=== PATIENT | female | born 1990 | race Caucasian/White ===

== ENCOUNTER 2025-04-23 11:35 | Emergency (ER) | payer MEDICARE, MEDICAID, SELFPAY ==
--- OUTSIDE RECORDS SUMMARY | 2025-04-21 11:29 | XMS_ITS | Encounter Summary ---
Author Organization [facility] Address [address] [place] [address] Care Team Providers Care Voip Technician Name Role Phone Sid Jo MD Primary Care Provider [phone] Reason for Visit * Reason Comments Oral Swelling Encounter Details Date Type Department Care Team (Late st Contact Info) Description 04/21/2025 11:29 AM EDT - 04/21/2025 1:43 PM EDT Emergency [facility] Emergency [address] [place] [id number] Aphthous ulcer (Primary Dx) Discharge Disposition: Home or Self Care Social History Tobacco Use Types Packs/Day Years Used Date Smoking Tobacco: Never Smokeless Tobacco: Never Alcohol Use Standard Drinks/Week Comments No 0 (1 standard drink = 0.6 oz pur e alcohol) Housing Instability Answer Date Recorde d Are you worried that in the next 2 months you may not have stable housing? No 04/12/2025 Food Access & Nutrition Answer Date Rec orded Do you have access to a vari ety of food including fruits and vegetables? Yes 04/12/2025 Access to Healthcare Answer Date Record ed Within the last 3 months, ho w many times did you visit the emergency department for your medical care? 2 04/12/2025 Health Literacy Answer Date Recorded How often do you need to hav e someone help you when you read instructions, pamphlets, or other written material from your doctor or pharmacy? Never 04/12/2025 Caregiver: How often do you need to have someone help you when you read instructions, pamphlets, or other written material from your doctor or pharmacy? Not on file 04/12/2025 Financial Risk Answer Date Recorded How hard is it for you to pa y for the very basics like food, housing, medical care, and air conditioning / heating? Not very hard 04/12/2025 Transportation Answer Date Recorded Has the lack of transportati on kept you from meetings, work, or from getting things needed for daily living? No Has the lack of transportati on kept you from medical appointments or from getting medications? No 04/12/2025 Social Isolation Answer Date Recorded How often do you feel lonely or isolated from th ose around you? Never 04/12/2025 Food Risk Answer Date Recorded Within the past 12 months we worried whether our food would run out before we got money to buy more. Never true 04/12/2025 Within the past 12 months th e food we bought just didn't last and we didn't have money to get more. Never true 04/12/2025 Dependent Care Answer Date Recorded Do you need help finding or paying for care for your loved ones. For example, child care team lead or elderly care for an older adult? No 04/12/2025 Education Answer Date Recorded Do you think completing more education or training, like finishing a GED, going to college, or learning a trade, would be helpful for you? No 04/12/2025 Employment and Income Answer Date Recor ded During the last four weeks, have you been actively looking for work? No 04/12/2025 Living Situation Answer Date Recorded What is your living situation? 0 04/12/2025 Interpersonal Safety Answer Date Record ed Physical Abuse 04/07/2025 Verbal Abuse 04/07/2025 Comments Unknown Sex and Gender Information Value Date Recorded Sex Assigned at Female 04/10/2025 12:51 PM EDT Legal Sex Female 1:28 PM EST Gender Identity Not on file Sexual Orientation Not on file documented as of this encounter Last Filed Vital Signs Vital Sign Reading Time Taken Comments Blood Pressure 122/90 04/21/2025 11:48 AM EDT Pulse 93 04/21/2025 11:48 AM EDT Temperature 37.1 C (98.8 F) 04/21/2025 11:48 AM EDT Respiratory Rate 18 04/21/2025 11:48 AM EDT Oxygen Saturation 94% 04/21/2025 11:48 AM EDT Inhaled Oxygen Concentration - - Weight 60.8 kg (134 lb) 04/21/2025 11:48 AM EDT Height 142.2 cm (4' 8 ) 04/21/2025 11:48 AM EDT Body Mass Index 30.04 04/21/2025 11:48 AM EDT documented in this encounter Functional Status * Are you deaf or do you have serious difficulty hearing? Answer Date of Assessment Author No 10/15/2024 2:00 AM Betty Bautista RN * Are you blind or do you have serious difficulty seeing, even when wearing glasses? Answer Date of Assessment Author No 10/15/2024 2:00 AM Betty Bautista RN * Do you have serious difficulty walking or climbing stairs? Answer Date of Assessment Author No 10/15/2024 2:00 AM Betty Bautista RN * Do you have serious difficulty dressing or bathing? Answer Date of Assessment Author No 10/15/2024 2:00 AM Betty Bautista RN * Because of a physical, mental, or emotional condition, do you have serious difficulty doing errandsalone such as visiting the doctor? Answer Date of Assessment Author Yes 10/15/2024 2:00 AM Betty Bautista RN documented as of this encounter Mental Status * Because of a physical, mental, or emotional condition, do you have serious difficulty concentrating, remembering, or making decisions? (5 years old or older) Answer Entry Date Author Yes 10/15/2024 2:00 AM Betty Bautista RN documented in this encounter Discharge Instructions * Discharge Instructions* MIMI Santamaria - 04/21/2025 1:12 PM EDT The lower lip blister is a canker sore or aphthous ulcer caused by a virus. Use Tylenol 650 for pain 1 tab 2 or 3 times a day as needed. Give her popsicles to suck on his it will help with the swelling and the pain and hydrate her. Keep her hydrated with water. Continue all other outpatient meds asprescribed. I have given you a note to [facility]. Caretakers agreed with the diagnosis and treatment plan were discharged stable. * Attachments The following attachments cannot be sent through Care Everywhere. * Armando Seo (Vincentian) documented in this encounter Medications at Time of Discharge ascorbic acid (VITAMIN C) 500 mg chewable tablet Chew 2 tablets (1,000 mg total) 1 (one) time each day. 07/23/2022 atorvastatin (LIPITOR) 80 mg tablet Take 1 tablet (80 mg total) by mouth at bedtime. buffered aspirin (BUFFERIN) 325 mg tablet Take 1 tablet (325 mg total) by mouth 1 (one) time each day. cloBAZam (ONFI) 10 mg tablet TAKE 1 TABLET BY MOUTH AT BEDTIME 90 tablet 01/23/2025 clonazePAM (KlonoPIN) 0.5 mg tablet Take 1 tablet (0.5 mg total) by mouth 3 (three) times a day if needed for seizures. Max Daily Amount: 1.5 mg 20 each 04/11/2025 05/11/2025 diphenhydramine-a luminum-magnesium -simethicone-lido roland (MAGIC MOUTHWASH) [id number] mg/30 mL liquid suspension Use 10 mL in the mouth or throat 4 (four) times a day. 04/07/2025 famciclovir (FAMVIR) 500 mg tablet Take 1 tablet (500 mg total) by mouth 3 (three) times a day for 7 days. 21 each 04/21/2025 04/28/2025 ferrous sulfate 325 mg (65 mg iron) EC tablet Take 1 tablet (325 mg total) by mouth 3 (three) times a day with meals. Do not crush, chew, or split. hydrocortisone (CORTEF) 5 mg tablet Take 1 tablet (5 mg total) by mouth 1 (one) time each day. Take 2 tablets (10 mg) in the morning and 1 tablet (5 mg) in the evening lacosamide (VIMPAT) 50 mg tablet Take 1 tablet (50 mg total) by mouth 2 (two) times a day. Max Daily Amount: 100 mg 60 tablet 04/11/2025 05/11/2025 lamoTRIgine (LaMICtal) 100 mg tablet Take 1 tablet (100 mg total) by mouth 2 (two) times a day. 02/23/2023 lamoTRIgine (LaMICtal) 25 mg tablet Take 1 tablet (25 mg total) by mouth 2 (two) times a day. 02/23/2023 levETIRAcetam (KEPPRA) 750 mg tablet Take 1 tablet (750 mg total) by mouth 2 (two) times a day. 60 each 04/11/2025 05/11/2025 levothyroxine (SYNTHROID, LEVOTHROID) 50 mcg tabletIndications :Hypothyroidism, unspecified type Take 1 tab daily 6 days a week 234 tablet 3 06/30/2024 OXcarbazepine (TRILEPTAL) 150 mg tablet Take 1 tablet (150 mg total) by mouth 1 (one) time each day. 04/08/2025 04/08/2026 OXcarbazepine (TRILEPTAL) 300 mg tablet Take 1 tablet (300 mg total) by mouth at bedtime. 04/07/2025 04/07/2026 pantoprazole (PROTONIX) 40 mg EC tablet Take 1 tablet (40 mg total) by mouth 1 (one) time each day before breakfast. 180 tablet 1 04/17/2025 sodium chloride 1 gram tablet Take 1 tablet (1 g total) by mouth 2 (two) times a day. 10/29/2023 documented as of this encounter Ordered Prescriptions Prescription Sig Dispense Quantity Refills Last Filled Start Date End Date famciclovir (FAMVIR) 500 mg tablet Take 1 tablet (500 mg total) by mouth 3 (three) times a day for 7 days. 21 each 04/21/2025 04/28/2025 documented in this encounter Discharge Disposition Disposition Code Departure Means Destination Comment s Home or Self Care documented in this encounter Progress Notes * Arlen Madden RN - 04/21/2025 12:15 PM EDT Per pts mother she has been on Keppra since 04/04/25. Reports last night she started saying her teeth bothered her last night and this morning when they woke up they noticed that the pts lip was swollen and that the pt complains that it hurts. The pts parents think that it is related to the Keppra. * Arlen Madden RN - 04/21/2025 11:44 AM EDT Pts airway is patent, throat visualized and no edema or erythema noted. There is edema to the rightlower lip. Pts respirations are even and non-labored. Lungs clear to auscultation. No signs of respiratory distress, SpO2 94% on RA. Verbal redirections given to pt to not pick at lip. Pt given towelto use to keep hands occupied. Plan of care ongoing. * Arlen Madden RN - 04/21/2025 11:29 AM EDT Pt BIBA from home with c/o right lower lip swelling. Per EMS airway patent, lungs clear, no urticaria, no hives present. Per family they noticed the swelling this morning no time given. Pt has developmental delays. Pt continues to pick at lip. Pt is alert. * MIMI Santamaria - 04/21/2025 11:27 AM EDT HPI Chief Complaint Patient presents with Oral Swelling CC: Swollen lip blister. HPI: This is a developmentally delayed 34-year-old female [facility] in a penitentiary who developed swelling and a blistering on the inside right lower lip few days ago. Caretakers state there are no othercomplaints or injuries or concerns. Needs a note to get back in the penitentiary on Thursday. 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 DX:Congenital transverse deficiency of lower limb; COMMENT: , secondary to pathologic fractures, neurofibromatosis CVA (cerebral vascular accident) ([facility] V24, [facility] V28) 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, not elsewhere classified 06/19/2006 DX: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, not elsewhere classified; COMMENT: delayed puberty, followed by dr weinstein, on estrogen patch and provera cycling Depressive disorder, not elsewhere classified 06/19/2006 DX:Depressive disorder, not elsewhere classified; COMMENT: [facility], onProzac and Respirdal Esotropia, unspecified DX:Esotropia, unspecified GERD (gastroesophageal reflux disease) 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) Hearing loss Hyperlipidemia Hyponatremia Hypopituitarism ([facility] V24) Hypothyroid Influenza DX:Influenza; COMMENT: 06/01 admitted Legally blind Malignant neoplasm of brain, unspecified site 06/19/2006 DX:Malignant neoplasm of brain, unspecified site; COMMENT: followed by dr zamora and oncology Mild intellectual disabilities 05/04/2006 DX:Mild intellectual disabilities; COMMENT: see neuropsych eval 03/29 Neurofibromatosis, 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) 05/04/2006 DX:Neurofibromatosis, 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, current or active state 06/19/2006 DX:Other specified pervasive developmental disorders, current or active state Pneumonia, organism unspecified(486) DX:Pneumonia, organism unspecified(486); COMMENT: aspiration Unspecified epilepsy with intractable epilepsy 05/04/2006 DX:Unspecified epilepsy with intractable epilepsy; COMMENT: followed by dr malagon, currently on Depakote and Phenobarb vagal nerve stimulator placed 01/27, dr conti Unspecified hypothyroidism 06/19/2006 DX:Unspecified hypothyroidism; COMMENT: on synthroid Unspecified otitis media 1992x3, 1993x2, DX:Unspecified otitis media Wheezing , DX:Wheezing Past Surgical History: Procedure Laterality Date ESOPHAGOGASTRODUODENOSCOPY 05/21/2021 PROCEDURE: WA EGD TRANSORAL BIOPSY SINGLE/MULTIPLE; COMMENT: Grade C esophagitis and hiatal hernia.recommend taking omeprazole in am before breakfast and NO food or drink 2 hours before bed OTHER SURGICAL HISTORY 1994 PROCEDURE: HISTORICAL BELOW KNEE AMP; COMMENT: secondary to to pathological fracture OTHER SURGICAL HISTORY 2005 PROCEDURE: [place] INJECTION AA&/STRD VAGUS NERVE; COMMENT: vagus nerve stimulator, again in 2019 Family History Problem Relation Name Age of Onset Hypertension Mother osteoporosis Prostate cancer Father HTN Drug abuse Brother +heroin Heart attack Maternal Grandmother diabetes, COPD, HTN Other (Other: calciphylaxis ) Maternal Grandfather Heart attack Paternal Grandfather Breast cancer Neg Hx Colon cancer Neg Hx Ovarian cancer Neg Hx Uterine cancer Neg Hx Social History Tobacco Use Smoking status: Never Smokeless tobacco: Never Substance Use Topics Alcohol use: No Drug use: No Review of Systems Review of Systems Physical Exam : General appearance reveals a developmentally delayed 34-year-old female with a canker sore right lower inner lip. Head normocephalic atraumatic. Face: Normal no erythema cellulitis swelling or adenopathy. Oral exam: Lips and mouth essentially normal other than a 7.5 mm aphthous ulcer on the inner lower lip. There is some soft tissue swelling and tenderness. No tongue swelling or angioedema airway patent. EENT: Benign normal. Neck: Supple no adenopathy thyromegaly rigidity stridor or retractions. Heart: Regular. Lungs: Clear normal respiratory effort. Mental status unobtainable due to developmental delay. Skin: No pallor cyanosis icterus rashes or mottling. ED Triage Vitals [04/21/25 1148] Temp Heart Rate Resp BP 37.1 ??C (98.8 ??F) 93 18 (!) 122/90 SpO2 Temp Source Heart Rate Source Patient Position 94 % Axillary Monitor Sitting BP Location FiO2 (%) Left arm -- Physical Exam ED Course & MDM : Differential diagnoses Ludewig's angina strep infection impetigo cellulitis abscess herpes simplex 1 herpes simplex 2 canker sore or aphthous ulcer. Clinical Impressions as of 04/21/25 1315 Aphthous ulcer Medical Decision Making Procedures MIMI Santamaria 04/21/25 1448 MIMI Santamaria 04/21/25 1502 Cosigned by Manoj Gonzalez MD at 04/22/2025 5:59 AM EDT documented in this encounter Miscellaneous Notes * ED Bed Hold Note - Princess Leslie RN - 04/21/2025 11:29 AM EDT Bed: YW-20 Expected date: 04/21/25 Expected time: Means of arrival: Comments: YADY, 34 F, SWOLLEN MOUTH, STARTED LAST NIGHT, WORSENING, HX DEV DELAY documented in this encounter Plan of Treatment Upcoming Encounters Date Type Department Care Team (Late st Contact Info) Description 05/19/2025 9:00 AM EDT Office Visit Adult Medicine [facility] - [address] [phone] Sid Jo MD [address] [place] [address] 07/03/2025 9:00 AM EST Office Visit Endocrinology - [address] [phone] Pushpa Lebron MD [address] [place] [id number] documented as of this encounter Visit Diagnoses Diagnosis Aphthous ulcer- Primary Oral aphthae documented in this encounter Administered Medications Inactive Administered Medications - up to 3 most recent administrations Medication Order MAR Action Action Date Dose Rate Site acetaminophen (TYLENOL) tablet 650 mg 650 mg, oral, Once, On Thu04/21/25 at 1312, For 1 dose Given 04/21/2025 1:39 PM EDT 650 mg documented in this encounter Active and Recently Administered Medications Times are shown in EDT. Scheduled Medication Order 04/19/2025 04/20/2025 04/21/2025 acetaminophen (TYLENOL) tablet 650 mg (COMPLETED) 650 mg, oral, Once, On Thu04/21/25 at 1312, For 1 dose 1339 (Given - Provid er: Arlen Madden RN) documented in this encounter Orders Medications Ordered That Vitaly ht Not Have Been Administered Count Last Ordered Date First Ordered Date acetaminophen (TYLENOL) tablet 650 mg 1 documented in this encounter Care Teams Voip Technician Relationship Specialty Start Date End Date Sid Jo MD [address] [place] [address] PCP - General Internal Medicine 06/29/24 documented as of this encounter
--- NOTE | ~2025-04-23 | CT_ITS ---
CLINICAL HISTORY: AMS ? trauma CT head without contrast. COMPARISON: None provided. FINDINGS: Mucosal thickening present within the ethmoid sinuses. Mastoid air cells are clear. No calvarial fracture. Atherosclerotic intracranial vasculature. No mass or mass effect. No intracranial hemorrhage or abnormal extra-axial fluid collection. Bilateral basal ganglia mineralization. Chronic lacunar infarcts present within the basal ganglia bilaterally versus prominent perivascular spaces. Ventricles are proportion with the degree of [id number] global cerebral volume loss without evidence of hydrocephalus. Basilar cisterns are patent. Posterior fossa is unremarkable. IMPRESSION: 1. No acute intracranial findings. 2. Atherosclerotic intracranial vasculature, greater than expected for age. 3. Dmen-ki-ieognidq global cerebral volume loss, greater than expected for age. 4. Chronic bilateral basal ganglia infarcts with basal ganglia mineralization. This document has been electronically signed by: Deepak Dias MD on 04/23/2025 14:26:25
--- NOTE | ~2025-04-23 | XR_ITS ---
CLINICAL HISTORY: hip pain AP pelvis, Two views of the right hip. COMPARISON: None provided. FINDINGS: Pelvic ring appears intact. Visualized lower lumbar spine is unremarkable. Visualized portions of the contralateral left hip appear intact. right hip: Right Visualized portions of the proximal right femur appears intact. No trabecular disruption or cortical discontinuity. Femoral head is appropriately seated in the acetabulum. IMPRESSION: 1. No radiographic evidence of acute injury to the pelvis and right hip. This document has been electronically signed by: Deepak Dias MD on 04/23/2025 13:03:47
[2025-04-23 11:52] VITALS: BP 117/96; PULSE 92; RESP 16; TEMP 37.6; O2SAT 98; BMI 28.1
--- NOTE | 2025-04-23 11:53 | ED.AMS ---
HPI - Altered Mental Status General Chief Complaint: General Medical Stated Complaint: LETHARGIC WEAKNESS Time Seen by Provider: 04/23/25 11:45 Source: EMS Mode of arrival: EMS Limitations: other (Developmentally delayed) History of Present Illness ED Provider: HPI narrative: 34-year-old female with a history of developmental delay, kinsey hypopituitarism, renal stones and neurofibromatosis type 1, medically refractory seizures,, left BKA, I reviewed the patient's notes from neurology office Dr. David from [facility] on 04/20/2025, patient is currently on clonazepam, oxcarbazepine, and Depakote as seizure medications, patient also has VNS for refractory seizures implanted at [facility]. Related Data Home Medications ?Medication ?Instructions ?Recorded ?Confirmed amoxicillin 875 mg-potassium 1 tab PO BID 12/11/21 clavulanate 125 mg tablet ascorbic acid (vitamin C) 500 mg 500 mg PO DAILY 12/11/21 chewable tablet (Vitamin C) aspirin 325 mg tablet 325 mg PO DAILY 12/11/21 cholecalciferol (vitamin D3) 25 25 mcg PO DAILY 12/11/21 mcg (1,000 unit) tablet clobazam 10 mg tablet 10 mg PO BEDTIME 12/11/21 estradiol 14 mcg/24 hr weekly 1 patch topical QWEEK 12/11/21 transdermal patch (Menostar) ferrous sulfate 325 mg (65 mg 325 mg PO DAILY 12/11/21 iron) tablet (FeroSul) lamotrigine 100 mg tablet mg PO 12/11/21 lamotrigine 25 mg tablet,extended 0 mg PO BID PRN 12/11/21 release 24 hr levothyroxine 50 mcg tablet 50 mcg PO DAILY 12/11/21 omeprazole 40 mg capsule,delayed 40 mg PO DAILY 12/11/21 release oxcarbazepine 150 mg tablet 300 mg PO BID 12/11/21 progesterone micronized 100 mg 100 mg PO BEDTIME 12/11/21 capsule sodium chloride 1,000 mg soluble 2,000 mg PO DAILY 12/11/21 tablet Previous Rx's ?Medication ?Instructions ?Recorded clindamycin HCl 300 mg capsule 300 mg PO TID 7 days #21 caps 04/23/25 (Cleocin HCl) oxycodone 5 mg/5 mL oral solution 5 mg (5 mL) PO Q6H PRN pain 5 days 04/23/25 #100 mL Allergies Allergy/AdvReac Type Severity Reaction Status Date / Time No Known Allergies Allergy Unknown Verified 04/23/25 11:55 Review of Systems Review of Systems: Yes Unobtainable due to mental status [facility] Social History Social History Patient Tobacco Use Status: Never used Tobacco Advance Directives: Yes Advance Directives on File: Yes Advance Directives Date on File: 04/23/25 Do you have a plan to hurt others: No Plan Physical Exam ED Vital Signs: Vital Signs - 24 hr 04/23/25 11:52 Temperature 99.6 F Pulse Rate 92 Respiratory Rate 16 Blood Pressure 117/96 H Pulse Oximetry 98 Oxygen Delivery Method Room Air BMI result Body Mass Index 28.1 Const Other: See pictures for bruising Patient is tearful, does not make eye contact No wheezing no rales Dry lips, possibly lower lip blister dried Breath sounds equal bilaterally Abdominal exam without distention Pelvis is stable No bruising over her hips, no deformities, left BKA noted with clean stump Left upper extremity contracture noted Medications Administered Discontinued Medications Generic Name Dose Route Start Last Admin Trade Name Freq PRN Reason Stop Dose Admin Haloperidol Lactate 2.5 mg 04/23/25 11:54 04/23/25 12:13 Haloperidol Lactate 5 Mg/Ml Vial IVPUSH 04/23/25 11:55 2.5 mg ONCE ONE Administration Ketorolac Tromethamine 15 mg 04/23/25 13:08 04/23/25 13:56 Ketorolac Tromethamine 15 Mg/Ml Vial IVPUSH 04/23/25 13:09 15 mg ONCE ONE Administration Lidocaine HCl 15 ml 04/23/25 13:08 04/23/25 13:56 Lidocaine Hcl Viscous 2 % 15 Ml Solution PO 04/23/25 13:09 15 ml ONCE ONE Administration Medical Decision Making Medical Decision Making MDM Narrative: 12:07 of the time of my initial evaluation patient is family members and not at bedside I would like to speak to them regarding the bruising and with the concerns are, she had a visit to neurologist Dr. David 3 days ago, she has complex history of seizures, recent admission, transfer to [place] and then seeing her neurologist on outpatient basis, last seizure reportedly by EMS 2 days ago, the bruising may be due to seizures and falls etc. I would like to make sure there was no body Outside of parents caring for the patient, and will document my rapport with them. We will order intravenous Haldol for sedation for further imaging as I will not be able to obtain CT of the brain I would like to make sure she does not have traumatic brain injury and straight cath for UTI 1240: Family is at bedside, I reviewed patient's discharge instructions from [facility] on 04/21/2025, she was discharged on famciclovir for canker sore, she is not taking Depakote as I previously read a neurology note, she is on lacosamide, lamotrigine, and levetiracetam and oxcarbazepine, and I had a chance to speak with the family, her mom and that has been providing care for her many years, she has not from a jail she goes to daycare center there, she has had this discomfort or crying out since April 04, went to [facility] then transferred to [place], then returned to the [facility] for canker sore, in the meantime was also seen by her neurologist, bruising from seizure/transport, parents are involved and I do not have any suspicion as initially described, patient has been sleeping, but I have re-examined her now that she is more calm and here exam without any foreign bodies, there was no drainage from the eyes, or pharyngeal area examined there were no in her cuts or sores that may be bothering her An otherwise I did not note any other areas that maybe hurting her, I am also considering maybe patient has dental pain, we will consider if to be discharged on oral antibiotics and pain medications, however if patient is still continue the crying I am going to have to speak to case management/social work as well because in the current situation family would not be able to provide care for her but in between neurology evaluation, [facility], [facility] with Neurology evaluations, as I explained to parents I am not sure what more I can do outside of what I am already doing to determine the cause of her potential physical discomfort. 15:11 patient has been sleeping, mom is going to step out to eat, I will observe patient her workup thus far has been reassuring, and I spoke to mom I may discharge patient on oral antibiotics and oral pain meds for presumed dental infection, and return precautions. Differential Diagnosis Differential Diagnoses: The differential diagnosis associated with the presentation includes (Neglect or abuse by tissue technologist, status epilepticus, UTI, traumatic brain injury, dehydration,) Admission/Observation Consideration of admission/observation: Escalation of care including admission/observation considered 2022 Emergency Medicine Coding Guide from [employer] on 04/23/2025 All calculations should be rechecked by clinician prior to use RESULT SUMMARY: 5 Estimated Level of Service Problems: High (5) Risk: High (5) Data: Extensive (5) NARRATIVE MDM: This patient's problem complexity is High as patient: may have an acute or chronic illness/injury posing a threat to life or body function. This patient's risk is High due to: overall presentation requiring evaluation for a potentially High-risk process. This patient's data complexity is Extensive due to: -multiple tests ordered/reviewed -external notes reviewed -independent historian used to support history -independent interpretation of imaging or EKG INPUTS: Number and Complexity ?> 2 = 5: illness/injury w/life or body threat (b) Risk level ?> 4 = High Tests ordered ?> 3 = >= Tests results reviewed (excluding labs) ?> 2 = 2 Prior external notes reviewed ?> 2 = 2 Assessment requiring and independent historian ?> 1 = Yes Independent interpretation of tests ?> 1 = Yes Discussed management/test interpretation w/external professional ?> 0 = No Lab Data [facility] Lab Attestation statement: I reviewed the patient's lab results. 04/23/25 12:11 04/23/25 12:11 Labs: Lab Results 04/23/25 04/23/25 04/23/25 Range/Units 11:48 12:11 13:57 WBC 13.6 H (4.8-10.8) X10*3/uL RBC 4.74 (4.20-5.50) X10*6/uL Hgb 14.7 (12.0-16.0) g/dl Hct 42.8 (37.0-47.0) % MCV 90.3 (80.0-98.0) fL MCH 31.0 (27.0-33.0) pg MCHC 34.3 (31.0-35.0) g/dl RDW 13.5 (11.0-16.0) % Plt Count 349 (160-400) X10*3/uL MPV 9.5 (9.4-12.3) fL Immature Gran % (Auto) 0.6 H (0.0-0.4) % Neut % (Auto) 75.8 H (45-73) % Lymph % (Auto) 13.3 L (20-40) % [place] % (Auto) 5.2 (2-11) % Eos % (Auto) 4.4 H (0-4) % Baso % (Auto) 0.7 (0-2) % Lymph # (Auto) 1.8 (1.2-4.9) X10*3/uL [place]et # (Auto) 0.7 (0.1-1.2) X10*3/uL Eos # (Auto) 0.6 H (0.0-0.4) X10*3/uL Baso # (Auto) 0.1 (0.0-0.2) X10*3/uL Abs Immat Gran (auto) 0.08 H (0.00-0.03) X10*3/uL Absolute Neuts (auto) 10.3 H (2.0-8.3) x10*3/uL Absolute Nucleated RBC 0.000 (0.0-0.012) X10*3/uL Nucleated RBC % (auto) 0.0 (0.0-0.2) /100WBC Sodium 139 (135-145) mmol/L Potassium 3.3 (3.3-5.1) mmol/L Chloride 105 (96-108) mmol/L Carbon Dioxide 23 (22-29) mmol/L Anion Gap 14 (12-20) BUN 10 (9-16) mg/dL Creatinine 0.66 (0.5-1.4) mg/dL Estim Creat Clear Calc 87.0 Estimated GFR > 60 POC Glucose 99 (60-115) mg/dL Random Glucose 93 (60-115) mg/dL Calcium 9.3 (8.4-10.2) mg/dL Urine Color Dark Yellow Urine Appearance Clear Urine pH 6.0 (5.0-9.0) Ur Specific [place] >= 1.030 H (1.005-1.025) Urine Protein Trace (Neg-Trace) mg/dL Urine Glucose (UA) Negative (Negative) mg/dL Urine Ketones Trace (Negative) mg/dL Urine Blood Negative (Negative) Urine Nitrite Negative (Negative) Ur Leukocyte Esterase Trace H (Negative) Urine RBC 0-2 (0-2) /HPF Urine WBC 0-5 (0-5) /HPF Ur Squamous Epith Cells 0-2 (0-2) /HPF Urine Bacteria None Seen (None Seen) Hyaline Casts 0-2 (0-2) /LPF Valproic Acid < 12.5 L (50.0-100.0) mcg/mL Independent Interpretation I performed an independent interpretation of an: CT Scan (No acute bleeds, calcifications bilateral thalami) Radiology Impression Discussion of test interpretation with radiology: I have reviewed the radiologist's reading. (IMPRESSION: 1. No acute intracranial findings. 2. Atherosclerotic intracranial vasculature, greater than expected for age. 3. [id number] global cerebral volume loss, greater than expected for age. 4. 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 History obtained from or confirmed by: Parent and EMS External Record Review External record reviewed: Inpatient record and Outpatient record Prescription Management I considered prescription management with: Pain Medication and Antibiotic Chronic Conditions Patient?s care impacted by: Other (Bed-bound, development delay) Critical Care Time Critical Care Time Critical Care Time: Yes Total Critical Care Time: 35 Attestation: Time is exclusive of separately billable procedures. Time includes: direct patient care, patient reassessment, coordination of patient care, interpretation of data (laboratory data, pulse oximetry, arterial blood gases and chest xrays), review of patient's medical records, medical consultation and documentation of patient care. Procedures excluded from critical care time: central intravenous line placement and electrocardiography. Discharge Plan Discharge Clinical Impression: Acute alteration in mental status, Developmental delay with variable neurologic and brain abnormalities Additional Instructions: Repeat workup in the emergency department included x-ray of the pelvis and hip, cat scan of the brain, blood work, urinalysis, vital signs has been stable, has had no fevers, no elevated heart rate or blood pressure that can sometimes be seen in patients with pain, as discussed except for bruising that was concerning to me initially however we have discussed that this is not due to neglect, I did not find any other causes for patient to be in discomfort and I have closely examine her head-to-toe, dental infection is a possibility and we have had a discussion regarding treating it with antibiotics and some pain medications, give her 2.5 mL to 5 mL of oxycodone every 4-6 hours needed for pain, with antibiotics for the next 7 days, make sure she has a appointment with her dentist, and keep an eye on her symptoms As discussed she has a complex history of seizures and her neurologist is in [facility] and she has been admitted in [facility] you can always bring her back to the ER here for re-evaluation but due to her complex seizure history is a high chance she is going to be transferred as well to facility that has a neurologist available in ER Prescriptions: New clindamycin HCl [Cleocin HCl] 300 mg capsule 300 mg PO TID 7 Days Qty: 21 0RF oxycodone 5 mg/5 mL solution 5 mg PO Q6H PRN (Reason: pain) 5 Days Qty: 100 0RF Rx Instructions: Partial Fill upon patient request. No Action ferrous sulfate [FeroSul] 325 mg (65 mg iron) tablet 325 mg PO DAILY ascorbic acid (vitamin C) [Vitamin C] 500 mg tablet,chewable 500 mg PO DAILY amoxicillin-pot clavulanate 875-125 mg tablet 1 tab PO BID omeprazole 40 mg capsule,delayed release(DR/EC) 40 mg PO DAILY lamotrigine 100 mg tablet PO Menostar 14 mcg/24 hr patch weekly 1 patch topical QWEEK clobazam 10 mg tablet 10 mg PO BEDTIME cholecalciferol (vitamin D3) 25 mcg (1,000 unit) tablet 25 mcg PO DAILY oxcarbazepine 150 mg tablet 300 mg PO BID levothyroxine 50 mcg tablet 50 mcg PO DAILY lamotrigine 25 mg tablet extended release 24hr 0 mg PO BID PRN progesterone micronized 100 mg capsule 100 mg PO BEDTIME sodium chloride 1,000 mg tablet,soluble 2,000 mg PO DAILY aspirin 325 mg tablet 325 mg PO DAILY Print Language: Kiswahili
[2025-04-23 11:56] VITALS: BP 112/70; PULSE 108; O2SAT 95
[2025-04-23 12:02] LABS: Glucose, Whole Blood 99 mg/dL (60-115)
--- NOTE | 2025-04-23 12:15 | PC.NURSE ---
Pt comes from home for increased lethargy/AMS along with increased discomfort/crying- per family. Pt is non-verbal at baseline, hx of CVA with L sided deficits and seizure disorder- last seizure x2 days ago. Pt arrived to ED 3 intermittently tearful, frequently grabbing at R hip/R lower back while tearful- no bruising/deformities noted. Per ems/family- pt has been in and out of the hospital intermittently recently d/t these same symptoms. Pt alert, arousable to verbal stimuli, respirations even and unlabored, no increased wob/sob noted, maintaining O2 sat >92% on RA, normal sinus on monitor, HR 60s-70s, abdomen soft, nontender on palpation. Bruises of various healing stages on body- R upper bicep, L upper chest, R side of face/cheek. Photos taken and sent to . POC 99, rectal temp 99.6. Bladder scan showed 77mls- MD made aware. Order for straight cath- will recheck bladder scan at later time to obtain urine sample. 20g IV Right ac- pt given IVP haldol d/t discomfort. Family at bedside, call vargas within reach, all needs met at this time.
[2025-04-23 12:16] LABS: MANUAL DIFF FLAG NO
[2025-04-23 12:18] LABS: Hematocrit 42.8 % (37.0-47.0); Hemoglobin 14.7 g/dl (12.0-16.0); Imm Gran Abs Auto 0.08 X10*3/uL (0.00-0.03); Imm Gran Pct Auto 0.6 % (0.0-0.4); Lymphocytes Absolute Auto 1.8 X10*3/uL (1.2-4.9); Mean Corpuscular HGB Conc 34.3 g/dl (31.0-35.0); Mean Corpuscular Hemoglobin 31.0 pg (27.0-33.0); Mean Corpuscular Volume 90.3 fL (80.0-98.0); NRBC Abs Auto 0.000 X10*3/uL (0.0-0.012); NRBC Pct Auto 0.0 /100WBC (0.0-0.2); Platelet Count 349 X10*3/uL (160-400); Red Blood Count 4.74 X10*6/uL (4.20-5.50); White Blood Count 13.6 X10*3/uL (4.8-10.8)
[2025-04-23 12:32] LABS: Anion Gap 14 (12-20); Blood Urea Nitrogen 10 mg/dL (9-16); Calcium 9.3 mg/dL (8.4-10.2); Carbon Dioxide 23 mmol/L (22-29); Chloride 105 mmol/L (96-108); Creatinine Clr Calc Pharmacy 87.0; Estimated Glomerular Filt Rate > 60; Potassium 3.3 mmol/L (3.3-5.1); Sodium 139 mmol/L (135-145)
--- OUTSIDE RECORDS SUMMARY | 2025-04-23 12:47 | XMS_ITS | Clinical Summary ---
Author Organization [facility] [address] [place] [address] Address [address] [place], [place] Phone Care Team Providers Care Oracle Database Manager Name Role Phone iSd Jo MD Primary Care Provider [phone] Allergies Active Allergy Reactions Criticality Noted Date Comments Amoxicillin-Pot Clavulanate GI intolerance Low 05/06/2020 Carbamazepine Dermatitis,Rash 03/15/2006 Gabapentin Dermatitis,Rash 03/15/2006 Levetiracetam Swelling 04/21/2025 Per mother pts lip swollen from keppra Linezolid 02/23/2023 Sulfamethoxazole-Trime thoprim Seizures High 02/10/2025 Valproic Acid 06/23/2007 Hyponatremia and thrombocytopenia 10/28 Zonisamide Dermatitis,Rash 03/15/2006 Medications sodium chloride 1 gram tablet Take 1 tablet (1 g total) by mouth 2 (two) times a day. 10/29/19 24 Active lamoTRIgine (LaMICtal) 100 mg tablet Take 1 tablet (100 mg total) by mouth 2 (two) times a day. 02/24/20 23 Active lamoTRIgine (LaMICtal) 25 mg tablet Take 1 tablet (25 mg total) by mouth 2 (two) times a day. 02/24/20 23 Active ascorbic acid (VITAMIN C) 500 mg chewable tablet Chew 2 tablets (1,000 mg total) 1 (one) time each day. 07/23/20 22 Active levothyroxine (SYNTHROID, LEVOTHROID) 50 mcg tabletIndications: Hypothyroidism, unspecified type Take 1 tab daily 6 days a week 234 tablet 3 06/30/20 24 Active Additional Information Patient taking differently: 50 mcg oral Every morning before breakfast, THURSDAY-THURSDAY ONLY, SKIP THURSDAY, Reported on 04/17/2025 cloBAZam (ONFI) 10 mg tablet TAKE 1 TABLET BY MOUTH AT BEDTIME 90 tablet 01/24/20 25 Active Additional Information Patient taking differently: 10 mg oral Nightly, Reported on 04/17/2025 OXcarbazepine (TRILEPTAL) 150 mg tablet Take 1 tablet (150 mg total) by mouth 1 (one) time each day. 04/08/20 25 026 Active OXcarbazepine (TRILEPTAL) 300 mg tablet Take 1 tablet (300 mg total) by mouth at bedtime. 04/07/20 25 026 Active diphenhydramine-al bagnuz-iprndyjui-n imethicone-lidocai ne (MAGIC MOUTHWASH) [phone] mg/30 mL liquid suspension Use 10 mL in the mouth or throat 4 (four) times a day. 04/07/20 25 Active buffered aspirin (BUFFERIN) 325 mg tablet Take 1 tablet (325 mg total) by mouth 1 (one) time each day. Active ferrous sulfate 325 mg (65 mg iron) EC tablet Take 1 tablet (325 mg total) by mouth 3 (three) times a day with meals. Do not crush, chew, or split. Active atorvastatin (LIPITOR) 80 mg tablet Take 1 tablet (80 mg total) by mouth at bedtime. Active hydrocortisone (CORTEF) 5 mg tablet Take 1 tablet (5 mg total) by mouth 1 (one) time each day. Take 2 tablets (10 mg) in the morning and 1 tablet (5 mg) in the evening Active clonazePAM (KlonoPIN) 0.5 mg tablet Take 1 tablet (0.5 mg total) by mouth 3 (three) times a day if needed for seizures. Max Daily Amount: 1.5 mg 20 each 04/11/20 25 Active lacosamide (VIMPAT) 50 mg tablet Take 1 tablet (50 mg total) by mouth 2 (two) times a day. Max Daily Amount: 100 mg 60 tablet 04/11/20 Active Additional Information Patient not taking.Reported on 04/17/2025 levETIRAcetam (KEPPRA) 750 mg tablet Take 1 tablet (750 mg total) by mouth 2 (two) times a day. 60 each 04/11/20 25 Active pantoprazole (PROTONIX) 40 mg EC tablet Take 1 tablet (40 mg total) by mouth 1 (one) time each day before breakfast. 180 tablet 1 04/17/20 Active famciclovir (FAMVIR) 500 mg tablet Take 1 tablet (500 mg total) by mouth 3 (three) times a day for 7 days. 21 each 04/21/20 Active ferrous sulfate 325 mg (65 mg elemental iron) tablet Take 1 tablet (325 mg total) by mouth 1 (one) time each day. 08/31/19 Discontin ued(Stop Taking at Discharge ) aspirin 325 mg tablet Take 1 tablet (325 mg total) by mouth 1 (one) time each day. Discontin ued(Stop Taking at Discharge ) clonazePAM (KlonoPIN) 0.5 mg tablet Take 0.5 mg by mouth as needed. For seizures Discontin ued(Thera py completed ) clonazePAM (KlonoPIN) 0.5 mg disintegrating tablet Take 1 tablet (0.5 mg total) by mouth 3 (three) times a day if needed for seizures. Take 1 Tablet by mouth. Discontin ued(Stop Taking at Discharge ) ferrous sulfate 324 mg (65 mg elemental iron) EC tablet Take 325 mg by mouth. Discontin ued(Stop Taking at Discharge ) hydrocortisone (CORTEF) 5 mg tabletIndications: Hypopituitarism (CMS/HCC V24) Take 2 tabs in AM and 1 tab in PM 270 tablet 3 06/30/20 24 Discontin ued(Stop Taking at Discharge ) atorvastatin (LIPITOR) 80 mg tablet Take 1 tablet (80 mg total) by mouth at bedtime. at bedtime. 90 tablet 2 11/15/19 25 025 Discontin ued(Stop Taking at Discharge ) cholecalciferol (VITAMIN D-3) 25 mcg (1,000 unit) tablet TAKE 1 TABLET BY MOUTH EVERY DAY 90 tablet 1 01/24/20 25 025 Discontin ued(Stop Taking at Discharge ) cetirizine (ZyrTEC) 10 mg tablet TAKE 1 TABLET BY MOUTH DAILY NEEDED FOR ALLERGIES 90 tablet 1 01/24/20 25 025 Discontin ued(Stop Taking at Discharge ) pantoprazole (PROTONIX) 40 mg EC tablet TAKE 1 TABLET(40 MG) BY MOUTH 1 TIME EACH DAY BEFORE BREAKFAST 90 tablet 1 02/09/20 25 025 Discontin ued(Reord er) OXcarbazepine (TRILEPTAL) 150 mg tablet Take 1 tablet (150 mg total) by mouth 2 (two) times a day. 270 tablet 1 02/14/20 025 Discontin ued(Stop Taking at Discharge ) hydrocortisone (CORTEF) 10 mg tablet Take 1 tablet (10 mg total) by mouth 1 (one) time each day. Discontin ued(Stop Taking at Discharge ) OXcarbazepine (TRILEPTAL) 300 mg tablet Take 1 tablet (300 mg total) by mouth at bedtime. 025 Discontin ued(Stop Taking at Discharge ) hydrocortisone sod succ, PF, (SOLU-CORTEF) 100 mg/2 mL recon soln injection Infuse 1 mL (50 mg total) into a venous catheter every 6 (six) hours. 04/07/20 025 Discontin ued(Stop Taking at Discharge ) levETIRAcetam (KEPPRA) injection Infuse 2.5 mL (250 mg total) into a venous catheter 2 (two) times a day for 2 doses. 5 mL 04/07/20 25 025 Discontin ued(Stop Taking at Discharge ) LORazepam (ATIVAN) 2 mg/mL injection Infuse 1 mL (2 mg total) into a venous catheter every 4 (four) hours if needed for seizures. Max Daily Amount: 12 mg 04/07/20 25 025 Discontin ued(Stop Taking at Discharge ) nystatin (MYCOSTATIN) 100,000 unit/mL suspension Swish and swallow 5 mL (500,000 Units total) 4 (four) times a day for 8 doses. 04/07/20 25 025 Discontin ued(Stop Taking at Discharge ) lacosamide (VIMPAT) injection Infuse 5 mL (50 mg total) into a venous catheter every 12 (twelve) hours. Max Daily Amount: 100 mg 04/07/20 25 025 Discontin ued(Stop Taking at Discharge ) sodium chloride 0.9 % infusion Infuse 75 mL/hr into a venous catheter continuously. 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) 11/03/19 08 Overview (05/24/2024): Offered growth hormone 10/29 Hepatitis 03/23/2007 Overview (05/24/2024): mild, assoc's with transient elevation of ammonia, while on depakote, detected during hospitalization [address] cheung, possible liver bx 03/30 - mild changes, non-specific - monitor q 6 mos [address] enzymes [address] cheung IMPamella update Allergic rhinitis 06/19/2006 Overview (05/24/2024): +RAST dust mites 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): , secondary to pathologic fractures, neurofibromatosis Malignant neoplasm of brain ([facility] V24, [facility]/ C V28) 06/19/2006 Overview (05/24/2024): followed by dr zamora and oncology yearly PDD (pervasive developmental disorder) 6 Hypothyroidism 06/19/2006 Overview (05/24/2024): on synthroid Hypopituitarism ([facility] V24) 06/19/2006 Overview (05/24/2024): delayed puberty, followed by dr weinstein, on estrogen patch and provera cycling Consult [employer]- Dr Nieves 04/01, pelvic ultrasound and 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 She agreed. Intractable epilepsy (CMS/HCC V24, CMS/HCC V28) 05/04/2006 Overview (05/24/2024): Previously followed by dr malagon, at transfer to Dr Watts was on Dilantin and Phenobarb, care transferred to dr fareed watts 12/28 (Adult Nerurology at [facility]), switch to dr trevino 05/01, dr elizondo 09/02 previously on depakote, d/c'd during hospitalization 10/28 and switched to dilantin, d/c'd 03/31 due to lethargy and vomiting vagal nerve stimulator placed 01/27, dr conti Phenobarb tapered and Lamictal started 07/30 As of admission 02/28 : Depakote XR 1000 mg q AM, Trileptal 600 bid Admission 05/01 Clonazepam added 0.25 mg bid, d/c'd due to sedation IMO update IMO Update Fall 2015 Mild intellectual disability 05/04/2006 Overview (05/24/2024): see neuropsych eval 07/30 Neurofibromatosis ([facility] V24, [facility] V28) 06/2006 Encounters Date Type Department Care Team Description 04/21/2025 11:29 AM EDT - 04/21/2025 1:43 PM EDT Emergency [facility] Emergency [address] [place] [id number] Aphthous ulcer (Primary Dx) Discharge Disposition: Home or Self Care 04/20/2025 Telephone Adult Medicine [address] [phone] Selene Dorsey ND 04/17/2025 1:30 PM EDT Office Visit Adult Medicine [address] [phone] Sid Jo MD Recurrent seizures ([facility] V24, [facility] V28) (Primary Dx); Anemia, unspecified type; Gastroesophageal reflux disease, unspecified whether esophagitis present 04/11/2025 Telephone Adult Medicine [address] [phone] Selene Dorsey ND 04/07/2025 6:44 PM EDT - 04/11/2025 2:12 PM EDT Hospital Encounter [facility] [address] [place] [phone] Hemalatha Cardoso MD Hewan, MD Krishan Sanchez Gagandeep, MD Udit, Chitreaka, MD Seizure ([facility] V24, [facility] V28) (Primary Dx) Discharge Disposition: Home or Self Care 04/04/2025 9:58 AM EDT - 04/07/2025 5:46 PM EDT Hospital Encounter [facility] [address] [place] [phone] Wendie Cooper MD Bukalo, Nermina, MD Nasser, Nada S, MD Status epilepticus ([facility] V24, [facility] V28) (Primary Dx); Seizure secondary to subtherapeutic anticonvulsant medication (CMS/HCC V24, CMS/HCC V28); Hyponatremia; Recurrent seizures ([facility]/HCC V24, [facility] V28) Discharge Disposition: [facility] 02/10/2025 8:00 AM EDT Office Visit Gastroenterology - [place] [address] [facility] [address] [facility] [address] [place] [phone] Ileana Theodore NP Gastroesophageal reflux disease without esophagitis (Primary Dx); Elevated liver enzymes; Encounter for screening for other viral diseases; Other problems related to lifestyle 02/01/2025 3:30 PM EDT Ancillary Procedure [facility] [address] [place] [phone] Aortitis ([facility] V24); Other chest pain from Last 3 Months Immunizations Name Administration Dates Next Due COVID-19 (Pfizer/Comirnaty) 12yo and older 06/24/2024 DTP 01/27/1990,1988 DTaP (Infanrix) 6wks to less than 7yo 07/10/1993 [id number]-[id number]-[id number] (Pentacel) 2mo to less than 5yo 01/27/1990 Diptheria & Tetanus, 6wks to less than 7yo 09/25/1989,1988 H1N1 Inj Preservative Free 06/22/2009 Hepatitis B Pediatric (Enger ix B; Recombivax HB) to less than 20 yo 04/20/2001,01/12/2001,12/10/2000 Hib (HbOC) 01/27/1990 Influenza Quadravalent, MDCK , 0.5ml, preservative free (Flucelvax) 6mo and older 07/23/2023,06/24/2022,06/19/2021,07/05,06/10/2019 Influenza Quadravalent, MDCK , 0.5ml, with preservative (Flucelvax) 6mo and older 07/04/2018,05/18/2017 Influenza trivalent, 0.5mL ( Fluzone High-dose) 65yo and older 08/20/2018 Influenza trivalent, 0.5mL, preservative free (Fluarix; FluLaval; Fluzone) ages 6mo and older (Afluria) 3 years and older 06/18/2024 Influenza trivalent, with pr eservative (Fluzone; Afluria) 6mo and older 06/26/2016,05/23/2015,06/09/2014,05/30,07/30/2011,06/27/2010,06/21/2008 ,06/23/2007,07/21/2006,05/20/2005 MMR, measles mumps and rubel la Live (Priorix; M-M-R II) 12mo and older 06/19/1999,10/08/1989 Meningococcal MCV4P 06/19/2006 OPV 07/10/1993, 0,1988,09/19 [employer] SARS-CoV-2 COVID-19, mRNA, LNP-S, preservative free 08/22/2021,01/23/2021 Td Tetanus diptheria (Tdvax) 7yo and older 11/19/2017,12/10/2000 Tdap Tetanus diptheria acell ular pertussis (Boostrix; Adacel) 7yo and older 03/18/2011,06/23/2007 Varicella live (Varivax) 12m o and older 1989 Surgical History Surgery Date Site/Laterality Comments OTHER SURGICAL HISTORY 1994 PROCEDURE: HISTORICAL BELOW KNEE AMP; COMMENT: secondary to to pathological fracture OTHER SURGICAL HISTORY 2005 PROCEDURE: [place] INJECTION AA&/STRD VAGUS NERVE; COMMENT: vagus nerve stimulator, again in 2019 ESOPHAGOGASTRODUODENOSCOPY 05/21/2021 PROCEDURE: FL EGD TRANSORAL BIOPSY SINGLE/MULTIPLE; COMMENT: Grade C esophagitis and hiatal hernia. recommend taking omeprazole in am before breakfast and NO food or drink 2 hours before bed Medical History Medical History Date Comments Neurofibromatosis, 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) 05/04/2006 DX:Neurofibromatosis, 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) Mild intellectual disabilities 05/04/2006 D X:Mild intellectual disabilities; COMMENT: see neuropsych eval 03/29 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, not elsewhere classified 06/19/2006 DX:Delay in sexual developme nt and puberty, not elsewhere classified; COMMENT: delayed puberty, followed by dr weinstein, on estrogen patch and provera cycling Congenital transverse defici ency of lower limb 06/19/2006 DX:Congenital transverse deficiency of lower limb; COMMENT: , secondary to pathologic fractures, neurofibromatosis Malignant neoplasm of brain, unspecified site 06/19/2006 DX:Malignant neoplasm of bra in, unspecified site; COMMENT: followed by dr zamora and oncology Unspecified otitis media 1992x3, 1993x2, DX :Unspecified otitis media Wheezing , DX:Wheezing Depressive disorder, not elsewhere classified 06/19/2006 DX:Depressive disorder, not elsewhere classified; COMMENT: inpatient admission Julio Cesar 09/29, on Prozac and Respirdal Other specified pervasive developmental disorders, current or active state 06/19/2006 DX:Other specified pervasive developmental disorders, current or active state Esotropia, unspecified DX:Esotro keri, unspecified Allergic rhinitis, cause unspecified 06/19/2006 DX:Allergic rhinitis, cause unspecified; COMMENT: +RAST dust mites Unspecified hypothyroidism 06/19/2006 DX:Un specified hypothyroidism; COMMENT: on synthroid Adverse drug effect 10/28 DX:Adverse d rug effect; COMMENT: valproic acid - hyponatremia and thrombocytopenia, PICU stay Unspecified epilepsy with intractable epilepsy 05/04/2006 DX:Unspecified epilepsy with intractable epilepsy; COMMENT: followed by dr malagon, currently on Depakote and Phenobarb vagal nerve stimulator placed 01/27, dr conti Pneumonia, organism unspecified(486) DX:Pneumonia, organism unspecified(486); COMMENT: aspiration Influenza DX:Influenza; CO MMENT: 06/01 admitted Anemia DX:Anemia CVA (cerebral vascular accid ent) ([facility] V24, [facility] V28) Hypothyroid Hypopituitarism ([facility] V24) ACTH deficiency ([facility] V24) GERD (gastroesophageal reflu x disease) Hyperlipidemia Legally blind Hearing loss Growth hormone deficiency ([facility] V24) Hyponatremia Family History Medical History Relation Name Comments Drug abuse Brother 1 +heroin Prostate cancer Father HTN Other: calciphylaxis Maternal Grandfather Heart attack Maternal Grandmother diabete s, COPD, HTN Hypertension Mother osteoporosis Heart attack Paternal Grandfather Breast cancer Neg Hx Colon cancer Neg Hx Ovarian cancer Neg Hx Uterine cancer Neg Hx Relation Name Status Comments Brother 1 Alive Yves Stanislaw Brother 2 Alive Rosales Trujillod 01/16 Father Alive Kamari Stanislaw Maternal Grandfather Maternal Grandmother Alive Mother Alive Lynne Alegre 06/25 Paternal Grandfather Paternal Grandmother Social History Tobacco Use Types Packs/Day Years Used Date Smoking Tobacco: Never Smokeless Tobacco: Never Tobacco Cessation:Counseling Given: Not Answered Alcohol Use Standard Drinks/Week Comments No 0 [...] ed Within the last 3 months, ho cliff many times did you visit the emergency [...] for your loved ones. For example, child welfare specialist or elderly care for an older adult? [...] on file Sexual Orientation Not on file Obstetrics History Last Filed Vital Signs Vital Sign Reading [...] Mass Index 30.04 04/21/2025 11:48 AM EDT Plan of Treatment Upcoming Encounters Date Type Department Care Team (Late st Contact Info) Description 05/19/2025 9:00 AM EDT Office Visit Adult Medicine [address] [place] [phone] Sid Jo MD [address] [place], [place] 07/03/2025 9:00 AM EST Office Visit Endocrinology [address] [phone] Pushpa Lebron MD [address] [place] [phone] Health Maintenance Due Date Last Done Comments Pneumococcal Vaccine: Pediatrics (0 to 5 Years) and At-Risk Patients (6 to 49 Years) (1 of 2 - PCV) 2007 Cervical Cancer Screening: Pap Smear 2009 HIV Screening 08/02/2022 Medicare Annual Wellness Visit 08/02/2022 Depression Screening 08/24/2024 05/11/2024 COVID-19 Vaccine (5 - Pfizer risk 2023- season) 2024 06/24/2024, 08/22/2021, 01/23/2021, Additional history exists Influenza Vaccine (#1) 2025 , 07/23/2023, 06/24/2022, Additional history exists Social Influencers of Health Screening 04/12/2026 04/12/2025 DTaP,Tdap,and Td Vaccines (10 - Td or Tdap) 11/20/2027 11/19/2017, 03/18/2011, 06/23/2007, Additional history exists Cholesterol Screening (Lipid Panel) 05/12/2029 05/12/2024, 05/12/2024 Varicella Vaccines Aged Out 1989 No longer eligible based on patient's age to complete this topic HIB Vaccines Completed 01/27/1990, 01/27/1990 IPV Vaccines Completed 07/10/1993, 01/1990, 01/27/1990, Additional history exists MMR Vaccines Completed 06/19/1999, 10/08/1989 Hepatitis B Vaccines Completed 04/20/2001, 01/12/2001, 12/10/2000 Meningococcal ACWY Vaccine Completed 06/19/2006 Hepatitis C Screening Completed 02/27/2025 HPV Vaccines Aged Out No longer eligi ble based on patient's age to complete this topic Hepatitis A Vaccines Aged Out No long er eligible based on patient's age to complete this topic Meningococcal B Vaccine Aged Out No l onger eligible based on patient's age to complete this topic RSV Immunization Patients Under 20 months Aged Out No longer eligible based on patient's age to complete this topic Procedures Procedure Name Priority Date/Time Associated Diagnosis Comments COMPREHENSIVE METABOLIC PANEL Routine 04/11/2025 10:32 AM EDT MAGNESIUM Routine 04/11/2025 10:32 AM EDT POCT GLUCOSE BLOOD Routine 04/11/2025 8: 23 AM EDT CONTINUOUS EEG Routine 04/11/2025 7:05 AM EDT POCT GLUCOSE BLOOD Routine 04/11/2025 12 :06 AM EDT POCT GLUCOSE BLOOD Routine 04/10/2025 6: 50 PM EDT CONTINUOUS EEG Routine 04/10/2025 6:07 AM EDT POCT GLUCOSE BLOOD Routine 04/10/2025 12 :06 AM EDT CONTINUOUS EEG Routine 04/09/2025 10:29 AM EDT COMPREHENSIVE METABOLIC PANEL Routine 04/09/2025 10:05 AM EDT CONTINUOUS EEG Routine 04/09/2025 6:04 AM EDT POCT GLUCOSE BLOOD Routine 04/09/2025 12 :15 AM EDT POCT GLUCOSE BLOOD Routine 04/08/2025 11 :58 AM EDT THYROXINE FREE Add-On 04/08/2025 8:14 AM EDT COMPREHENSIVE METABOLIC PANEL Routine 04/08/2025 8:14 AM EDT CBC WITH AUTO DIFFERENTIAL Routine 04/08/2025 8:14 AM EDT MAGNESIUM Routine 04/08/2025 8:14 AM EDT THYROID STIMULATING HORMONE Routine 04/08/2025 8:14 AM EDT OXCARBAZEPINE LEVEL Timed 04/08/2025 8 :14 AM EDT LEVETIRACETAM LEVEL Timed 04/08/2025 8 :14 AM EDT CBC AND DIFFERENTIAL Routine 04/08/2025 8:14 AM EDT POCT GLUCOSE BLOOD Routine 04/08/2025 12 :18 AM EDT ECG ANNOTATED 04/08/2025 POCT GLUCOSE BLOOD Routine 04/07/2025 1: 59 PM EDT POCT GLUCOSE BLOOD Routine 04/07/2025 6: 00 AM EDT POCT GLUCOSE BLOOD Routine 04/07/2025 12 :02 AM EDT POCT GLUCOSE BLOOD Routine 04/06/2025 6: [address] HEAD WO CONTRAST STAT 04/06/2025 1 :19 PM EDT POCT GLUCOSE BLOOD Routine 04/06/2025 12 :58 PM EDT POCT GLUCOSE BLOOD Routine 04/06/2025 6: 34 AM EDT CBC WITH AUTO DIFFERENTIAL Routine 04/06/2025 5:25 AM EDT COMPREHENSIVE METABOLIC PANEL Routine 04/06/2025 5:25 AM EDT MAGNESIUM Routine 04/06/2025 5:25 AM EDT PHOSPHORUS Routine 04/06/2025 5:25 AM EDT CBC AND DIFFERENTIAL Routine 04/06/2025 5:25 AM EDT POCT GLUCOSE BLOOD Routine 04/06/2025 12 :11 AM EDT POCT GLUCOSE BLOOD Routine 04/05/2025 8: 12 PM EDT POCT GLUCOSE BLOOD Routine 04/05/2025 12 :[address] CHEST WO CONTRAST STAT 04/05/2025 9:41 AM EDT POCT GLUCOSE BLOOD Routine 04/05/2025 7: 58 AM EDT POCT GLUCOSE BLOOD Routine 04/05/2025 5: 47 AM EDT OSMOLALITY STAT Add-on 04/05/2025 5:20 AM EDT PHOSPHORUS Add-On 04/05/2025 5:20 AM EDT CREATINE KINASE Add-On 04/05/2025 5:20 AM EDT COMPLETE BLOOD COUNT Routine 04/05/2025 5:20 AM EDT BASIC METABOLIC PANEL Routine 04/05/2025 5:20 AM EDT POCT GLUCOSE BLOOD Routine 04/05/2025 2: 21 AM EDT POCT GLUCOSE BLOOD Routine 04/05/2025 12 :19 AM EDT OXCARBAZEPINE LEVEL Timed 04/04/2025 6 :44 PM EDT LACTATE, WITH REFLEX STAT 04/04/2025 6:44 PM EDT LAMOTRIGINE LEVEL Timed 04/04/2025 6:4 4 PM EDT [id number], RSV, FLU A AND B QUALITATIVE RT-PCR, INTERNAL LAB STAT 04/04/2025 1:28 PM EDT ECG 12-LEAD STAT 04/04/2025 11:02 AM EDT POCT GLUCOSE BLOOD Routine 04/04/2025 10 :48 AM EDT HCG, SERUM, QUALITATIVE STAT Add-on 04/04/20 25 10:40 AM EDT CARBAMAZEPINE LEVEL, TOTAL STAT Add-on 04/04/2025 10:40 AM EDT CBC WITH AUTO DIFFERENTIAL STAT 04/04/2025 10:40 AM EDT PROLACTIN STAT 04/04/2025 10:40 AM EDT MAGNESIUM STAT 04/04/2025 10:40 AM EDT BASIC METABOLIC PANEL STAT 04/04/2025 10:40 AM EDT CBC AND DIFFERENTIAL STAT 04/04/2025 10:40 AM EDT FL CRITICAL CARE 30-74 MINUTES Routine 04/04/2025 9:57 AM EDT HEPATIC FUNCTION PANEL Routine 8:54 AM EDT Transaminitis HEPATITIS A ANTIBODY TOTAL WITH REFLEX IGM Routine 02/27/2025 8:54 AM EDT Elevated liver enzymes [id number] Routine 02/27/2025 8 :54 AM EDT Elevated liver enzymes ANTIMITOCHONDRIAL ANTIBODY Routine 02/27/2025 8:54 AM EDT Elevated liver enzymes [id number] IFA WITH TITER AND PATTERN Routine 02/27/2025 8:54 AM EDT Elevated liver enzymes SMOOTH MUSCLE ANTIBODY IGG Routine 02/27/2025 8:54 AM EDT Elevated liver enzymes CERULOPLASMIN Routine 02/27/2025 8:54 AM EDT Elevated liver enzymes HEPATITIS B SCREENING PANEL Routine 02/27/2025 8:54 AM EDT Elevated liver enzymes Encounter for screening for other viral diseases Other problems related to lifestyle HEPATITIS C ANTIBODY Routine 02/27/2025 8:54 AM EDT Elevated liver enzymes TRANSTHORACIC ECHOCARDIOGRAM (TTE) COMPLETE Routine 02/01/2025 3:51 PM EDT Aortitis (CMS/HCC V24) Other chest pain LIPID PANEL Routine 05/12/2024 HM DEPRESSION SCREENING Routine 05/11/2024 from Last 3 Months or Most Recently Relevant to Health Maintenance Results * Magnesium (04/11/2025 10:32 AM EDT) Only the most recent of4 resultswithin the time period is included. Magnesium 2.0 1.7 - 2.8 mg/dL LAB CHEMISTRY METHOD 04/11/2025 11:[address] [facility] Blood Venous blood specimen / Unknown Venipuncture / Unknown 04/11/2025 10:32 AM EDT 04/11/2025 10:40 AM EDT us Reggie Nickerson MD LAB BLOOD ORDERABLES Final Re sult [facility] [address] [place] [address], [place] [phone] * (ABNORMAL) Comprehensive metabolic panel (04/11/2025 10:32 AM EDT) Only the most recent of4 resultswithin the time period is included. Sodium 132(L) 135 - 145 mmol/L LAB CHEMISTRY METHOD 04/11/2025 11:14 AM [facility] Potassium 3.6 3.5 - 5.1 mmol/L LAB CHEMISTRY METHOD 04/11/2025 11:[address] [facility] Chloride 98 98 - 107 mmol/L LAB [facility] CO2 23(L) 24 - 32 mmol/L LAB CHEMISTRY METHOD [facility]/11[facility]25 [facility] Anion Gap 11 5 - 14 LAB CHEMISTRY METHOD 04/11/2025 11:14 AM [facility] Glucose 96 70 - 199 mg/dL LAB CHEMISTRY METHOD 04/11/2025 11:14 AM [facility] BUN 12 7 - 17 mg/dL LAB CHEMISTRY METHOD 04/11/2025 11:14 AM [facility] Creatinine 0.50 0.50 - 1.00 mg/dL LAB CHEMISTRY METHOD 04/11/2025 11:14 AM [facility] eGFR 125 >=60 mL/min/1. 73m2 LAB CHEMISTRY METHOD 04/11/2025 11:[address] [facility] Comment:Calculation based on the Chronic Kidney Disease Epidemiology Collaboration (CKD-EPI) equation refit without adjustment for race. BUN/Creatinine Ratio 24.0(H) 12.0 - 20.0 LAB CHEMISTRY METHOD 04/11/2025 11:[address] [facility] Calcium 8.9 8.4 - 10.2 mg/dL LAB CHEMISTRY METHOD 04/11/2025 11:14 AM [facility] AST (SGOT) 12 5 - 40 unit/L LAB CHEMISTRY METHOD 04/11/2025 11:14 AM [facility] ALT (SGPT) 12 7 - 52 unit/L LAB CHEMISTRY METHOD 04/11/2025 11:[address] [facility] Alkaline Phosphatase 66 34 - 104 unit/L LAB CHEMISTRY METHOD 04/11/2025 11:[address] [facility] Total Protein 6.8 6.4 - 8.5 g/dL LAB CHEMISTRY METHOD 04/11/2025 11:[address] [facility] Albumin 3.7 3.5 - 5.0 g/dL LAB CHEMISTRY METHOD 04/11/2025 11:[address] [facility] Total Bilirubin 0.5 0.3 - 1.0 mg/dL LAB CHEMISTRY METHOD 04/11/2025 11:[address] [facility] Blood Venous blood specimen / Unknown Venipuncture / Unknown 04/11/2025 10:32 AM EDT 04/11/2025 10:40 AM EDT us Leatha Aviles MD LAB BLOOD ORDERABLES Final Result [facility] [address] [place] [address], [place] [phone] * POCT Glucose, blood (04/11/2025 8:23 AM EDT) Only the most recent of21 resultswithin the time period is included. [facility] Glucose POCT 85 70 - 199 mg/dL 04/11/2025 8:[address] [facility] Comment: Fasting Reference Range: 70-99 mg/dL Non-Fasting Reference Range: 70-199 mg/dL Blood Capillary blood specimen / Unknown 04/11/2025 8:23 AM EDT 04/11/2025 8:24 AM EDT us Reggie Nickerson MD LAB POINT OF CARE TE ST DOCKED DEVICE UNSOLICITED RESULTS Final Result [facility] [address] [place] [address], [place] [phone] * Continuous EEG (04/11/2025 7:05 AM EDT) Narrative [facility] - 04/11/2025 8:21 AM EDT Sterling Dozier MD 04/11/2025 11:07 AM Long-term Monitoring/ Continuous Video Electroencephalography (LTM) Report Study start date, time: ; 7 am Study end date, time: 04/11/2025; 7 am Total duration: 24 hours Clinical Information History: Antoni Manjarrez is a 34 y.o. 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 Sedation: Antiseizure medication: Medications: Current Facility-Administered Medications: aspirin EC tablet 325 mg, 325 mg, oral, Daily, Manda Pineda MD, 325 mg at 04/10/25 08 atorvastatin (LIPITOR) tablet 80 mg, 80 mg, oral, Nightly, Manda Pineda MD, 80 mg at 04/09/25 2142 cloBAZam (ONFI) tablet 10 mg, 10 mg, oral, Nightly, Manda Pineda MD, 10 mg at 04/09/25 214 clonazePAM (KlonoPIN) tablet 0.5 mg, 0.5 mg, oral, TID PRN, Otto Duffy MD amoqpffmqqpvvek-uqeabody-qbizdcvsq-simethicone-lidocaine (MAGIC MOUTHWASH) suspension, 10 mL, Mouth/Throat, 4x daily, Manda Pineda MD, 10 mL at 04/10/25 1704 [START ON 04/11/2025] hydrocortisone (CORTEF) tablet 10 mg, 10 mg, oral, q AM AND hydrocortisone (CORTEF) tablet 5 mg, 5 mg, oral, Nightly, Otto Duffy MD lacosamide (VIMPAT) injection 50 mg, 50 mg, intravenous, q12h, Otto Duffy MD, 50 mg at 04/10/25 08 lamoTRIgine (LaMICtal) tablet 125 mg, 125 mg, oral, BID, Otto Duffy MD, 125 mg at 04/10/25 08 levETIRAcetam (KEPPRA) injection 750 mg, 750 mg, intravenous, BID, Manda Pineda MD, 750 mg at 04/10/25 08 levothyroxine (SYNTHROID, LEVOTHROID) tablet 50 mcg, 50 mcg, oral, Once per day on Thursday, Manda Pineda MD, 50 mcg at 04/10/25 06 LORazepam (ATIVAN) injection 2 mg, 2 mg, intravenous, q4h PRN, Otto Duffy MD nystatin (MYCOSTATIN) 100,000 unit/mL suspension 500,000 Units, 500,000 Units, Swish & Swallow, 4x daily, Otto Duffy MD, 500,000 Units at 04/10/25 170 OXcarbazepine (TRILEPTAL) tablet 150 mg, 150 mg, oral, Daily, Manda Pineda MD, 150 mg at 04/10/25812 OXcarbazepine (TRILEPTAL) tablet 300 mg, 300 mg, oral, Nightly, Manda Pineda MD, 300 mg at 04/09/25 214 pantoprazole (PROTONIX) EC tablet 40 mg, 40 mg, oral, q AM AC, Otto Duffy MD, 40 mg at 04/10/25 170 [Held by provider] sodium chloride tablet 1 g, 1 g, oral, BID, Manda Pineda MD Recording Techniques Instrumentation: A digital EEG was performed using the standard international 10-20 electrode placement and single lead EKG electrode with a sampling rate of 200 samples per second/per channel, at impedance levels less than 10 K Ohms. Montages: Standard 10-20 system montages Type of Study: Long-term video EEG monitoring Conditions of Recording: Awake - drowsy - sleep Results Background Symmetry: Symmetric Predominant background frequency: Theta Superimposed background frequency: Delta, Alpha Voltage - left hemisphere: Normal (most activity 20+ V) Voltage - right hemisphere: Normal (most activity 20+ V) Variability: Yes Reactivity to stimulation: Yes Continuity: Continuous AP Gradient: Present Background details: The background consists of theta/alpha superimposed with delta, no epileptiform discharges or seizures noted. Rhythmic or Periodic Patterns Rhythmic or periodic patterns: Yes Rhythmic or Periodic Patterns Rhythmic or periodic patterns: Yes Pattern Description Pattern # 1 Main term 1: Generalized (G) Frontally predominant Main term 2: Rhythmic delta activity (RETURNER) + Sharp (S) Prevalence: Occasional (1-9%) Duration: Very brief (<10 seconds) Typical frequency (Hz): 1.5 to 2 Hz Classification of EEG findings: 1. Sharp waves. Left temporal - rare 2. Intermittent rhythmic slowing, delta, generalized plus sharp activity (GRDA +S) 3. Background slowing, generalized Impression This is an abnormal continuous video EEG: - Left temporal sharp waves suggestive of area of cortical irritability - Presence of diffuse delta slowing of the background and generalized rhythmic delta with sharp morphology (GRDA + S); these findings are both nonspecific indicators of diffuse neuronal dysfunction. - GRDA +S pose some risk for seizures. - No seizures were seen. Compared to yesterday's EEG: Intermittent burst of GRDA+S seen. No seizures Sterling Hurtado MD Epileptologist/ Staff Neurologist [facility] us Leatha Aviles MD NEUROLOGY ORDERABLES Final Result [facility] * Continuous EEG (04/10/2025 6:07 AM EDT) Narrative [facility] - 04/10/2025 11:20 AM EDT Sterling Dozier MD 04/10/2025 5:28 PM Long-term Monitoring/ Continuous Video Electroencephalography (LTM) Report Study start date, time: 04/09/2025; 7 am Study end date, time: 04/10/2025; 7 am Total duration: 24 hours Clinical Information History: Antoni Manjarrez is a 34 y.o. 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 Sedation: Antiseizure medication: Medications: Current Facility-Administered Medications: aspirin EC tablet 325 mg, 325 mg, oral, Daily, Manda Pineda MD, 325 mg at 04/10/25812 atorvastatin (LIPITOR) tablet 80 mg, 80 mg, oral, Nightly, Manda Pineda MD, 80 mg at 04/09/252141 cloBAZam (ONFI) tablet 10 mg, 10 mg, oral, Nightly, Manda Pineda MD, 10 mg at 04/09/252141 clonazePAM (KlonoPIN) tablet 0.5 mg, 0.5 mg, oral, TID PRN, Otto Duffy MD hrsnfhwepvharxd-hyjxkixo-zclaotvkh-simethicone-lidocaine (MAGIC MOUTHWASH) suspension, 10 mL, Mouth/Throat, 4x daily, Manda Pineda MD, 10 mL at 04/10/25 1704 [START ON 04/11/2025] hydrocortisone (CORTEF) tablet 10 mg, 10 mg, oral, q AM AND hydrocortisone (CORTEF) tablet 5 mg, 5 mg, oral, Nightly, Otto Duffy MD lacosamide (VIMPAT) injection 50 mg, 50 mg, intravenous, q12h, Otto Duffy MD, 50 mg at 04/10/25 0812 lamoTRIgine (LaMICtal) tablet 125 mg, 125 mg, oral, BID, Otto Duffy MD, 125 mg at 04/10/25 08 levETIRAcetam (KEPPRA) injection 750 mg, 750 mg, intravenous, BID, Manda Pineda MD, 750 mg at 04/10/25 08 levothyroxine (SYNTHROID, LEVOTHROID) tablet 50 mcg, 50 mcg, oral, Once per day on Thursday, Manda Pineda MD, 50 mcg at 04/10/25 0625 LORazepam (ATIVAN) injection 2 mg, 2 mg, intravenous, q4h PRN, Otto Duffy MD nystatin (MYCOSTATIN) 100,000 unit/mL suspension 500,000 Units, 500,000 Units, Swish & Swallow, 4x daily, Otto Duffy MD, 500,000 Units at 04/10/25 1704 OXcarbazepine (TRILEPTAL) tablet 150 mg, 150 mg, oral, Daily, Manda Pineda MD, 150 mg at 04/10/25 0813 OXcarbazepine (TRILEPTAL) tablet 300 mg, 300 mg, oral, Nightly, Manda Pineda MD, 300 mg at 04/09/25 2141 pantoprazole (PROTONIX) EC tablet 40 mg, 40 mg, oral, q AM AC, Otto Duffy MD, 40 mg at 04/10/25 1704 [Held by provider] sodium chloride tablet 1 g, 1 g, oral, BID, Manda Pineda MD Recording Techniques Instrumentation: A digital EEG was performed using the standard international 10-20 electrode placement and single lead EKG electrode with a sampling rate of 200 samples per second/per channel, at impedance levels less than 10 K Ohms. Montages: Standard 10-20 system montages Type of Study: Long-term video EEG monitoring Conditions of Recording: Awake - drowsy - sleep Results Background Symmetry: Symmetric Predominant background frequency: Theta Superimposed background frequency: Delta, Alpha Voltage - left hemisphere: Normal (most activity 20+ V) Voltage - right hemisphere: Normal (most activity 20+ V) Variability: Yes Reactivity to stimulation: Yes Continuity: Continuous AP Gradient: Present Background details: The background consists of theta/alpha superimposed with delta, no epileptiform discharges or seizures noted. Rhythmic or Periodic Patterns Rhythmic or periodic patterns: Yes Rhythmic or Periodic Patterns Rhythmic or periodic patterns: Yes Pattern Description Pattern # 1 Main term 1: Generalized (G) Frontally predominant Main term 2: Rhythmic delta activity (RETURNER) + Sharp (S) Prevalence: Occasional (1-9%) Duration: Very brief (<10 seconds) Typical frequency (Hz): 1.5 to 2 Hz Classification of EEG findings: 1. Sharp waves. Left temporal - rare 2. Intermittent rhythmic slowing, delta, generalized plus sharp activity (GRDA +S) 3. Background slowing, generalized Impression This is an abnormal continuous video EEG: - Left temporal sharp waves suggestive of area of cortical irritability - Presence of diffuse delta slowing of the background and generalized rhythmic delta with sharp morphology (GRDA + S); these findings are both nonspecific indicators of diffuse neuronal dysfunction. - GRDA +S pose some risk for seizures. - No seizures were seen. Compared to yesterday's EEG: Unchanged record. Left temporal sharp waves seen occasionally. EEG background indicative of moderate encephalopathy Sterling Hurtado MD Epileptologist/ Staff Neurologist [facility] us Leatha Aviles MD NEUROLOGY ORDERABLES Final Result [facility] * Continuous EEG (04/09/2025 10:29 AM EDT) Narrative [facility] - 04/09/2025 10:29 AM EDT Sterling Dozier MD 04/09/2025 10:40 AM Long-term Monitoring/ Continuous Video Electroencephalography (LTM) Report Study start date, time: 04/08/2025; 10:21 am Study end date, time: 04/09/2025; 7 am Total duration: 20 hours and 40 mins Clinical Information History: Antoni Manjarrez is a 34 y.o. 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 Sedation: Antiseizure medication: Medications: Current Facility-Administered Medications: aspirin EC tablet 325 mg, 325 mg, oral, Daily, Manda Pineda MD, 325 mg at 04/09/25 100 atorvastatin (LIPITOR) tablet 80 mg, 80 mg, oral, Nightly, Manda Pineda MD, 80 mg at 04/08/251943 cloBAZam (ONFI) tablet 10 mg, 10 mg, oral, Nightly, Manda Pineda MD, 10 mg at 04/08/251943 ehejujffaizcgot-cwndynmr-bqcxuusvs-simethicone-lidocaine (MAGIC MOUTHWASH) suspension, 10 mL, Mouth/Throat, 4x daily, Manda Pineda MD, 10 mL at 04/09/25 1004 hydrocortisone sod succinate injection 50 mg, 50 mg, intravenous, q6h, Manda Pineda MD, 50 mg at 04/09/25 1009 lamoTRIgine (LaMICtal) tablet 100 mg, 100 mg, oral, BID, Manda Pineda MD, 100 mg at 04/09/25 1003 lamoTRIgine (LaMICtal) tablet 25 mg, 25 mg, oral, BID, Manda Pineda MD, 25 mg at 04/09/25 1003 levETIRAcetam (KEPPRA) injection 750 mg, 750 mg, intravenous, BID, Manda Pineda MD, 750 mg at 04/09/25 0957 levothyroxine (SYNTHROID, LEVOTHROID) tablet 50 mcg, 50 mcg, oral, Once per day on Thursday, Manda Pineda MD, 50 mcg at 04/08/25 0631 LORazepam (ATIVAN) injection 2 mg, 2 mg, intravenous, q4h PRN, Manda Pineda MD nystatin (MYCOSTATIN) 100,000 unit/mL suspension 500,000 Units, 500,000 Units, Swish & Swallow, 4x daily, Manda Pineda MD, 500,000 Units at 04/09/25 100 OXcarbazepine (TRILEPTAL) tablet 150 mg, 150 mg, oral, Daily, Manda Pineda MD, 150 mg at 04/09/25 100 OXcarbazepine (TRILEPTAL) tablet 300 mg, 300 mg, oral, Nightly, Manda Pineda MD, 300 mg at 04/08/25 194 [Held by provider] sodium chloride tablet 1 g, 1 g, oral, BID, Manda Pineda MD Recording Techniques Instrumentation: A digital EEG was performed using the standard international 10-20 electrode placement and single lead EKG electrode with a sampling rate of 200 samples per second/per channel, at impedance levels less than 10 K Ohms. Montages: Standard 10-20 system montages Type of Study: Long-term video EEG monitoring Conditions of Recording: Awake - drowsy - sleep Results Background Symmetry: Symmetric Predominant background frequency: Theta Superimposed background frequency: Delta, Alpha Voltage - left hemisphere: Normal (most activity 20+ V) Voltage - right hemisphere: Normal (most activity 20+ V) Variability: Yes Reactivity to stimulation: Yes Continuity: Continuous AP Gradient: Present Background details: The background consists of theta/alpha superimposed with delta, no epileptiform discharges or seizures noted. Rhythmic or Periodic Patterns Rhythmic or periodic patterns: Yes Rhythmic or Periodic Patterns Rhythmic or periodic patterns: Yes Pattern Description Pattern # 1 Main term 1: Generalized (G) Frontally predominant Main term 2: Rhythmic delta activity (RETURNER) + Sharp (S) Prevalence: Occasional (1-9%) Duration: Very brief (<10 seconds) Typical frequency (Hz): 1.5 to 2 Hz Classification of EEG findings: 1. Sharp waves. Left temporal - rare 2. Intermittent rhythmic slowing, delta, generalized plus sharp activity (GRDA +S) 3. Background slowing, generalized Impression This is an abnormal continuous video EEG: - Left temporal sharp waves suggestive of area of cortical irritability - Presence of diffuse delta slowing of the background and generalized rhythmic delta with sharp morphology (GRDA + S); these findings are both nonspecific indicators of diffuse neuronal dysfunction. - GRDA +S pose some risk for seizures. - No seizures were seen. Sterling Hurtado MD Epileptologist/ Staff Neurologist [facility] us Leatha Aviles MD NEUROLOGY ORDERABLES Final Result [facility] * Continuous EEG (04/09/2025 6:04 AM EDT) Narrative [facility] - 04/08/2025 8:48 AM EDT Sterling Dozier MD 04/08/2025 8:48 AM Continuous Electroencephalography (EEG) Report Recording Information: Start Time: Apr 07, 2025 22:01 PM End Time: Apr 08, 2025 00:07 AM Duration: 02:06:39 (127 minutes) Recording Techniques Description of procedure: This is a Rapid EEG acquired with a digital [employer] EEG machine with 10 lead, 8 channel system positioned circumferentially, spaced according to the lateral chains of the 10-20 international system of EEG electrode placements. Vertex and paracentral recording electrodes are not included. The entire segments of the EEG were scanned by the attending physician. The [employer] System used the Clarity algorithm to analyze brain activity and detect seizures/status epilepticus to support reading of the EEG. Performed with [place], [employer] Status Epilepticus Monitor, [facility] ICD-10 PCS Code = [id number] Video recorded: No Clinical Information History: Antoni Manjarrez is a 34 y.o. 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 Pertinent Medications and Treatments Anti-seizure medications: Sedatives: Medications: Current Facility-Administered Medications: aspirin EC tablet 325 mg, 325 mg, oral, Daily, Manda Pineda MD, 325 mg at 04/08/25 0834 atorvastatin (LIPITOR) tablet 80 mg, 80 mg, oral, Nightly, Manda Pineda MD, 80 mg at 04/07/25 2133 cloBAZam (ONFI) tablet 10 mg, 10 mg, oral, Nightly, Manda Pineda MD, 10 mg at 04/07/25 2133 czabtrhxuytzcsu-jzwphzbm-ipfhshnie-simethicone-lidocaine (MAGIC MOUTHWASH) suspension, 10 mL, Mouth/Throat, 4x daily, Manda Pineda MD hydrocortisone sod succinate injection 50 mg, 50 mg, intravenous, q6h, Manda Pineda MD, 50 mg at 04/08/25 0830 lacosamide (VIMPAT) injection 50 mg, 50 mg, intravenous, q12h, Manda Pineda MD, 50 mg at 04/08/25 0826 lamoTRIgine (LaMICtal) tablet 100 mg, 100 mg, oral, BID, Manda Pineda MD, 100 mg at 04/08/25 0835 lamoTRIgine (LaMICtal) tablet 25 mg, 25 mg, oral, BID, Manda Pineda MD, 25 mg at 04/08/25 0835 levETIRAcetam (KEPPRA) injection 750 mg, 750 mg, intravenous, BID, Manda Pineda MD, 750 mg at 04/08/25 0828 levothyroxine (SYNTHROID, LEVOTHROID) tablet 50 mcg, 50 mcg, oral, Once per day on Thursday, Manda Pineda MD, 50 mcg at 04/08/25 0631 LORazepam (ATIVAN) injection 2 mg, 2 mg, intravenous, q4h PRN, Manda Pineda MD nystatin (MYCOSTATIN) 100,000 unit/mL suspension 500,000 Units, 500,000 Units, Swish & Swallow, 4x daily, Manda Pineda MD, 500,000 Units at 04/08/25 0835 OXcarbazepine (TRILEPTAL) tablet 150 mg, 150 mg, oral, Daily, Manda Pineda MD, 150 mg at 04/08/25 0836 OXcarbazepine (TRILEPTAL) tablet 300 mg, 300 mg, oral, Nightly, Manda Pineda MD sodium chloride 0.9 % infusion, 75 mL/hr, intravenous, Continuous, Manda Pineda MD, Last Rate: 75 mL/hr at 04/08/25 06, 75 mL/hr at 04/08/25630 [Held by provider] sodium chloride tablet 1 g, 1 g, oral, BID, Manda Pineda MD Findings Results Background Symmetry: Symmetric Predominant background frequency: Theta Superimposed background frequency: Delta, Alpha Voltage - left hemisphere: Normal (most activity 20+ V) Voltage - right hemisphere: Normal (most activity 20+ V) Variability: Yes Reactivity to stimulation: Yes Continuity: Continuous AP Gradient: Present Background details: The background consists of theta/alpha superimposed with delta, no epileptiform discharges or seizures noted. Rhythmic or Periodic Patterns Rhythmic or periodic patterns: Yes Rhythmic or Periodic Patterns Rhythmic or periodic patterns: Yes Pattern Description Pattern # 1 Main term 1: Generalized (G) Frontally predominant Main term 2: Rhythmic delta activity (RETURNER) + Sharp (S) Prevalence: Occasional (1-9%) Duration: Very brief (<10 seconds) Typical frequency (Hz): 1.5 to 2 Hz Classification of EEG findings: 1. Intermittent rhythmic slowing, delta, generalized plus sharp activity (GRDA +S) 2. Background slowing, generalized Impression This is an abnormal continuous EEG due to the presence of diffuse delta slowing of the background and generalized rhythmic delta with sharp morphology (GRDA + S); these findings are both nonspecific indicators of diffuse neuronal dysfunction. - GRDA +S pose some risk for seizures. No seizures were seen. Sterling Hurtado MD Epileptologist/ Staff Neurologist [facility] us Leatha Aviles MD NEUROLOGY ORDERABLES Final Result [facility] * (ABNORMAL) CBC auto differential (04/08/2025 8:14 AM EDT) Only the most recent of3 resultswithin the time period is included. WBC 8.3 4.0 - 10.5 K/mcL LAB HEMETOLOGY METHOD 04/08/2025 9:[address] [facility] RBC 4.79 4.20 - 5.40 M/mcL LAB HEMETOLOGY METHOD 04/08/2025 9:[address] [facility] Hemoglobin 14.5 12.5 - 16.0 g/dL LAB HEMETOLOGY METHOD 04/08/2025 9:[address] [facility] Hematocrit 43.9 37.0 - 47.0 % LAB HEMETOLOGY METHOD 04/08/2025 9:[address] [facility] MCV 91.7 78.0 - 100.0 FL LAB HEMETOLOGY METHOD 04/08/2025 9:[address] [facility] MCH 30.4 25.0 - 33.0 pcg LAB HEMETOLOGY METHOD 04/08/2025 9:[address] [facility] MCHC 33.1 32.0 - 36.0 g/dL LAB HEMETOLOGY METHOD 04/08/2025 9:[address] [facility] RDW 13.3 12.1 - 16.2 % LAB HEMETOLOGY METHOD 04/08/2025 9:[address] [facility] Platelets 265 150 - 450 K/mcL LAB HEMETOLOGY METHOD 04/08/2025 9:[address] [facility] MPV 8.5 7.4 - 11.4 FL LAB HEMETOLOGY METHOD 04/08/2025 9:[address] [facility] Neutrophils Relative 84.7(H) 44.0 - 74.0 % LAB HEMETOLOGY METHOD 04/08/2025 9:[address] [facility] Lymphocytes Relative 10.9(L) 20.0 - 48.0 % LAB HEMETOLOGY METHOD 04/08/2025 9:[address] [facility] Monocytes Relative 3.8 2.0 - 12.0 % LAB HEMETOLOGY METHOD 04/08/2025 9:[address] [facility] Eosinophils Relative 0.1 0.0 - 6.0 % LAB HEMETOLOGY METHOD 04/08/2025 9:[address] [facility] Basophils Relative 0.5 0.0 - 2.0 % LAB HEMETOLOGY METHOD 04/08/2025 9:[address] [facility] Neutrophils Absolute 7.00 1.80 - 7.80 K/mcL LAB HEMETOLOGY METHOD 04/08/2025 9:[address] [facility] Lymphocytes Absolute 0.90(L) 1.00 - 3.20 K/mcL LAB HEMETOLOGY METHOD 04/08/2025 9:[address] [facility] Monocytes Absolute 0.30 0.00 - 0.80 K/mcL LAB HEMETOLOGY METHOD 04/08/2025 9:[address] [facility] Eosinophils Absolute 0.00 0.00 - 0.50 K/mcL LAB HEMETOLOGY METHOD 04/08/2025 9:[address] [facility] Basophils Absolute 0.00 0.00 - 0.20 K/mcL LAB HEMETOLOGY METHOD 04/08/2025 9:[address] [facility] Blood Venous blood specimen / Unknown Venipuncture / Unknown 04/08/2025 8:14 AM EDT 04/08/2025 8:57 AM EDT Leatha Aviles MD LAB BLOOD ORDERABLES Final Result Performing Organization Address City/[facility]/ZIP Co de Phone Number [facility] [address] [place] [address], * (ABNORMAL) Oxcarbazepine level (04/08/2025 8:14 AM EDT) Only the most recent of2 resultswithin the time period is included. Oxcarbazepine 4.1(L) 10 - 35 ug/mL 04/12/2025 1:41 PM EDT [facility] Comment: If applicable, any drug confirmation testing reported here was developed and the performance characteristics determined by [facility]. This confirmation testing has not been cleared or approved by the FDA. The laboratory is regulated under CLIA as qualified to perform high-complexity testing. This test is used for patient testing purposes. It should not be regarded as investigational or for research. Test performed at [facility], [address] , [place] [address] Leisa Barragan MD, PhD - Set And Exhibit Designer Blood Venous blood specimen / Unknown Venipuncture / Unknown 04/08/2025 8:14 AM EDT 04/08/2025 8:57 AM EDT us Leatha Aviles MD LAB BLOOD ORDERABLES Final Result [facility] [address] [place] [address] * Levetiracetam level (04/08/2025 8:14 AM EDT) Levetiracetam 12.1 3.0 - 60.0 ug/mL 04/12/2025 6:16 AM EDT [facility] Comment: Steady state trough serum or plasma levels following doses of 1000 to 3000 mg/Day: 3 to 37 ug/mL. The same dosage regimen will typically result in peak levels of 10 to 60 ug/mL, at approximately 1.5 hours post dose. If applicable, any drug confirmation testing reported here was developed and the performance characteristics determined by [facility]. This confirmation testing has not been cleared or approved by the FDA. The laboratory is regulated under CLIA as qualified to perform high-complexity testing. This test is used for patient testing purposes. It should not be regarded as investigational or for research. Test performed at [facility], [address] , [place] [address] Leisa Barragan MD, PhD - Set And Exhibit Designer Blood Venous blood specimen / Unknown Venipuncture / Unknown 04/08/2025 8:14 AM EDT 04/08/2025 8:57 AM EDT Leatha Aviles MD LAB BLOOD ORDERABLES Final Result [facility] [address] [place] [address] * (ABNORMAL) Thyroid stimulating hormone (04/08/2025 8:14 AM EDT) [facility] TSH 0.25(L) 0.45 - 5.33 mcIU/mL LAB CHEMISTRY METHOD 04/08/2025 9:[address] [facility] Blood Venous blood specimen / Unknown Venipuncture / Unknown 04/08/2025 8:14 AM EDT 04/08/2025 8:57 AM EDT Leatha Aviles MD LAB BLOOD ORDERABLES Final Result [facility] [address] [place] [address], [place] [phone] * Thyroxine free (04/08/2025 8:14 AM EDT) Free T4 0.70 0.50 - 1.30 ng/dL LAB CHEMISTRY METHOD 04/10/2025 10:[address] [facility] Blood Venous blood specimen / Unknown Venipuncture / Unknown 04/08/2025 8:14 AM EDT 04/08/2025 8:57 AM EDT Reggie Nickerson MD LAB BLOOD ORDERABLES Final Re sult [facility] [address] [place] [address], [place] [phone] * ECG-Annotated (04/08/2025) us Provider Onbase ECG ORDERABLES Final Result * CT Head wo Contrast (04/06/2025 1:19 PM EDT) Anatomical Region Laterality Modality Head and Neck Computed Tomogra phy 04/06/2025 1:32 PM EDT Impressions 04/06/2025 1:35 PM EDT No evidence of acute intracranial process on noncontrast head CT. Similar atrophic changes as well as bilateral lacunar infarcts. No significant change from the prior study. -------- FINAL REPORT -------- Dictated By: Doni Boucher Dictated Date: 04/06/2025 13:32 ET Assigned Physician: Doni Boucher Reviewed and Electronically Signed By: Doni Boucher Signed Date: 04/06/2025 13:35 ET Workstation ID: [id number] Transcribed By: Self Edit Transcribed Date: 04/06/2025 13:32 ET Narrative 04/06/2025 1:35 PM EDT INDICATION: Headache, classic migraine; breakthrough seizure Technique: Axial images were obtained from the skull base to the vertex without contrast enhancement. Scanner: Daily AislepeBevBucks 64 slice VCT Dose reduction technique: ASIR (Adaptive statistical iterative reconstruction) Dose: total exam DLP 808 mGY per cm Comparison: Compared to multiple prior studies most recent from February 02, 2023. FINDINGS: Intracranial contents: No acute intracranial hemorrhage, midline shift or mass-effect. The ventricles, sulci, sylvian fissures and basilar cisterns are symmetric and mildly enlarged for the patient's age. No abnormal intra or extra- axial fluid collections. Bilateral cortical infarcts suspected within the periventricular white matter on the right side and basal ganglia on the left side. Bilateral basal ganglia calcifications. Bony structures/soft tissues: Within normal limits. Sinuses: Paranasal sinuses are clear. Mastoid air cells are well aerated. Procedure Note Doni Boucher MD - 04/06/2025 INDICATION: Headache, classic migraine; breakthrough seizure Technique: Axial images were obtained from the skull base to the vertexwithout contrast enhancement. Scanner: Daily Aislepe[employer]ucks 64 slice VCT Dose reduction technique: ASIR (Adaptive statistical iterativereconstruction) Dose: total exam DLP 808 mGY per cm Comparison: Compared to multiple prior studies most recent from January. FINDINGS: Intracranial contents: No acute intracranial hemorrhage, midline shift ormass- effect. The ventricles, sulci, sylvian fissures and basilar cisternsare symmetric and mildly enlarged for the patient's age. No abnormal intraor extra-axial fluid collections. Bilateral cortical infarcts suspectedwithin the periventricular white matter on the right side and basalganglia on the left side. Bilateral basal ganglia calcifications. Bony structures/soft tissues: Within normal limits. Sinuses: Paranasal sinuses are clear. Mastoid air cells are wellaerated. IMPRESSION: No evidence of acute intracranial process on noncontrast head CT. Similar atrophic changes as well as bilateral lacunar infarcts. No significant change from the prior study. -------- FINAL REPORT -------- Dictated By: Doni Boucher Dictated Date: 04/06/2025 13:32 ET Assigned Physician: Doni Boucher Reviewed and Electronically Signed By: Doni Boucher Signed Date: 04/06/2025 13:35 ET Workstation ID: [id number] Transcribed By: Self Edit Transcribed Date: 04/06/2025 13:32 ET us Carlie Morales MD IMG CT PROCEDURES Final Result * Phosphorus (04/06/2025 5:25 AM EDT) Only the most recent of2 resultswithin the time period is included. Phosphorus 3.3 2.5 - 4.5 mg/dL LAB CHEMISTRY METHOD 04/06/2025 7:16 AM EDT [facility] Blood Venous blood specimen / Unknown Venipuncture / Unknown 04/06/2025 5:25 AM EDT 04/06/2025 6:15 AM EDT us Carlie Morales MD LAB BLOOD ORDERABLES Final Resu lt [facility] [address] [place] [address], [place] [phone] * CT Chest wo Contrast (04/05/2025 9:41 AM EDT) Anatomical Region Laterality Modality Body Computed Tomogra phy 04/05/2025 9:45 AM EDT Impressions 04/05/2025 9:50 AM EDT Impression: 1. Very limited, low lung volume exam with significant respiratory motion artifact. 2. No large airspace consolidations are seen. 3. Mild left lower lobe bandlike opacity, possibly a small infiltrate or atelectasis. 4. No developing thoracic lymphadenopathy. 5. [place] ([id number]) -------- FINAL REPORT -------- Dictated By: Ludy Duran Dictated Date: 04/05/2025 09:45 ET Assigned Physician: Ludy Durna Reviewed and Electronically Signed By: Ludy Duran Signed Date: 04/05/2025 09:50 ET Workstation ID: [id number] Transcribed By: Self Edit Transcribed Date: 04/05/2025 09:45 ET Narrative 04/05/2025 9:50 AM EDT History: Recurrent aspiration pneumonia. Comparison: 10/15/24 Technique: Helical volumetric imaging of the thorax was performed without IV contrast. DLP: 436.56 mGy/cm SourceNinjaer Iterative reconstruction technique Findings: Evaluation of the lungs is somewhat limited due to severe respiratory motion artifact. The lung volumes are low, with hypoventilatory changes seen bilaterally. The trachea and central bronchial tree remain patent. There is mild bandlike parenchymal opacity at the base of the left lower lobe which could represent a small infiltrate versus atelectasis. There are geographic areas of differential lung attenuation bilaterally suggesting air trapping. No pleural or pericardial effusions are seen. The heart remains normal in size. No developing thoracic lymphadenopathy is seen. Electronic device with lead identified in the left lower neck, possibly vagus nerve stimulator. A small portion of the upper abdomen included on the lowest images through the thorax is remarkable for a small hiatal hernia. Chronic mild thoracic vertebral compression fractures are without significant change. Procedure Note Ludy Duran MD - 04/05/2025 History: Recurrent aspiration pneumonia. Comparison: 10/15/24 Technique: Helical volumetric imaging of the thorax was performed withoutIV contrast. DLP: 436.56 mGy/cm SourceNinjaer Iterative reconstruction technique Findings: Evaluation of the lungs is somewhat limited due to severe respiratorymotion artifact. The lung volumes are low, with hypoventilatory changesseen bilaterally. The trachea and central bronchial tree remain patent. There is mildbandlike parenchymal opacity at the base of the left lower lobe whichcould represent a small infiltrate versus atelectasis. There aregeographic areas of differential lung attenuation bilaterally suggestingair trapping. No pleural or pericardial effusions are seen. The heart remains normal in size. No developing thoracic lymphadenopathyis seen. Electronic device with lead identified in the left lower neck, possiblyvagus nerve stimulator. A small portion of the upper abdomen included on the lowest images throughthe thorax is remarkable for a small hiatal hernia. Chronic mild thoracicvertebral compression fractures are without significant change. IMPRESSION: Impression: 1. Very limited, low lung volume exam with significant respiratory motionartifact. 2. No large airspace consolidations are seen. 3. Mild left lower lobe bandlike opacity, possibly a small infiltrate oratelectasis. 4. No developing thoracic lymphadenopathy. 5. Small hiatal hernia. [facility] ([id number]) -------- FINAL REPORT -------- Dictated By: Ludy Duran Dictated Date: 04/05/2025 09:45 ET Assigned Physician: Ludy Duran Reviewed and Electronically Signed By: Ludy Duran Signed Date: 04/05/2025 09:50 ET Workstation ID: [id number] Transcribed By: Self Edit Transcribed Date: 04/05/2025 09:45 ET Diana LE IMG CT PROCEDURES Final Result * Complete blood count (04/05/2025 5:20 AM EDT) [facility] WBC 10.6 4.8 - 10.8 K/mcL LAB HEMETOLOGY METHOD 04/05/2025 6:31 AM EDT [facility] RBC 4.70 3.80 - 4.80 M/mcL LAB HEMETOLOGY METHOD 04/05/2025 6:31 AM [facility] Hemoglobin 14.4 11.5 - 16.0 g/dL LAB HEMETOLOGY METHOD 04/05/2025 6:31 AM [facility] Hematocrit 43.0 35.0 - 47.0 % LAB HEMETOLOGY METHOD 04/05/2025 6:31 AM [facility] MCV 90.9 79.0 - 98.0 FL LAB HEMETOLOGY METHOD 04/05/2025 6:31 AM [facility] MCH 30.4 27.0 - 32.0 pcg LAB HEMETOLOGY METHOD 04/05/2025 6:31 AM [facility] MCHC 33.5 32.0 - 37.0 g/dL LAB HEMETOLOGY METHOD 04/05/2025 6:31 AM [facility] RDW 12.4 11.0 - 15.0 % LAB HEMETOLOGY METHOD 04/05/2025 6:31 AM [facility] Platelets 295 130 - 400 K/mcL LAB HEMETOLOGY METHOD 04/05/2025 6:31 AM [facility] MPV 10.5 7.0 - 11.0 FL LAB HEMETOLOGY METHOD 04/05/2025 6:31 AM EDT [facility] NRBC 0.0 <1.0 % LAB HEMETOLOGY METHOD 04/05/2025 6:31 AM EDT [facility] NRBC Absolute 0.00 <0.10 K/mcL LAB HEMETOLOGY METHOD 04/05/2025 6:31 AM EDT [facility] Blood Venous blood specimen / Unknown Venipuncture / Unknown 04/05/2025 5:20 AM EDT 04/05/2025 6:12 AM EDT Yue Zavala MD LAB BLOOD ORDERABLES Final Res ult Performing Organization Address [facility]/ZIP Co de Phone Number [facility] [address] [place] [address], [place] [phone] * (ABNORMAL) Osmolality (04/05/2025 5:20 AM EDT) Osmolality Bertin 274(L) 280 - 300 mOsm/kg LAB CHEMISTRY METHOD 04/05/2025 10:14 AM EDT [facility] Blood Venous blood specimen / Unknown Venipuncture / Unknown 04/05/2025 5:20 AM EDT 04/05/2025 6:12 AM EDT Carlie Morales MD LAB BLOOD ORDERABLES Final Resu lt [facility] [address] [place] [address], [place] [phone] * Creatine kinase (04/05/2025 5:20 AM EDT) Total CK 61 22 - 269 unit/L LAB CHEMISTRY METHOD 04/05/2025 9:42 AM EDT [facility] Blood Venous blood specimen / Unknown Venipuncture / Unknown 04/05/2025 5:20 AM EDT 04/05/2025 6:12 AM EDT us Carlie Morales MD LAB BLOOD ORDERABLES Final Resu lt [facility] [address] [place] [address], [place] [phone] * (ABNORMAL) Basic metabolic panel (04/05/2025 5:20 AM EDT) Only the most recent of2 resultswithin the time period is included. Sodium 131(L) 133 - 145 mmol/L LAB CHEMISTRY METHOD 04/05/2025 7:33 AM [facility] Potassium 3.9 3.5 - 5.5 mmol/L LAB CHEMISTRY METHOD 04/05/2025 7:33 AM [facility] Chloride 98 96 - 110 mmol/L LAB CHEMISTRY METHOD 04/05/2025 7:33 AM [facility] CO2 24 21 - 32 mmol/L LAB CHEMISTRY METHOD 04/05/2025 7:33 AM [facility] Anion Gap 9 3 - 11 LAB CHEMISTRY METHOD 04/05/2025 7:33 AM [facility] Glucose 118(H) 70 - 100 mg/dL LAB CHEMISTRY METHOD 04/05/2025 7:33 AM [facility] BUN 4(L) 5 - 25 mg/dL LAB CHEMISTRY METHOD 04/05/2025 7:33 AM [facility] Creatinine 0.49(L) 0.50 - 1.10 mg/dL LAB CHEMISTRY METHOD 04/05/2025 7:33 AM [facility] eGFR 125 >=60 mL/min/1. 73m2 LAB CHEMISTRY METHOD 04/05/2025 7:33 AM [facility] Comment:Calculation based on the Chronic Kidney Disease Epidemiology Collaboration (CKD-EPI) equation refit without adjustment for race. BUN/Creatinine Ratio 8.2 LAB CHEMISTRY METHOD 04/05/2025 7:33 AM EDT [facility] Calcium 9.0 8.5 - 10.5 mg/dL LAB CHEMISTRY METHOD 04/05/2025 7:33 AM EDT [facility] Blood Venous blood specimen / Unknown Venipuncture / Unknown 04/05/2025 5:20 AM EDT 04/05/2025 6:12 AM EDT Yue Zavala MD LAB BLOOD ORDERABLES Final Res ult Performing Organization Address [facility]/ZIP Co de Phone Number [facility] [address] [place] [address], [place] [phone] * Lactate, with Reflex (04/04/2025 6:44 PM EDT) LACTIC ACID 1.7 0.4 - 2.0 mmol/L LAB CHEMISTRY METHOD 04/04/2025 7:26 PM EDT [facility] Blood Venous blood specimen / Unknown Venipuncture / Unknown 04/04/2025 6:44 PM EDT 04/04/2025 6:50 PM EDT Wendie Cooper MD LAB BLOOD ORDERABLES Final Resul t Performing Organization Address [facility]/ZIP Co de Phone Number [facility] [address] [place] [address], [place] [phone] * Lamotrigine level (04/04/2025 6:44 PM EDT) Lamotrigine (Lamictal) Level 5.9 2.0 - 15.0 ug/mL 04/07/2025 12:28 PM EDT [facility] Comment: Lamotrigine toxic level: >20 ug/mL The reference range is not well established. It may be as wide as 1 - 20 ug/mL. If applicable, any drug confirmation testing reported here was developed and the performance characteristics determined by [facility]. This confirmation testing has not been cleared or approved by the FDA. The laboratory is regulated under CLIA as qualified to perform high-complexity testing. This test is used for patient testing purposes. It should not be regarded as investigational or for research. Test performed at [facility], [address] , [place] [address] Leisa Barragan MD, PhD - Set And Exhibit Designer Blood Venous blood specimen / Unknown Venipuncture / Unknown 04/04/2025 6:44 PM EDT 04/04/2025 6:49 PM EDT us Wendie Cooper MD LAB BLOOD ORDERABLES Final Resul t [facility] [address] [place] [address] * [id number], RSV, Influenza A and B qualitative RT-PCR (04/04/2025 1:28 PM EDT) Influenza A PCR Not Detected Not Detected LAB MICROBIOLOGY METHOD 04/04/2025 2:51 PM EDT [facility] Influenza B PCR Not Detected Not Detected LAB MICROBIOLOGY METHOD 04/04/2025 2:51 PM EDT [facility] RSV PCR Not Detected Not Detected LAB MICROBIOLOGY METHOD 04/04/2025 2:51 PM EDT [facility] SARS COV-2 Not Detected Not Detected LAB MICROBIOLOGY METHOD 04/04/2025 2:51 PM EDT [facility] Swab Both anterior nares / Unknown Non-blood Collection / Unknown 04/04/2025 1:28 PM EDT 04/04/2025 2:08 PM EDT Narrative [facility] - 04/04/2025 2:51 PM EDT Disclaimer: Testing was performed using the [employer] GeneXpert Xpress SARS-CoV-2 _Flu_RSV PLUS PCR assay. The manner in which this information is used to guide patient care is the responsibility of the healthcare provider. Results should be correlated with the clinical history, epidemiological data, and other data available to the clinician evaluating the patient. Negative results do not preclude infection. This test has been authorized by the FDA under an Emergency Use Authorization (EUA). This test is only authorized for the duration of time the declaration that circumstances exist justifying the authorization of the emergency use of in vitro diagnostic tests for detection of SARS-CoV-2 virus and/or diagnosis of COVID-19 infection under section 564 (b) (1) of the Act, 21 U.S.C 360bbb-3 (b) (1), unless the authorization is terminated or revoked sooner. Reference Range: Not Detected Fact sheet for Healthcare providers can be found at https://www.fda.gov/media/369210/download. Fact sheet for Healthcare patients can be found at https://www.fda.gov/media/706565/download. Wendie Cooper MD LAB MICROBIOLOGY - GENERAL ORDER UTE Final Result Performing Organization Address City/[facility] Co de Phone Number [facility]) [facility] [address] [place] [address], * ECG 12 lead (04/04/2025 11:02 AM EDT) [facility] Signature Ventricular Rate ECG 93 BPM GEMUSE Atrial Rate 93 BPM GEMUSE P-R Interval 160 ms GEMUSE QRS Duration 76 ms GEMUSE Q-T Interval 350 ms GEMUSE QTc 435 ms GEMUSE P Wave Vega 30 degrees GEMUSE R Vega 56 degrees GEMUSE T Vega -7 degrees GEMUSE ECG Interpretation Normal sinus rhythm T wave abnormality, consider inferior ischemia T wave abnormality, consider anterior ischemia When compared with ECG of 14-OCT-2024 17:27, No significant change was found Confirmed by KIANNA MELENDREZ ([id number]) on 04/04/2025 11:47:21 PM GEMUSE 04/04/2025 11:0 2 AM EDT 04/04/2025 11:47 PM EDT us Wendie Cooper MD ECG ORDERABLES Final Result Performing Organization Address City/[facility] de Phone Number GEMUSE * Prolactin (04/04/2025 10:40 AM EDT) Prolactin 5.30 See Comment ng/mL LAB CHEMISTRY METHOD 04/04/2025 11:30 AM EDT [facility] Comment: Prolactin Reference Ranges (ng/mL) Non 2.2 - 30.3 8.1 - 347.6 Postmenopausal 0.7 - 31.5 Blood Venous blood specimen / Unknown Venipuncture / Unknown 04/04/2025 10:40 AM EDT 04/04/2025 10:52 AM EDT us Wendie Cooper MD LAB BLOOD ORDERABLES Final Resul t Performing Organization Address [facility] de Phone Number [facility] [address] [place] [address], [place] [phone] * hCG, serum, qualitative (04/04/2025 10:40 AM EDT) Pathologist [facility] hCG Qual Negative Negative 04/04/2025 8:36 PM EDT [facility] Blood Venous blood specimen / Unknown Venipuncture / Unknown 04/04/2025 10:40 AM EDT 04/04/2025 10:52 AM EDT us Wendie Cooper MD LAB BLOOD ORDERABLES Final Resul t Performing Organization Address [facility] de Phone Number [facility] [address] [place] [address], [place] [phone] * (ABNORMAL) Carbamazepine level, total (Tegretol) (04/04/2025 10:40 AM EDT) Pathologist [facility] Carbamazepine Level <0.5(L) 8.0 - 12.0 mcg/mL LAB CHEMISTRY METHOD 04/04/2025 2:09 PM EDT [facility] Blood Venous blood specimen / Unknown Venipuncture / Unknown 04/04/2025 10:40 AM EDT 04/04/2025 10:52 AM EDT us Wendie Cooper MD LAB BLOOD ORDERABLES Final Resul t [facility] [address] [place] [address], * [place] CRITICAL CARE 30-74 MINUTES (04/04/2025 9:57 AM EDT) Wendie Young MD - 04/04/2025 9:57 AM EDT Wendie Cooper MD 04/04/2025 10:42 PM Critical Care Performed by: Wendie Cooper MD Authorized by: Wendie Cooper MD Critical care provider statement: Critical care time (minutes): 45 Total face to face critical care time (minutes): 20 Critical care time was exclusive of: Separately billable procedures and treating other patients Critical care was necessary to treat or prevent imminent or life-threatening deterioration of the following conditions: MANAGER FORMS failure or compromise Critical care was time spent personally by me on the following activities: Development of treatment plan with patient or surrogate, discussions with consultants, evaluation of patient's response to treatment, examination of patient, interpretation of cardiac output measurements, obtaining history from patient or surrogate, ordering and performing treatments and interventions, ordering and review of laboratory studies, pulse oximetry, re-evaluation of patient's condition and review of old charts Face to face critical care was time spent personally by me on the following activities: Development of treatment plan with patient or surrogate, evaluation of patient's response to treatment, examination of patient, interpretation of cardiac output measurements, obtaining history from patient or surrogate, ordering and performing treatments and interventions, pulse oximetry and re-evaluation of patient's condition I assumed direction of critical care for this patient from another provider in my specialty: no Care discussed with: admitting provider Comments: Neurolog us Wendie Cooper MD IN CLINIC/BEDSIDE ORDERABLES Fin al Result * Hepatitis C antibody (02/27/2025 8:54 AM EDT) Hepatitis C Antibody Negative Negative LAB CHEMISTRY METHOD 02/27/2025 1:23 PM EDT [facility] Blood Venous blood specimen / Unknown Venipuncture / Unknown 02/27/2025 8:54 AM EDT 02/27/2025 8:54 AM EDT Ileana Theodore CLINICAL TRIALS ASSISTANT LAB BLOOD ORDERABLES Final Resu lt Performing Organization Address [facility]/ZIP Co de Phone Number [facility] [address] [place] [address], * Hepatitis A antibody total with reflex IgM (02/27/2025 8:54 AM EDT) Hep A Total Ab Negative Negative LAB CHEMISTRY METHOD 02/27/2025 1:23 PM EDT [facility] Blood Venous blood specimen / Unknown Venipuncture / Unknown 02/27/2025 8:54 AM EDT 02/27/2025 8:54 AM EDT Narrative [facility] - 02/27/2025 1:23 PM EDT Over the counter supplements containing high doses of biotin may interfere with this assay. If interference is suspected, patients shoud be retested after refraining from biotin supplements for 72 hours. us Ileana Theodore NP LAB BLOOD ORDERABLES Final Resu lt Performing Organization Address [facility]/ZIP Co de Phone Number [facility] [address] [place] [address], * (ABNORMAL) Hepatitis B screening panel (02/27/2025 8:54 AM EDT) Hepatitis B Surface Ag Negative Negative LAB CHEMISTRY METHOD 02/27/2025 1:24 PM EDT [facility] Hep B Core Total Ab Negative Negative LAB CHEMISTRY METHOD 02/27/2025 1:24 PM EDT [facility] Hepatitis B Surface Ab Positive(A) Negative LAB CHEMISTRY METHOD 02/27/2025 1:24 PM EDT [facility] Blood Venous blood specimen / Unknown Venipuncture / Unknown 02/27/2025 8:54 AM EDT 02/27/2025 8:54 AM EDT us Ileana Theodore CLINICAL TRIALS ASSISTANT LAB BLOOD ORDERABLES Final Resu lt Performing Organization Address [facility] Co de Phone Number [facility] [address] [place] [address], [place] [phone] * (ABNORMAL) JEREMY IFA with titer and pattern (02/27/2025 8:54 AM EDT) JEREMY Positive( A) Negative 02/28/2025 11:02 AM EDT [facility] JEREMY Pattern Homogeneo us(A) (none) 02/28/2025 11:02 AM EDT [facility] Comment:May be Associated wi th SLE and drug-induced SLE. Titer 1:320(A) <1:160 02/28/2025 11:02 AM EDT [facility] Comment: Approximately 3% of healthy persons have JEREMY titer of 1:320 or higher Further testing for other autoantibodies should be prompted by specific clinical findings/impressions. Blood Venous blood specimen / Unknown Venipuncture / Unknown 02/27/2025 8:54 AM EDT 02/27/2025 8:54 AM EDT us Ileana Krausugua CLINICAL TRIALS ASSISTANT LAB BLOOD ORDERABLES Final Resu lt Performing Organization Address [facility]/ZIP Co de Phone Number [facility] [address] [place] [address], [place] [phone] * (ABNORMAL) Smooth muscle antibody IgG (02/27/2025 8:54 AM EDT) Smooth Muscle (F-Actin) IgG Ab 29(H) <20 UNITS 03/01/2025 11:57 AM EDT [facility] Comment: Interpretation: Weak Positive Test performed at [facility], [address], [place] [address] Leisa Barragan MD, PhD - Set And Exhibit Designer Blood Venous blood specimen / Unknown Venipuncture / Unknown 02/27/2025 8:54 AM EDT 02/27/2025 8:54 AM EDT Ileana Theodore CLINICAL TRIALS ASSISTANT LAB BLOOD ORDERABLES Final Resu lt [facility] [address] [place] [address] * (ABNORMAL) Smkun-[id number]-oyliinnafbj (02/27/2025 8:54 AM EDT) A-1 Antitrypsin 209(H) 90 - 200 mg/dL LAB CHEMISTRY METHOD 02/27/2025 2:28 PM EDT [facility]) [facility] Blood Venous blood specimen / Unknown Venipuncture / Unknown 02/27/2025 8:54 AM EDT 02/27/2025 8:54 AM EDT Ileana Theodore NP LAB BLOOD ORDERABLES Final Resu lt Performing Organization Address [facility]/ZIP Co de Phone Number [facility] [address] [place] [address], [place] [phone] * Ceruloplasmin (02/27/2025 8:54 AM EDT) Ceruloplasmin 30 20 - 60 mg/dL 03/01/2025 5:39 AM EDT [facility] Comment: Test performed at [facility], [address], [place] [address] Leisa Barragan MD, PhD - Set And Exhibit Designer Blood Venous blood specimen / Unknown Venipuncture / Unknown 02/27/2025 8:54 AM EDT 02/27/2025 8:54 AM EDT us Ileana Theodore CLINICAL TRIALS ASSISTANT LAB BLOOD ORDERABLES Final Resu lt [facility] [address] [place] [address] * Antimitochondrial antibody (02/27/2025 8:54 AM EDT) Pathologist [facility] Mitochondrial Antibody Quantitative 13.8 <=20.0 units LAB CHEMISTRY METHOD 03/01/2025 11:28 AM EDT [facility] Mitochondrial Antibody Qualitative Negative Negative LAB CHEMISTRY METHOD 03/01/2025 11:28 AM EDT [facility] Blood Venous blood specimen / Unknown Venipuncture / Unknown 02/27/2025 8:54 AM EDT 02/27/2025 8:54 AM EDT Ileana Theodore CLINICAL TRIALS ASSISTANT LAB BLOOD ORDERABLES Final Resu lt Performing Organization Address [facility]/ZIP Co de Phone Number [facility] [address] [place] [address], * Hepatic function panel (02/27/2025 8:54 AM EDT) [facility] Total Protein 7.1 6.0 - 8.0 g/dL LAB CHEMISTRY METHOD 02/27/2025 2:40 PM EDT [facility] Albumin 3.4 3.2 - 5.0 g/dL LAB CHEMISTRY METHOD 02/27/2025 2:40 PM EDT [facility] Total Bilirubin 0.5 0.0 - 1.4 mg/dL LAB CHEMISTRY METHOD 02/27/2025 2:40 PM EDT [facility] Bilirubin, Direct 0.2 0.0 - 0.3 mg/dL LAB CHEMISTRY METHOD 02/27/2025 2:40 PM EDT [facility] Bilirubin, Indirect 0.3 0.0 - 1.1 mg/dL LAB CHEMISTRY METHOD 02/27/2025 2:40 PM EDT [facility] ALT (SGPT) 30 10 - 60 unit/L LAB CHEMISTRY METHOD 02/27/2025 2:40 PM EDT [facility] AST (SGOT) 23 10 - 42 unit/L LAB CHEMISTRY METHOD 02/27/2025 2:40 PM EDT [facility] Alkaline Phosphatase 94 42 - 121 unit/L LAB CHEMISTRY METHOD 02/27/2025 2:40 PM EDT [facility] Blood Venous blood specimen / Unknown Venipuncture / Unknown 02/27/2025 8:54 AM EDT 02/27/2025 8:54 AM EDT us Ileana Theodore CLINICAL TRIALS ASSISTANT LAB BLOOD ORDERABLES Final Resu lt [facility] [address] [place] [address], [place] [phone] * (ABNORMAL) TRANSTHORACIC ECHOCARDIOGRAM (TTE) COMPLETE (02/01/2025 3:51 PM EDT) Left Atrium Minor Vega 3.7 cm CV PACS Left Atrium Major Vega 4.4 cm CV PACS LA Area Sys (A2C) 8 cm2 CV PACS LA Area Sys (A4C) 14 cm2 CV PACS LA Volume (BP) 25 mL CV PACS RA Area 10.2 cm2 CV PACS RA 2D Volume 20 mL CV PACS Aortic Sinus Valsalva 2.6 cm CV PACS Ascending Aorta 2.9 cm CV PACS IVSD 0.7 0.6 - 0.9 cm CV PACS LVIDD 3.1(A) 3.8 - 5.2 cm CV PACS LVIDS 2.0(A) 2.2 - 3.5 cm CV PACS LVOT Diameter 1.7 cm CV PACS LVOT Mean Anthony 0.7 m/s CV PACS LVOT Mean Grad 3 mmHg CV PACS LVOT Peak VTI 20.8 cm CV PACS LVOT Peak Anthony 1.1 m/s CV PACS LVOT Peak Gradient 5 mmHg CV PACS LVPWD 0.7 0.6 - 0.9 cm CV PACS MV E' Tissue Velocity Lateral 11 cm/s CV PACS MV E' Tissue Velocity Septal 7 cm/s CV PACS LVOT Area 2.3 cm2 CV PACS LVOT Stroke Volume 47 mL CV PACS MV Deceleration Galax 4.2 m/s2 CV PACS E Wave Deceleration Time 169 119 - 242 ms CV PACS MV PHT 50 ms CV PACS MV Peak A Anthony 0.48 m/s CV PACS MV Peak E Anthony 0.70 m/s CV PACS MV Area PHT 4.4 cm2 CV PACS PV Acceleration Time 90 ms CV PACS RV Diastolic Basal Dimension 2.8 2.5 - 4.1 cm CV PACS TAPSE 20 mm CV PACS E/E' Ratio Septal 10 CV PACS E/E' Ratio Averaged 8 CV PACS Relative Wall Thickness ratio 0.45 CV PACS FS 35 % CV PACS LV Mass 2D 52 g CV PACS LVOT flow 159 mL/s CV PACS E/A Ratio 1.5 CV PACS E/E' Ratio Lateral 6 CV PACS BSA 1.55 m2 CV PACS LA Volume Index (BP) 17 mL/m2 CV PACS LVIDD Index 2.07 cm/m2 CV PACS LVIDS Index 1.33 cm/m2 CV PACS LV Mass Index 2D 34(A) 44 - 88 g/m2 CV PACS LVOT Stroke Index 31 mL/m2 CV PACS RA 2D Volume Index 13(A) 15 - 27 mL/m2 CV PACS Ascending Aorta Index 1.93 cm/m2 CV PACS Anatomical Region Laterality Modality Ultrasound Narrative 02/02/2025 8:22 AM EDT Left ventricle cavity is small. Left ventricular systolic function is in the normal range with an ejection fraction of 55-60%. No regional LV wall motion abnormalities noted. Left ventricle wall thickness is normal. Right ventricle cavity is normal. Right ventricular systolic function is normal. No significant valvular abnormalities Left Ventricle Left ventricle cavity is small. Wall thickness is normal. Systolic function is normal with an ejection fraction of 55-60%. There are no regional LV wall motion abnormalities. There is no diastolic dysfunction. Right Ventricle Right ventricle cavity appears normal. Systolic function is normal. Normal TAPSE (> 17 mm). Left Atrium Left atrium cavity size is normal. Right Atrium Right atrium cavity is normal. IVC/SVC Inferior vena cava was not well visualized. Mitral Valve Mitral valve structure is normal. There is no significant mitral valve regurgitation. There is no significant stenosis noted. Tricuspid Valve Tricuspid valve structure is normal. There is no significant regurgitation. There is no significant tricuspid valve stenosis. Aortic Valve The aortic valve is trileaflet. The leaflets are not thickened and exhibit normal excursion. There is no regurgitation or stenosis. Pulmonic Valve The pulmonic valve was not well visualized. No significant pulmonic valve regurgitation. No significant pulmonary valve stenosis noted. Ascending Aorta The aorta appears normal in size. Study Details Overall the study quality was adequate. Haleigh LE CV ECHO PROCEDURES Final Resu lt * Lipid panel (05/12/2024) LDL/HDL Ratio 2 0 - 4 Triglycerides 72 0 - 150 mg/dL Cholesterol 125 0 - 200 mg/dL HDL 64 >=40 mg/dL LDL Cholesterol 47 0 - 100 mg/dL Blood Venous blood specimen / Unknown Result [facility] Historical Provider LAB BLOOD ORDERABLES Nadeen l Result * Depression Screening (05/11/2024) Pathologist [facility] Depression Screening abstracted Result [facility] Historical Provider HEALTH MAINTENANCE Final Result from Last 3 Months or Most Recently Relevant to Health Maintenance Insurance [place]ICARE [place]ICAID [place] Advance Directives Documents on File Type Date Recorded Patient Vessel Scrapper Expl anation Advance Directives and Living Will 04/12/2025 1:20 PM Power of Winery Worker 04/12/2025 1:20 PM Advance Directives and Living Will 04/10/2025 9:35 AM PROXY Power of Winery Worker 04/05/2025 10:49 AM Dura ble Power of Winery Worker Power of Winery Worker 04/05/2025 10:47 AM Dura ble Power of [place] Health Care Decision (hx) 09/22/2019 ADVANCE DIRECTIVE Health Care Decision (hx) 09/22/2019 ADVANCE DIRECTIVE Health Care Decision (hx) 09/22/2019 ADVANCE DIRECTIVE Health Care Decision (hx) 09/22/2019 ADVANCE DIRECTIVE Health Care Decision (hx) 09/22/2019 ADVANCE DIRECTIVE Health Care Decision (hx) 09/22/2019 ADVANCE DIRECTIVE Health Care Decision (hx) 09/22/2019 ADVANCE DIRECTIVE Health Care Decision (hx) 09/22/2019 ADVANCE DIRECTIVE Health Care Decision (hx) 09/22/2019 ADVANCE DIRECTIVE Health Care Decision (hx) 09/22/2019 ADVANCE DIRECTIVE Health Care Decision (hx) 09/22/2019 ADVANCE DIRECTIVE Health Care Decision (hx) 09/22/2019 ADVANCE DIRECTIVE Health Care Decision (hx) 09/22/2019 ADVANCE DIRECTIVE Health Care Decision (hx) 09/22/2019 ADVANCE DIRECTIVE Health Care Decision (hx) 09/22/2019 ADVANCE DIRECTIVE Health Care Decision (hx) 09/22/2019 ADVANCE DIRECTIVE Health Care Decision (hx) 09/22/2019 ADVANCE DIRECTIVE Health Care Decision (hx) 09/22/2019 ADVANCE DIRECTIVE Health Care Decision (hx) 09/22/2019 Codey Benites ADVANCE DIRECTIVE * Full Code - Default (Latest Code Status on File) Date Activated Date Inactivated Comments 04/07/2025 7:21 PM 04/11/2025 5:00 PM This is orde r is used when code status has not been discussed with the patient, or code status is otherwise unknown/unconfirmed To update the patient's code status, place a code status order. Do not modify or discontinue any currently active code status orders. * Full Code - Default Date Activated Date Inactivated Comments 04/04/2025 4:07 PM 04/07/2025 6:45 PM This is orde r is used when code status has not been discussed with the patient, or code status is otherwise unknown/unconfirmed To update the patient's code status, place a code status order. Do not modify or discontinue any currently active code status orders. * Full Code - Default Date Activated Date Inactivated Comments 10/15/2024 8:46 AM 10/16/2024 12:51 PM This is ord er is used when code status has not been discussed with the patient, or code status is otherwise unknown/unconfirmed To update the patient's code status, place a code status order. Do not modify or discontinue any currently active code status orders. Healthcare Agents on File Name Relationship Healthcare Agent [facility] Communication Codey Lynne [facility] Health Care Agent Stanislaw Benites [facility] Health Care Agent Care Teams Oracle Database Manager Relationship Specialty Start Date End Date Sid Jo MD [address] [place] [phone] PCP - General Internal Medicine 06/29/24
--- OUTSIDE RECORDS SUMMARY | 2025-04-23 12:47 | XMS_ITS | Encounter Summary ---
Author Organization [facility] Address [address] [place] [address] Care Team Providers Care Sea Kayaking Guide Name Role Phone Sid Jo MD Primary Care Provider [phone] Reason for Visit * Reason Onset Date Comments Medication Problem 04/20/2025 Encounter Details Date Type Department Care Team (Late st Contact Info) Description 04/20/2025 Telephone Adult Medicine [address] [phone] Selene Dorsey MA Social History Tobacco Use Types Packs/Day Years [...] care for your loved ones. For example, childrens club attendant or elderly care for an older adult? [...] on file documented as of this encounter Functional Status * Are you deaf or do you have serious difficulty hearing? Answer Date of Assessment Author No 10/15/2024 2:00 AM Betty Bautista, CARTER * Are you blind or do you [...] Betty Bautista RN documented in this encounter Progress Notes * Susan Smith MA - 04/21/2025 11:21 AM EDT Message left on voice mail. * Selene Dorsey MA - 04/20/2025 12:54 PM EDT Medication Problem: What is the name of the medication patient is having a problem with?: Pantroparazole What is the problem?: Missing HOW MANY TIMES A DAY TO TAKE IT Who is calling about the problem? : Other: Name of caller: KEIRY Relationship to patient: MOM Is this a NEW medication?: yes How long has the patient been taking this medication? ON GOING Who prescribed this medication for the patient? PCP Who is patients PCP?: Sid Jo MD Payor: MEDICARE / Plan: MEDICARE PART A & B / Product Type: Medicare / documented in this encounter Plan of Treatment Upcoming Encounters Date Type Department Care Team (Late st Contact Info) Description 05/19/2025 9:00 AM EDT Office Visit Adult Medicine [place] - [address] [phone] Sid Jo MD [address] [place] [address] 07/03/2025 9:00 AM EST Office Visit Endocrinology - [address] [phone] Pushpa Lebron MD [address] [place] [address] documented as of this encounter Visit Diagnoses Not on filedocumented in this encounter Care Teams Sea Kayaking Guide Relationship Specialty Start Date End Date Sid Jo MD [address] [place] [address] PCP - General Internal Medicine 06/29/24 documented as of this encounter
--- OUTSIDE RECORDS SUMMARY | 2025-04-23 12:47 | XMS_ITS | Clinical Summary ---
Author Organization [facility] Address [address] [facility] [address] [place] [address] Phone Care Team Providers Care In Tube Conversion Technician Name Role Phone Sid Jo MD Primary Care Provider [phone] Allergies Active Allergy Reactions Criticality Noted Date Comments Carbamazepine Other (see comments) 10/01/2021 Gabapentin Other (see comments) 10/01/2021 Zonisamide Other (see comments) 10/01/2021 Medications sodium chloride 1 g tablet Comments: Filled Date: Mar 10 2020 4:44PM Patient Notes: TAKE 1 TABLET BY MOUTH THREE TIMES DAILY Duration: 30 03/10/2020 Active OXcarbazepine (TRILEPTAL) 150 MG tablet Take 2 tablets by mouth in the morning and 2 tablets in the evening. Active omeprazole (PriLOSEC) [address] capsule Take 1 capsule by mouth 1 (one) time each day Active levothyroxine (SYNTHROID, LEVOTHROID) 50 MCG tablet Take 1 tablet by mouth 0.05mg Active lamoTRIgine ER 25 MG tablet sustained-releas e 24 hour Take 4 tablets by mouth 2 (two) times a day Active lamoTRIgine (LaMICtal) 100 MG dispersible tablet Take 1 tablet by mouth in the morning and 1 tablet in the evening. Active cloBAZam (ONFI) 10 MG tablet Take 0.5 tablets by mouth at bed time Active cholecalciferol (VITAMIN D-3) 25 MCG (1000 UT) capsule Take 1 capsule by mouth 1 (one) time each day Active atorvastatin (LIPITOR) 80 MG tablet Take 1 tablet by mouth 1 (one) time each day Active aspirin (ST LENNY) 81 MG EC tablet Take 1 tablet by mouth 1 (one) time each day Active hydrocortisone (CORTEF) 5 MG tablet Take 5 mg by mouth in the morning and 5 mg in the evening. 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 Immunizations Immunization Administration Dates Next Due Influenza Split High Dose Preservative Free IM 1 10/21/2017 Tdap 03/18/2011 Family History Medical History Relation Comments Cancer Father neurofibromatosi s Hypertension Father Hypertension Mother Hypertension Sibling brother Relation Status Comments Father Alive Mother Alive Sibling Social History Tobacco Use Types Packs/Day Years Used Date Smoking Tobacco: Never Alcohol Use Standard Drinks/Week Comments No 0 (1 standard drink = 0.6 oz pur e alcohol) Comments Unknown Sex and Gender Information Value Date Recorded Sex Assigned at Not on file Legal Sex Female 4:48 PM EST Gender Identity Not on file Sexual Orientation Not on file Last Filed Vital Signs Vital Sign Reading Time Taken Comments Blood Pressure 118/62 10/01/2021 1:00 PM EST Pulse 88 10/01/2021 1:00 PM EST Temperature - - Respiratory Rate - - Oxygen Saturation 97% 10/01/2021 1:00 PM EST Inhaled Oxygen Concentration - - Weight 58.1 kg (128 lb) 10/01/2021 1:00 PM EST Height 142.2 cm (4' 8 ) 10/28/2019 12:00 PM EST Body Mass Index 28.7 10/28/2019 12:00 PM EST Plan of Treatment Health Maintenance Due Date Last Done Comments Pneumococcal Vaccine: Peds ( 0 to 5 Years) and At-Risk Patients (6 to 49 Years) (1 of 2 - PCV) 2007 Influenza Vaccine (#1) 2025 , 07/05/2020, 06/10/2019, Additional history exists Hepatitis B Vaccine Completed 04/20/2001, 01/12/2001, 12/10/2000 Insurance Medicare Medicaid [place] Care Teams In Tube Conversion Technician Relationship Specialty Start Date End Date Sid Jo MD PCP - General 09/03/20
--- OUTSIDE RECORDS SUMMARY | 2025-04-23 12:47 | XMS_ITS ---
Author Organization [facility] [address] [place] [address] Address [address] [place], [place] Phone Care Team Providers Care Dynamic Etching Processor Name Role Phone Sid Jo MD Primary Care Provider Transitional Care Management Status:Ongoing (Active) Start date:04/11/2025 Enrollment date:04/11/2025 Enrollment reason:Identified using hospital discharge data Overview Lynen Alegre is POA Case Team Name Relationship Phone Ani Mcclain LPN Care Manager(Responsible Staff) Continued Care and Services Coordination
--- OUTSIDE RECORDS SUMMARY | 2025-04-23 12:47 | XMS_ITS ---
Author Organization [address] Address [address] [place] [address] Phone Care Team Providers Care Wool Handler Name Role Phone Sid Jo MD Primary Care Provider Active Problems Problem Noted Date Diagnosed Date Seizure ([facility] V24, [facility] V28) 04/07/2025 Recurrent seizures ([facility] V24, [facility] V28) Esophagitis 10/16/2024 Multifocal pneumonia 10/15/2024 Anemia 05/24/2024 Late effect of cerebrovascular accident (CVA) 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 Overview (05/24/2024): Offered growth hormone 10/29 Hepatitis 03/23/2007 Overview (05/24/2024): mild, assoc's with transient elevation of ammonia, while on depakote, detected during hospitalization [address] cheung, possible liver bx 03/30 - mild changes, non-specific - monitor q 6 mos [address] enzymes [address] cheung Pamella update Allergic rhinitis 06/19/2006 Overview (05/24/2024): +RAST dust mites 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): , secondary to pathologic fractures, neurofibromatosis Malignant neoplasm of brain ([facility] V24, [facility]/ C V28) 06/19/2006 Overview (05/24/2024): followed by dr zamora and oncology yearly PDD (pervasive developmental disorder) 6 Hypothyroidism 06/19/2006 Overview (05/24/2024): on synthroid 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 She agreed. Intractable epilepsy ([facility] V24, [facility] V28) 05/04/2006 Overview (05/24/2024): Previously followed by dr malagon, at transfer to Dr Watts was on Dilantin and Phenobarb, care transferred to dr fareed watts 12/28 (Adult Nerurology at [facility]), switch to dr trevino 05/01, dr elizondo [...] Overview (05/24/2024): see neuropsych eval 07/30 Neurofibromatosis (CMS/HCC V24, CMS/HCC V28) 06/2006 Current Oncology Plans No current plan information found. Past Plans No past plan information found. Radiation Treatments * No radiation treatments are documented for this patient in Epic. Treatments may have been administered in another system. Lifetime Dose Tracking * Chemical Lifetime Dose Automatic Entry Manual Entr y CTDIvol 9.15 mGy 9.15 mGy 0 mGy
[2025-04-23] MEDS: Lidocaine HCl Viscous 2 % 15 ML SOLUTION PO (13:56)
[2025-04-23 14:06] LABS: Appearance Urine Clear; Glucose Urine UA Negative (Negative); PH 6.0 (5.0-9.0); Specific Gravity - Urine >= 1.030 (1.005-1.025); UMIC TRIGGER UACC YES
[2025-04-23 15:55] VITALS: BP 117/79; PULSE 84; RESP 21; O2SAT 95
[2025-04-23 16:14] VITALS: BP 104/74; PULSE 81; RESP 18; TEMP 36.3; O2SAT 96
--- NOTE | 2025-04-23 16:17 | MHC.EDTECH ---
patient changed and repositioned
[2025-04-23 20:17] VITALS: BP 132/95; PULSE 94; RESP 16; TEMP 36.7; O2SAT 93
[2025-04-23 20:30] VITALS: BP 132/95; PULSE 94; RESP 16; TEMP 36.7; O2SAT 93
== END 2025-04-23 20:31 | disposition home or self-care (01) ==
PROVIDERS: Emergency Provider Emergency Medicine; PCP Internal Medicine
DX: R41.82 Altered mental status, unspecified (principal); R62.59 Other lack of expected normal physiological development in childhood; R53.83 Other fatigue; G40.802 Other epilepsy, not intractable, without status epilepticus; Z79.899 Other long term (current) drug therapy; S40.021A Contusion of right upper arm, initial encounter; S10.93XA Contusion of unspecified part of neck, initial encounter; X58.XXXA Exposure to other specified factors, initial encounter; Y93.9 Activity, unspecified; Y92.89 Other specified places as the place of occurrence of the external cause; Y99.8 Other external cause status; Z89.9 Acquired absence of limb, unspecified; Z87.19 Personal history of other diseases of the digestive system
CPT/HCPCS: 36415; 70450; 73502; 80048; 80164; 81001; 82947; 85025; 96361; 96374; 96375; 99285; J1630; J1885

== ENCOUNTER → 2025-04-23 11:54 | Outpatient (BNV) | payer MEDICARE, MEDICAID, SELFPAY | PROVIDERS: Emergency Provider Emergency Medicine; PCP Internal Medicine; Visit Provider Radiology Diagnostic Radiology | DX: I63.89 Other cerebral infarction (principal); M25.551 Pain in right hip | CPT/HCPCS: 70450; 73502 ==

== ENCOUNTER 2025-06-14 17:26 | Emergency (ER) | payer MEDICARE, MEDICAID, SELFPAY ==
[2025-06-14 17:44] VITALS: BP 106/65; PULSE 106; RESP 20; TEMP 36.8; O2SAT 95; BMI 28.0
--- NOTE | 2025-06-14 17:44 | ED.GENADULT ---
HPI - General Adult General Chief complaint: General Medical Stated complaint: vomiting/sore throat/not eating Time Seen by Provider: 06/14/25 21:00 History of Present Illness ED Provider: malcolm HPI narrative: 34 F hx CVA, NF, Sz d/o with multiple seizures weekly including 1 prior to arrival today. Main reason for visit was 1 episode of vomiting last evening and decreased p.o. intake today. Mother reports that the patient is complaining of some sore throat. No subsequent vomiting today patient has not felt warm and has not complained of abdominal pain. No diarrhea. She has moved her bowels and urinating normally today. Mother Related Data Home Medications ?Medication ?Instructions ?Recorded ?Confirmed amoxicillin 875 mg-potassium 1 tab PO BID 12/11/21 clavulanate 125 mg tablet ascorbic acid (vitamin C) 500 mg 500 mg PO DAILY 12/11/21 chewable tablet (Vitamin C) aspirin 325 mg tablet 325 mg PO DAILY 12/11/21 cholecalciferol (vitamin D3) 25 25 mcg PO DAILY 12/11/21 mcg (1,000 unit) tablet clobazam 10 mg tablet 10 mg PO BEDTIME 12/11/21 estradiol 14 mcg/24 hr weekly 1 patch topical QWEEK 12/11/21 transdermal patch (Menostar) ferrous sulfate 325 mg (65 mg 325 mg PO DAILY 12/11/21 iron) tablet (FeroSul) lamotrigine 100 mg tablet mg PO 12/11/21 lamotrigine 25 mg tablet,extended 0 mg PO BID PRN 12/11/21 release 24 hr levothyroxine 50 mcg tablet 50 mcg PO DAILY 12/11/21 omeprazole 40 mg capsule,delayed 40 mg PO DAILY 12/11/21 release oxcarbazepine 150 mg tablet 300 mg PO BID 12/11/21 progesterone micronized 100 mg 100 mg PO BEDTIME 12/11/21 capsule sodium chloride 1,000 mg soluble 2,000 mg PO DAILY 12/11/21 tablet Previous Rx's ?Medication ?Instructions ?Recorded clindamycin HCl 300 mg capsule 300 mg PO TID 7 days #21 caps 04/23/25 (Cleocin HCl) oxycodone 5 mg/5 mL oral solution 5 mg (5 mL) PO Q8H PRN pain #100 mL 04/23/25 ondansetron 4 mg disintegrating 4 mg PO Q8H PRN nausea and 10/22/25 tablet vomiting #7 tabs Allergies Allergy/AdvReac Type Severity Reaction Status Date / Time carbamazepine (From Tegretol) Allergy Unknown Verified 06/14/25 17:47 zonisamide (From Zonegran) Allergy Unknown Verified 06/14/25 17:48 [facility] Social History Social History Patient Tobacco Use Status: Never used Tobacco Advance Directives: Yes Advance Directives on File: Yes Advance Directives Date on File: 04/23/25 Patient : No Physical Exam ED Exam Exam: EXAM: Gen: Alert, awake, well appearing, well hydrated. Head: Atraumatic Eyes: Anicteric, Normal conjunctiva. ENT: Moist mucosa, no pallor. ?Slightly dry cracked lips. Good view with tongue depressor of the posterior oropharynx with no exudates, swelling. Midline uvula no soft palate protuberance or suggestion of STAFF COMMAND AND CONTROL OFFICER. Neck is supple no stridor or abnormal phonation Neck: Supple. Skin: ?No observable rash or bruising on exposed or examined skin Respiratory: Breathing comfortably, No distress.Clear to auscultation bilaterally, symmetric chest expansion, No wheeze, rales, ronchi. Cardiovascular: Regular rate and rhythm. No murmurs or rub. Well perfused periphery, warm extremities. No edema. ? Abdominal: No focal tenderness. Soft, no objective distension. No palpable masses or obvious organomegaly. ?No guarding, no rebound tenderness or other peritoneal findings. : No flank tenderness. Neuro: Alert. Gross movement of all extremities intact. ? Psych: Calm. Cooperative. MSK: No grossly visible deformity. Vital signs: See flowsheet Vital Signs: Vital Signs - 24 hr 06/14/25 17:44 06/14/25 22:00 06/14/25 22:25 Temperature 98.3 F 98.0 F 98.0 F Pulse Rate 106 H 91 91 Respiratory Rate 20 20 20 Blood Pressure 106/65 112/81 112/81 Pulse Oximetry 95 100 100 Oxygen Delivery Method Room Air Room Air Room Air BMI result Body Mass Index 28.0 Course Course Course Narrative: This is a Rapid Medical Examination (RME) performed by Joselito De La Paz PA-C in triage. Full HPI, ROS, assessment and treatment plan per primary provider in the Main ED. Hx: 34 yo F here w/ sore throat and vomiting since last night. Plan: labs, viral/strep swabs Medications Administered Discontinued Medications Generic Name Dose Route Start Last Admin Trade Name Paulo PRN Reason Stop Dose Admin Ibuprofen 400 mg 06/14/25 21:37 06/14/25 22:10 Ibuprofen Oral Susp 100 Mg/5 Ml Oral.Susp PO 06/14/25 21:38 Not Given ONCE ONE Ondansetron HCl 4 mg 06/14/25 21:37 06/14/25 22:08 Ondansetron Odt 4 Mg Tab.Rapdis TRANSLINGU 06/14/25 21:38 4 mg ONCE ONE Administration Medical Decision Making Medical Decision Making MDM Narrative: Medical Decision Making: [age] female with complicated medical history. Mainly presented for an episode of vomiting decreased p.o. intake today. She complained of sore throat. Viral testing and strep is negative. Throat not suggestive of acute bacterial infection. She may have acute viral syndrome, viral process viral pharyngitis or gastroenteritis. Maybe food-borne illness. Abdomen is soft nontender she looks euvolemic. She tolerated at least 1 L of water in the ED. Initially slightly tachycardic afebrile labs reassuring. Discharge with Z p.o. Zofran as needed Preliminary Favored Differential Diagnosis: URI, pharyngitis, strep throat, gastroenteritis, food-borne illness, dehydration, electrolyte derangement among additional considered etiologies Testing Interpreted Independently: ?See below for details Radiology or Lab testing Results Reviewed: ?See below for details Consults: ?See below for details Independent Historians/External Chart Reviews: ?See below for details Social Determinants of Health Impacting MDM/Planning: ?See below for details Lab Data 06/14/25 17:58 06/14/25 17:58 Labs: Lab Results 06/14/25 Range/Units 17:58 WBC 6.9 (4.8-10.8) X10*3/uL RBC 4.79 (4.20-5.50) X10*6/uL Hgb 14.5 (12.0-16.0) g/dl Hct 43.9 (37.0-47.0) % MCV 91.6 (80.0-98.0) fL MCH 30.3 (27.0-33.0) pg MCHC 33.0 (31.0-35.0) g/dl RDW 13.4 (11.0-16.0) % Plt Count 272 (160-400) X10*3/uL MPV 10.5 (9.4-12.3) fL Immature Gran % (Auto) 0.4 (0.0-0.4) % Neut % (Auto) 64.0 (45-73) % Lymph % (Auto) 22.8 (20-40) % [place] % (Auto) 8.6 (2-11) % Eos % (Auto) 3.6 (0-4) % Baso % (Auto) 0.6 (0-2) % Lymph # (Auto) 1.6 (1.2-4.9) X10*3/uL [place] # (Auto) 0.6 (0.1-1.2) X10*3/uL Eos # (Auto) 0.3 (0.0-0.4) X10*3/uL Baso # (Auto) 0.0 (0.0-0.2) X10*3/uL Abs Immat Gran (auto) 0.03 (0.00-0.03) X10*3/uL Absolute Neuts (auto) 4.4 (2.0-8.3) x10*3/uL Absolute Nucleated RBC 0.000 (0.0-0.012) X10*3/uL Nucleated RBC % (auto) 0.0 (0.0-0.2) /100WBC Sodium 140 (135-145) mmol/L Potassium 3.8 (3.3-5.1) mmol/L Chloride 108 (96-108) mmol/L Carbon Dioxide 21 L (22-29) mmol/L Anion Gap 15 (12-20) BUN 7 L (9-16) mg/dL Creatinine 0.53 (0.5-1.4) mg/dL Estim Creat Clear Calc 102.9 Estimated GFR > 60 Random Glucose 91 (60-115) mg/dL Calcium 9.0 (8.4-10.2) mg/dL Magnesium 1.8 (1.6-2.6) mg/dL Total Bilirubin 0.8 (0.0-1.0) mg/dL AST 61 H (5-31) U/L ALT 49 H (0-31) U/L Alkaline Phosphatase 70 (39-117) U/L Total Protein 7.0 (6.5-8.0) g/dL Albumin 3.9 (3.5-5.0) g/dL COVID-19 (FEDE) Negative (Negative) COVID-19 Clin Com See Note Influenza Type A (CECIL) Negative (Negative) Influenza Type B (CECIL) Negative (Negative) Influenza A & B Note See Note S. pyogenes GrpA CECIL Negative (Negative) Discharge Plan Discharge Clinical Impression: Dehydration Patient Disposition: Home, Self-Care Instructions: Abdominal Pain (ED) Additional Instructions: DISCHARGE DIAGNOSES: Vomiting, 1 episode and sore throat HISTORY OF PRESENTATION: ?Vomiting and sore throat EMERGENCY DEPARTMENT COURSE,TESTS, TREATMENTS: While in the ED today a your child had reassuring blood work vital signs. There was no suggestion of acute bacterial or serious intra-abdominal infection. She tolerated water. We did give the patient Zofran and ibuprofen. DISCHARGE MEDICATIONS: ?[We have made no changes to your regular medication regimen] a few tablets of as needed oral dissolving Zofran a nausea medicine can be given 30 minutes prior to trial of solid foods FOLLOW-UP: ?Call your primary or general physician soon as possible to discuss your symptoms, your ED visit and to discuss follow up plans Call the PCP tomorrow morning to discuss the symptoms INSTRUCTIONS ?& RETURN PRECAUTIONS: If any symptoms change first call your primary physician, if it is after-hours your primary doctors office should have a provider front office java developer you can speak with. If the symptoms are severe or very concerning to you then call 911 or return to the ED. Return if she has intractable vomiting or unable to eat or drink beyond 24 hours. Donavan Watson MD Emergency Physician [facility] Prescriptions: New ondansetron 4 mg tablet,disintegrating 4 mg PO Q8H PRN (Reason: nausea and vomiting) Qty: 7 0RF No Action clindamycin HCl [Cleocin HCl] 300 mg capsule 300 mg PO TID 7 Days Qty: 21 0RF oxycodone 5 mg/5 mL solution 5 mg PO Q8H PRN (Reason: pain) Qty: 100 0RF Rx Instructions: Partial Fill upon patient request. ferrous sulfate [FeroSul] 325 mg (65 mg iron) tablet 325 mg PO DAILY ascorbic acid (vitamin C) [Vitamin C] 500 mg tablet,chewable 500 mg PO DAILY amoxicillin-pot clavulanate 875-125 mg tablet 1 tab PO BID omeprazole 40 mg capsule,delayed release(DR/EC) 40 mg PO DAILY lamotrigine 100 mg tablet PO Menostar 14 mcg/24 hr patch weekly 1 patch topical QWEEK clobazam 10 mg tablet 10 mg PO BEDTIME cholecalciferol (vitamin D3) 25 mcg (1,000 unit) tablet 25 mcg PO DAILY oxcarbazepine 150 mg tablet 300 mg PO BID levothyroxine 50 mcg tablet 50 mcg PO DAILY lamotrigine 25 mg tablet extended release 24hr 0 mg PO BID PRN progesterone micronized 100 mg capsule 100 mg PO BEDTIME sodium chloride 1,000 mg tablet,soluble 2,000 mg PO DAILY aspirin 325 mg tablet 325 mg PO DAILY Stand Alone Forms: Work/School Release Interventions: ED Discharge Assessment Last Done: 06/14/25 22:25 Discharge Date/Time: 06/14/25 22:26 Print Language: Chinese
[2025-06-14 18:06] LABS: MANUAL DIFF FLAG NO
[2025-06-14 18:25] LABS: COVID-19 Test Negative (Negative); IDNOW Serial# 08D9AD1C; IDNOW Serial# 6674DD1D; Influenza B2 Negative (Negative)
[2025-06-14 18:28] LABS: IDNOW Serial# 55D5AD1C; Strep A Nucleic Acid Negative (Negative)
[2025-06-14 18:36] LABS: Alanine Aminotransferase 49 U/L (0-31); Albumin Level 3.9 g/dL (3.5-5.0); Alkaline Phosphatase 70 U/L (39-117); Anion Gap 15 (12-20); Aspartate Amino Transferase 61 U/L (5-31); Blood Urea Nitrogen 7 mg/dL (9-16); Calcium 9.0 mg/dL (8.4-10.2); Carbon Dioxide 21 mmol/L (22-29); Chloride 108 mmol/L (96-108); Creatinine Clr Calc Pharmacy 102.9; Estimated Glomerular Filt Rate > 60; Magnesium 1.8 mg/dL (1.6-2.6); Potassium 3.8 mmol/L (3.3-5.1); Sodium 140 mmol/L (135-145); Total Protein 7.0 g/dL (6.5-8.0)
[2025-06-14 18:40] LABS: Hematocrit 43.9 % (37.0-47.0); Hemoglobin 14.5 g/dl (12.0-16.0); Imm Gran Abs Auto 0.03 X10*3/uL (0.00-0.03); Imm Gran Pct Auto 0.4 % (0.0-0.4); Lymphocytes Absolute Auto 1.6 X10*3/uL (1.2-4.9); Mean Corpuscular HGB Conc 33.0 g/dl (31.0-35.0); Mean Corpuscular Hemoglobin 30.3 pg (27.0-33.0); Mean Corpuscular Volume 91.6 fL (80.0-98.0); NRBC Abs Auto 0.000 X10*3/uL (0.0-0.012); NRBC Pct Auto 0.0 /100WBC (0.0-0.2); Platelet Count 272 X10*3/uL (160-400); Red Blood Count 4.79 X10*6/uL (4.20-5.50); White Blood Count 6.9 X10*3/uL (4.8-10.8)
[2025-06-14 22:00] VITALS: BP 112/81; PULSE 91; RESP 20; TEMP 36.7; O2SAT 100
--- NOTE | 2025-06-14 22:20 | PC.NURSE ---
PT denied any pain at this time, ibuprofen withheld and tolerated zofran well.
[2025-06-14 22:25] VITALS: BP 112/81; PULSE 91; RESP 20; TEMP 36.7; O2SAT 100
--- OUTSIDE RECORDS SUMMARY | 2025-06-14 22:46 | XMS_ITS | Encounter Summary ---
Author Organization [facility] Address [address] [place] [address] Care Team Providers Care Fire Engine Operator Name Role Phone Sid Jo MD Primary Care Provider [phone] Reason for Visit * Reason Onset Date Comments Forms/questionnaires 06/12/2025 Encounter Details Date Type Department Care Team (Late st Contact Info) Description 06/12/2025 Telephone Adult Medicine [address] [phone] Sid Jo MD [address] [place] [address] Social History Tobacco Use Types Packs/Day Years [...] Record ed Within the last 3 months, garrett coronado many times did you visit the emergency [...] care for your loved ones. For example, teacher early childhood development or elderly care for an older adult? [...] Date Recorded What is your living situation? Unrecognized valu e 04/12/2025 Interpersonal Safety Answer Date Record ed Physical Abuse Unrecognized value 04/07/2025 Verbal Abuse Unrecognized value 04/07/2025 Comments Unknown Sex and Gender Information [...] documented in this encounter Progress Notes * Norah Dickinson - 06/12/2025 11:29 AM EDT Patient mother called wanting to know when was the last time or if her daughter ever had gotten a pneumonia vaccines. documented in this encounter Plan of Treatment Upcoming Encounters Date Type Department Care Team (Late st Contact Info) Description 07/06/2025 8:20 AM EST Office Visit [address] [phone] Andres Pisano MD [address] [place] [address] 12/07/2025 8:30 AM EDT Office Visit Adult Medicine [address] [phone] Sid Jo MD [address] [place] [address] documented as of this encounter Visit Diagnoses Not on filedocumented in this encounter Care Teams Fire Engine Operator Relationship Specialty Start Date End Date Sid Jo MD [address] [place] [address] PCP - General Internal Medicine 06/29/24 documented as of this encounter
--- OUTSIDE RECORDS SUMMARY | 2025-06-14 22:46 | XMS_ITS | Encounter Summary ---
Author Organization [facility] Address [address] [place] [address] Care Team Providers Care Header Boss Name Role Phone Sid Jo MD Primary Care Provider [phone] Encounter Details Date Type Department Care Team (Late st Contact Info) Description 06/12/2025 Telephone Adult Medicine [facility] [address] [place] [address] Sid Jo MD [address] [place], [place] Social History Tobacco Use Types Packs/Day [...] for your loved ones. For example, child psychiatrist or elderly care for an older adult? [...] of Assessment Author Yes 10/15/2024 2:00 AM Ailyn Bautista RN documented as of this encounter Mental Status * Because of a physical, mental, or emotional condition, do you have serious difficulty concentrating, remembering, or making decisions? (5 years old or older) Answer Entry Date Author Yes 10/15/2024 2:00 AM Betty Bautista RN documented in this encounter Plan of Treatment Upcoming Encounters Date Type Department Care Team (Late st Contact Info) Description 07/06/2025 8:20 AM EST Office Visit [address] [phone] Andres Pisano MD [address] [place] [address] 12/07/2025 8:30 AM EDT Office Visit Adult Medicine [address] [phone] Sid Jo MD [address] [place] [address] documented as of this encounter Visit Diagnoses Not on filedocumented in this encounter Care Teams Header Boss Relationship Specialty Start Date End Date Sid Jo MD [address] [place] [phone] PCP - General Internal Medicine 06/29/24 documented as of this encounter
--- OUTSIDE RECORDS SUMMARY | 2025-06-14 22:46 | XMS_ITS | Encounter Summary ---
Author Organization [facility] Address [address] [place] [address] Care Team Providers Care Fire Alarm Technician Name Role Phone Sid Jo MD Primary Care Provider [phone] Reason for Visit * Reason Onset Date Comments Vomiting 06/14/2025 Postcoital Mucus Check 06/14/2025 Encounter Details Date Type Department Care Team (Late st Contact Info) Description 06/14/2025 Nurse Triage Adult Medicine [address] [phone] Sid Jo MD [address] [place] [address] Social History Tobacco Use Types Packs/Day Years [...] care for your loved ones. For example, summer child caregiver or elderly care for an older adult? [...] documented in this encounter Progress Notes * Tonya Vazquez RN - 06/14/2025 4:59 PM EDT He was advised to take her to the ER for further evaluation and treatment. He is in agreement with this plan and states she will go to [facility] ER. Reason for Disposition [1] Drinking very little AND [2] dehydration suspected (e.g., no urine > 12 hours, very dry mouth, very lightheaded) Answer Assessment - Initial Assessment Questions 1. VOMITING SEVERITY: How many times have you vomited in the past 24 hours? 4 times 2. ONSET: When did the vomiting begin? Last night at 8:30 pm 3. FLUIDS: What fluids or food have you vomited up today? Have you been able to keep any fluids down? No 4. ABDOMEN PAIN: Are your having any abdomen pain? If Yes : How bad is it and what does it feel like? (e.g., crampy, dull, intermittent, constant) No 5. DIARRHEA: Is there any diarrhea? If Yes, ask: How many times today? No 6. CONTACTS: Is there anyone else in the family with the same symptoms? No 7. CAUSE: What do you think is causing your vomiting? Unknown 8. HYDRATION STATUS: Any signs of dehydration? (e.g., dry mouth [not only dry lips], too weak to stand) When did you last urinate? Yes 9. OTHER SYMPTOMS: Do you have any other symptoms? (e.g., fever, headache, vertigo, vomiting blood or coffee grounds, recent head injury) No 10. : Is there any chance you are ? When was your last menstrual period? No. She does not get a period. Protocols used: [id number] * Norah Alok - 06/14/2025 4:52 PM EDT Patient call requires triage: Symptoms patient is presenting: throwing up mucus, sore throat, not eating, sleeping a lot. How long has patient had these symptoms?: 06/13/25 For ALL patients calling to schedule any appointment (routine, sick visit, follow up, consult, etc.) in the outpatient setting please ask the following questions: Do you have fever of higher than 101, sore throat with difficulty swallowing or severe shortness ofbreath? no If YES to any of these above symptoms, send a message to triage and do not book. Red dot. If no, an audio or video visit should be booked. Have you had close contact with someone with Coronavirus in the last 14 days? no Have you traveled abroad? no Have you traveled recently to another state outside of [place], [place], [place], [place], [place], [place], [place]? no o If yes, did you quarantine for 14 days or have a negative covid test? no If yes to any of the above, patient is not to be scheduled in office until after 14 day quarantine or negative covid test. If pain or injury related was it due to an accident at work or from a motor vehicle accident? If yes, date of accident/Injury: No If yes, gather 3rd republican insurance information [employer] Party Information: not applicable PCP: Sid Jo MD Payor: MEDICARE / Plan: MEDICARE PART A & B / Product Type: Medicare / documented in this encounter Plan of Treatment Upcoming Encounters Date Type Department Care Team (Late st Contact Info) Description 07/06/2025 8:20 AM EST Office Visit [address] [phone] Andres Pisano MD [address] [place] [address] 12/07/2025 8:30 AM EDT Office Visit Adult Medicine [address] [phone] Sid Jo MD [address] [place] [address] documented as of this encounter Visit Diagnoses Not on filedocumented in this encounter Care Teams Fire Alarm Technician Relationship Specialty Start Date End Date Sid Jo MD [address] [place] [address] PCP - General Internal Medicine 06/29/24 documented as of this encounter
--- OUTSIDE RECORDS SUMMARY | 2025-06-14 22:46 | XMS_ITS | Encounter Summary ---
Author Organization [facility] Address [address] [place] [address] Care Team Providers Care Equine Vet Name Role Phone Sid Jo MD Primary Care Provider [phone] Encounter Details Date Type Department Care Team (Late st Contact Info) Description 05/22/2025 Results Follow-Up Adult Medicine [address] [phone] Sid Jo MD [address] [place] [address] Social History Tobacco Use Types Packs/Day Years [...] care for your loved ones. For example, childcare director or elderly care for an older adult? [...] of Assessment Author No 10/15/2024 2:00 AM Betyt Bautista RN * Do you have serious [...] Description 07/06/2025 8:20 AM EST Office Visit Endocrinology [address] [phone] Andres Pisano MD [address] [place] [address] 12/07/2025 8:30 AM EDT Office Visit Adult Medicine [address] [phone] Sid Jo MD [address] [place] [address] documented as of this encounter Visit Diagnoses Not on filedocumented in this encounter Care Teams Equine Vet Relationship Specialty Start Date End Date Sid Jo MD [address] [place] [address] [place] [address] PCP - General Internal Medicine 06/29/24 documented as of this encounter
--- OUTSIDE RECORDS SUMMARY | 2025-06-14 22:46 | XMS_ITS | Encounter Summary ---
Author Organization [facility] Address [address] [place] [address] Care Team Providers Care Customer Engineer Name Role Phone Sid Jo MD Primary Care Provider [phone] Reason for Visit * Reason Onset Date Comments Immunizations 06/05/2025 Encounter Details Date Type Department Care Team (Late st Contact Info) Description 06/05/2025 Telephone Adult Medicine [address] [phone] Sid Jo MD [address] [place] [address] Social History Tobacco Use Types Packs/Day Years [...] your loved ones. For example, child care attendant school or elderly care for an older adult? [...] documented in this encounter Progress Notes * Jaclyn Pretty - 06/05/2025 4:36 PM EDT Patient's mother is calling and needs to know if and when the patient had a pneumonia shot. She wanted to have the patient get one at [facility]. Please review and call mom. documented in this encounter Plan of Treatment Upcoming Encounters Date Type Department Care Team (Late st Contact Info) Description 07/06/2025 8:20 AM EST Office Visit Endocrinology [address] [phone] Andres Pisano MD [address] [place] [address] 12/07/2025 8:30 AM EDT Office Visit Adult Medicine [address], [place] [phone] Sid Jo MD [address] [place], [place] documented as of this encounter Visit Diagnoses Not on filedocumented in this encounter Care Teams Customer Engineer Relationship Specialty Start Date End Date Sid Jo MD [address] [place] [address] PCP - General Internal Medicine 06/29/24 documented as of this encounter
--- OUTSIDE RECORDS SUMMARY | 2025-06-14 22:47 | XMS_ITS | Clinical Summary ---
Author Organization [facility] [address] [place] [address] [place] [address] Phone Care Team Providers Care Skein Straightener Name Role Phone Sid Jo MD Primary Care Provider Allergies Active Allergy Reactions Criticality Noted Date [...] by mouth 2 (two) times a day. 4 Active lamoTRIgine (LaMICtal) 100 mg tablet Take 1 tablet (100 mg total) by mouth 2 (two) times a day. 3 Active lamoTRIgine (LaMICtal) 25 mg tablet Take 1 tablet (25 mg total) by mouth 2 (two) times a day. 3 Active ascorbic acid (VITAMIN C) 500 mg chewable tablet Chew 2 tablets (1,000 mg total) 1 (one) time each day. 2 Active levothyroxine (SYNTHROID, LEVOTHROID) 50 mcg tabletIndicatio ns:Hypothyroidi sm, unspecified type Take 1 tab daily 6 days a week 234 tablet 3 4 Active Additional Information Patient taking differently: 50 mcg oral Every morning before breakfast, THURSDAY-THURSDAY ONLY, SKIP THURSDAY, Reported on 04/17/2025 cloBAZam (ONFI) 10 mg tablet TAKE 1 TABLET BY MOUTH AT BEDTIME 90 tablet 5 Active Additional Information Patient taking differently: 10 mg oral Nightly, Reported on 05/19/2025 OXcarbazepine (TRILEPTAL) 150 mg tablet Take 1 tablet (150 mg total) by mouth 1 (one) time each day. 5 026 Active OXcarbazepine (TRILEPTAL) 300 mg tablet Take 1 tablet (300 mg total) by mouth at bedtime. 5 026 Active diphenhydramine -aluminum-magne sium-simethicon e-lidocaine (MAGIC MOUTHWASH) [id number] 00 mg/30 mL liquid suspension Use 10 mL in the mouth or throat 4 (four) times a day. 5 Active Additional Information Patient not taking.Reported on 05/19/2025 buffered aspirin (BUFFERIN) 325 mg tablet Take 1 tablet (325 mg total) by mouth 1 (one) time each day. Active atorvastatin (LIPITOR) 80 mg tablet Take [...] Max Daily Amount: 1.5 mg 20 each 5 Active lacosamide (VIMPAT) 50 mg tablet Take 1 tablet (50 mg total) by mouth 2 (two) times a day. Max Daily Amount: 100 mg 60 tablet 5 Active Additional Information Patient not taking.Reported on 04/17/2025 levETIRAcetam (KEPPRA) 750 mg tablet Take 1 tablet (750 mg total) by mouth 2 (two) times a day. 60 each 5 Active pantoprazole (PROTONIX) 40 mg EC tablet Take 1 tablet (40 mg total) by mouth 2 (two) times a day. 180 tablet 1 5 Active ferrous sulfate 325 mg (65 mg iron) EC tablet Take 1 tablet (325 mg total) by mouth 1 (one) time each day with breakfast. Do not crush, chew, or split. 90 tablet 1 5 Active ferrous sulfate 325 mg (65 mg iron) EC tablet Take 1 tablet (325 mg total) by mouth 3 (three) times a day with meals. Do not crush, chew, or split. 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) 11/03/19 Overview (05/24/2024): Offered growth hormone 10/29 Hepatitis 03/23/2007 Overview (05/24/2024): mild, assoc's with transient elevation of ammonia, while on depakote, detected during hospitalization [address] cheung, possible liver bx 03/30 - mild changes, non-specific - monitor q 6 mos [address] enzymes [address] cheung IMO update Allergic rhinitis 06/19/2006 Overview (05/24/2024): +RAST dust mites 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): , secondary to pathologic fractures, neurofibromatosis Malignant neoplasm of brain ([facility] V24, [facility] V28) 06/19/2006 Overview (05/24/2024): followed by dr zamora and oncology yearly PDD (pervasive developmental disorder) 6 Hypothyroidism 06/19/2006 Overview (05/24/2024): on synthroid Hypopituitarism ([facility] V24) 06/19/2006 Overview (05/24/2024): delayed puberty, followed by dr weinstein, on estrogen patch and provera cycling Consult MANAGER PLAY- Dr Nieves 04/01, pelvic ultrasound and 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 She agreed. Intractable epilepsy (CMS/HCC V24, [facility] V28) 05/04/2006 Overview (05/24/2024): Previously followed by dr malagon, at transfer to Dr Watts was on Dilantin and Phenobarb, care transferred to dr fareed watts 12/28 (Adult Nerurology at [facility]), switch to dr trevino 05/01, dr [...] 07/30 Neurofibromatosis (CMS/HCC V24, CMS/HCC V28) 06/2006 Encounters Date Type Department Care Team Description 06/14/2025 Nurse Triage Adult Medicine [address] [phone] Sid Jo MD 06/12/2025 Telephone Adult Medicine [address] [phone] Sid Jo MD 06/12/2025 Telephone Adult Medicine [address] [phone] Sid Jo MD 06/05/2025 Telephone Adult Medicine [address] [phone] Sid Jo MD 05/25/2025 Telephone Adult Medicine [address] [phone] Sid Jo MD 05/22/2025 Results Follow-Up Adult Medicine [address] [phone] Sid Jo MD 05/19/2025 9:50 AM EDT - 05/19/2025 11:59 PM EDT Hospital Encounter [address] [phone] Rib pain on right side Discharge Disposition: Home or Self Care 05/19/2025 9:00 AM EDT Office Visit Adult [address] [phone] Sid Jo MD Routine physical examination (Primary Dx); High cholesterol; Hyponatremia; Hypothyroidism, unspecified type; Need for prophylactic vaccination and inoculation against influenza; Rib pain on right side; Late effect of cerebrovascular accident (CVA); Intractable epilepsy without status epilepticus, unspecified epilepsy type (CMS/HCC V24, CMS/HCC V28); Mild intellectual disability; Recurrent seizures (CMS/HCC V24, CMS/HCC V28) 04/28/2025 Telephone Adult Medicine [address] [phone] Sid Jo MD 04/21/2025 11:29 AM EDT - 04/21/2025 1:43 PM EDT Emergency [facility] [address] [place] [address] Aphthous ulcer (Primary Dx) Discharge Disposition: Home or Self Care 04/20/2025 Telephone Adult [address] [phone] Selene Dorsey MA 04/17/2025 1:30 PM EDT Office Visit Adult [address] [phone] Sid Jo MD Recurrent seizures (CMS/HCC V24, CMS/HCC V28) (Primary Dx); Anemia, unspecified type; Gastroesophageal reflux disease, unspecified whether esophagitis present 04/11/2025 Telephone Adult Medicine [address] [phone] Selene Dorsey MA 04/07/2025 6:44 PM EDT - 04/11/2025 2:12 PM EDT Hospital Encounter [facility] [address] [place] [address] Hemalatha Cardoso MD Hewan, MD Krishan Sanchez Gagandeep, MD Udit, Chitreaka, MD Seizure ([facility] V24, [facility] V28) (Primary Dx) Discharge Disposition: Home or Self Care 04/04/2025 9:58 AM EDT - 04/07/2025 5:46 PM EDT Hospital Encounter [facility] [address] [place] [phone] Wendie Cooper MD Bukalo, Nermina, MD Nasser, Nada S, MD Status epilepticus ([facility] V24, [facility] V28) (Primary Dx); Seizure secondary to subtherapeutic anticonvulsant medication ([facility] V24, [facility] V28); Hyponatremia; Recurrent seizures ([facility] V24, [facility] V28) Discharge Disposition: Short Term Hospital from Last 3 Months Immunizations Immunization Administration Dates Next Due COVID-19 (Pfizer/Comirnaty) 12yo and older 06/24/2024 DTP 01/27/1990,1988 DTaP (Infanrix) 6wks to less than 7yo 07/10/1993 [id number] (Pentacel) 2mo to less than 5yo 01/27/1990 [...] 3 years and older 06/18/2024 Influenza trivalent, MDCK, 0 .5mL, preservative free (Flucelvax) 6mo and older 05/19/2025 Influenza trivalent, with pr eservative (Fluzone; Afluria) 6mo and older 06/26/2016,05/23/2015,06/09/2014,05/30,07/30/2011,06/27/2010,06/21/2008 ,06/23/2007,07/21/2006,05/20/2005 MMR, measles mumps and rubel la Live (Priorix; M-M-R II) 12mo and older 06/19/1999,10/08/1989 Meningococcal MCV4P 06/19/2006 OPV 07/10/1993, 0,1988,09/19 [employer] SARS-CoV-2 COVID-19, mRNA, LNP-S, preservative free 08/22/2021,01/23/2021 Td Tetanus diptheria (Tdvax) 7yo and older 11/19/2017,12/10/2000 Tdap Tetanus diptheria acell ular pertussis (Boostrix; Adacel) 7yo and older 03/18/2011,06/23/2007 Varicella live (Varivax) 12m o and older 1989 Surgical History Surgery Date Site/Laterality Comments OTHER SURGICAL HISTORY 1994 PROCEDURE: HISTORICAL BELOW KNEE AMP; COMMENT: secondary to to pathological fracture OTHER SURGICAL HISTORY 2005 PROCEDURE: OR INJECTION AA&/STRD VAGUS NERVE; COMMENT: vagus nerve stimulator, again in 2019 ESOPHAGOGASTRODUODENOSCOPY 05/21/2021 PROCEDURE: OR EGD TRANSORAL BIOPSY SINGLE/MULTIPLE; COMMENT: Grade C [...] disorder, not elsewhere classified; COMMENT[facility] and Respirdal Other specified [...] Anemia DX:Anemia CVA (cerebral vascular accid ent) ([facility] V24, [facility] V28) Hypothyroid Hypopituitarism ([facility] V24) ACTH deficiency ([facility] V24) GERD (gastroesophageal reflu x disease) Hyperlipidemia Legally blind Hearing loss Growth hormone deficiency ([facility] V24) Hyponatremia Family History Medical History Relation Name Comments Drug abuse Brother 1 +heroin Prostate cancer Father HTN Other: calciphylaxis Maternal Grandfather Heart attack Maternal Grandmother diabete s, COPD, HTN Hypertension Mother osteoporosis Heart attack Paternal Grandfather Breast cancer Neg Hx Colon cancer Neg Hx Ovarian cancer Neg Hx Uterine cancer Neg Hx Relation Name Status Comments Brother 1 Alive Yves Manjarrez Brother 2 Alive Rosales Alegre 01/16 Father Alive Kamari Manjarrez Maternal Grandfather Maternal Grandmother Alive Mother Alive [...] your loved ones. For example, child care provider or elderly care for an older adult? [...] Sign Reading Time Taken Comments Blood Pressure 98/62 05/19/2025 8:48 AM EDT Pulse 76 05/19/2025 8:48 AM EDT Temperature 36.5 C (97.7 F) 05/19/2025 8:48 AM EDT Respiratory Rate 16 05/19/2025 8:48 AM EDT Oxygen Saturation 96% 05/19/2025 8:48 AM EDT Inhaled Oxygen Concentration - - Weight 58.2 kg (128 lb 4.8 oz) 05/19/2025 8:48 A M EDT Height 142.2 cm (4' 8 ) 05/19/2025 8:48 AM EDT Body Mass Index 28.76 05/19/2025 8:48 AM EDT Plan of Treatment Upcoming Encounters Date Type Department Care Team (Late st Contact Info) Description 07/06/2025 8:20 AM EST Office Visit Endocrinology - [address] [phone] Andres Pisano MD [address] [place] [address] [place] 12/07/2025 8:30 AM EDT Office Visit Adult Medicine [facility] [address] [place] [address] Sid Jo MD [address] [place] [phone] Health Maintenance Due Date Last Done Comments Pneumococcal Vaccine: Pediatrics (0 to 5 Years) and At-Risk Patients (6 to 49 Years) (1 of 2 - PCV) 2007 Cervical Cancer Screening: Pap Smear 2009 HPV Vaccines (1 - Risk 3-dose SCDM series) 2015 HIV Screening 08/02/2022 Medicare Annual Wellness Visit 08/02/2022 Depression Screening 08/24/2024 05/11/2024 COVID-19 Vaccine (5 - Pfizer risk season) 2025 06/24/2024, 08/22/2021, 01/23/2021, Additional history exists Social Influencers of Health Screening 04/12/2026 04/12/2025 DTaP,Tdap,and Td Vaccines (10 - Td or Tdap) 11/20/2027 11/19/2017, 03/18/2011, 06/23/2007, Additional history exists Cholesterol Screening (Lipid Panel) 05/19/2030 05/19/2025, 05/12/2024, 05/12/2024 RSV Immunization Adult Patients (1 - 1-dose 75+ series) 2063 Varicella Vaccines Aged Out 1989 No longer eligible based on patient's age to complete this topic HIB Vaccines Completed 01/27/1990, 01/27/1990 IPV Vaccines Completed 07/10/1993, 01/1990, 01/27/1990, Additional history exists MMR Vaccines Completed 06/19/1999, 10/08/1989 Hepatitis B Vaccines Completed 04/20/2001, 01/12/2001, 12/10/2000 Meningococcal ACWY Vaccine Completed 06/19/2006 Hepatitis C Screening Completed 02/27/2025 Influenza Vaccine Completed 05/19/2025, , 07/23/2023, Additional history exists Hepatitis A Vaccines Aged Out No long er eligible based on patient's age to complete this topic Meningococcal B Vaccine Aged Out No l onger eligible based on patient's age to complete this topic RSV Immunization Patients Under 20 months Aged Out No longer eligible based on patient's age to complete this topic Procedures Procedure Name Priority Date/Time Associated Diagnosis Comments XR RIBS W CHEST 3+ VIEWS RIGHT Routine 05/19/2025 10:00 AM EDT Rib pain on right side BASIC METABOLIC PANEL Routine 05/19/2025 9:45 AM EDT Hyponatremia LIPID PANEL WITH REFLEX TO DIRECT LDL Routine 05/19/2025 9:45 AM EDT High cholesterol THYROID STIMULATING HORMONE WITH REFLEX TO FREE T4 AND FREE T3 Routine 05/19/2025 9:45 AM EDT Hypothyroidism, unspecified type COMPREHENSIVE METABOLIC PANEL Routine 04/11/2025 10:32 AM [...] LEVEL Timed 04/04/2025 6:4 4 PM EDT [id number], RSV, FLU A AND B QUALITATIVE RT-PCR, INTERNAL LAB STAT 04/04/2025 1:28 PM EDT ECG 12-LEAD STAT 04/04/2025 11:02 AM EDT POCT GLUCOSE BLOOD Routine 04/04/2025 10 :48 AM EDT HCG, SERUM, QUALITATIVE STAT Add-on 04/04/2025 10:40 AM EDT CARBAMAZEPINE LEVEL, TOTAL STAT Add-on 04/04/2025 10:40 AM EDT CBC WITH AUTO DIFFERENTIAL STAT 04/04/2025 10:40 AM EDT PROLACTIN STAT 04/04/2025 10:40 AM EDT MAGNESIUM STAT 04/04/2025 10:40 AM EDT BASIC METABOLIC PANEL STAT 04/04/2025 10:40 AM EDT CBC AND DIFFERENTIAL STAT 04/04/2025 10:40 AM EDT OR CRITICAL CARE 30-74 MINUTES Routine 04/04/2025 9:57 AM EDT HEPATITIS C ANTIBODY Routine 02/27/2025 8:54 AM EDT Elevated liver enzymes HM DEPRESSION SCREENING Routine 05/11/2024 from Last 3 Months or Most Recently Relevant to Health Maintenance Results * XR Ribs w Chest 3+ Views Right (05/19/2025 10:00 AM EDT) Anatomical Region Laterality Modality Body Right Radiographic Roselyn ging 05/19/2025 12:4 4 PM EDT Impressions 05/19/2025 12:47 PM EDT No acute intrathoracic process. No displaced rib fractures. -------- FINAL REPORT -------- Dictated By: Dhaval Fish Dictated Date: 05/19/2025 12:44 ET Assigned Physician: Dhaval Fish Reviewed and Electronically Signed By: Dhaval Fish Signed Date: 05/19/2025 12:47 ET Workstation ID: [id number] Transcribed By: Self Edit Transcribed Date: 05/19/2025 12:44 ET Narrative 05/19/2025 12:47 PM EDT EXAMINATION: XR RIBS W CHEST 3+ VIEWS RIGHT 05/19/2025 9:50 AM Patient : 1990 CLINICAL DATA/INDICATIONS: right sided rib pain COMPARISON: None FINDINGS: 3 views of the chest and ribs demonstrate a normal cardiomediastinal silhouette. The lungs are clear. The osseous structures are intact. No displaced rib fractures. Procedure Note Dhaval Fish MD - 05/19/2025 EXAMINATION: XR RIBS W CHEST 3+ VIEWS RIGHT 05/19/2025 9:50 AM Patient :1990 CLINICAL DATA/INDICATIONS: right sided rib pain COMPARISON: None FINDINGS: 3 views of the chest and ribs demonstrate a normal cardiomediastinalsilhouette. The lungs are clear. The osseous structures are intact. Nodisplaced rib fractures. IMPRESSION: No acute intrathoracic process. No displaced rib fractures. -------- FINAL REPORT -------- Dictated By: Dhaval Fish Dictated Date: 05/19/2025 12:44 ET Assigned Physician: Dhaval Fish Reviewed and Electronically Signed By: Dhaval Fish Signed Date: 05/19/2025 12:47 ET Workstation ID: [id number] Transcribed By: Self Edit Transcribed Date: 05/19/2025 12:44 ET us Sid Jo MD IMG XR PROCEDURES Final Result * Thyroid stimulating hormone with reflex to free t4 and free t3 (05/19/2025 9:45 AM EDT) Pathologist [facility] TSH 1.01 0.40 - 4.00 mcIU/mL LAB CHEMISTRY METHOD 05/19/2025 5:17 PM EDT [facility] Blood Venous blood specimen / Unknown Venipuncture / Unknown 05/19/2025 9:45 AM EDT 05/19/2025 9:45 AM EDT us Sid Jo MD LAB BLOOD ORDERABLES Final Resu lt [facility] [address] [place] [address], [place] [phone] * Lipid panel with reflex to direct LDL (05/19/2025 9:45 AM EDT) Cholesterol 119 0 - 200 mg/dL LAB CHEMISTRY METHOD 05/19/2025 5:02 PM EDT [facility] Triglycerides 64 0 - 150 mg/dL LAB CHEMISTRY METHOD 05/19/2025 5:02 PM EDT [facility] HDL 63 >=40 mg/dL LAB CHEMISTRY METHOD 05/19/2025 5:02 PM EDT [facility] LDL Calculated 43 0 - 100 mg/dL LAB CHEMISTRY METHOD 05/19/2025 5:02 PM EDT [facility] Comment:Estimated LDL Calcul ated using equation: Total cholesterol - HDL cholesterol - (Triglycerides/5) VLDL Cholesterol Jose G 12.8 mg/dL LAB CHEMISTRY METHOD 05/19/2025 5:02 PM [facility] Non HDL Chol. (LDL+VLDL) 56 <145 mg/dL LAB CHEMISTRY METHOD 05/19/2025 5:02 PM EDT [facility] Chol/HDL Ratio 1.9 0.0 - 4.4 LAB CHEMISTRY METHOD 05/19/2025 5:02 PM EDT [facility] Blood Venous blood specimen / Unknown Venipuncture / Unknown 05/19/2025 9:45 AM EDT 05/19/2025 9:45 AM EDT us Sid Jo MD LAB BLOOD ORDERABLES Final Resu lt [facility] [address] [place] [address], * Basic metabolic panel (05/19/2025 9:45 AM EDT) Only the most recent of3 resultswithin the time period is included. Sodium 135 133 - 145 mmol/L LAB CHEMISTRY METHOD 05/19/2025 4:58 PM [facility] Potassium 3.5 3.5 - 5.5 mmol/L LAB CHEMISTRY METHOD 05/19/2025 4:58 PM [facility] Chloride 101 96 - 110 mmol/L LAB CHEMISTRY METHOD 05/19/2025 4:58 PM [facility] CO2 28 21 - 32 mmol/L LAB CHEMISTRY METHOD 05/19/2025 4:58 PM [facility] Anion Gap 6 3 - 11 LAB CHEMISTRY METHOD 05/19/2025 4:58 PM [facility] Glucose 88 70 - 100 mg/dL LAB CHEMISTRY METHOD 05/19/2025 4:58 PM [facility] BUN 6 5 - 25 mg/dL LAB CHEMISTRY METHOD 05/19/2025 4:58 PM EDT [facility] Creatinine 0.67 0.50 - 1.10 mg/dL LAB CHEMISTRY METHOD 05/19/2025 4:58 PM EDT [facility] eGFR 116 >=60 mL/min/1. 73m2 LAB CHEMISTRY METHOD 05/19/2025 4:58 PM EDT [facility] Comment:Calculation based on the Chronic Kidney Disease Epidemiology Collaboration (CKD-EPI) equation refit without adjustment for race. BUN/Creatinine Ratio 9.0 LAB CHEMISTRY METHOD 05/19/2025 4:58 PM EDT [facility] Calcium 9.1 8.5 - 10.5 mg/dL LAB CHEMISTRY METHOD 05/19/2025 4:58 PM EDT [facility] Blood Venous blood specimen / Unknown Venipuncture / Unknown 05/19/2025 9:45 AM EDT 05/19/2025 9:45 AM EDT us Sid Jo MD LAB BLOOD ORDERABLES Final Resu lt [facility] [address] [place] [address], [place] [phone] * Magnesium (04/11/2025 10:32 AM EDT) Only the most recent of4 resultswithin the time period is included. Magnesium 2.0 1.7 - 2.8 mg/dL LAB CHEMISTRY METHOD 04/11/2025 11:14 AM EDT [facility] Blood Venous blood specimen / Unknown Venipuncture / Unknown 04/11/2025 10:32 AM EDT 04/11/2025 10:40 AM EDT us Reggie Nickerson MD LAB BLOOD ORDERABLES Final Re sult [facility] [address] [place] [address], [place] [phone] * (ABNORMAL) Comprehensive metabolic panel (04/11/2025 10:32 AM EDT) Only the most recent of4 resultswithin the time period is included. Sodium 132(L) 135 - 145 mmol/L LAB CHEMISTRY METHOD 04/11/2025 11:14 AM EDT [facility] Potassium 3.6 3.5 - 5.1 mmol/L LAB CHEMISTRY METHOD 04/11/2025 11:14 AM EDT [facility] Chloride 98 98 - 107 mmol/L LAB CHEMISTRY METHOD 04/11/2025 11:14 AM EDT [facility] CO2 23(L) 24 - 32 mmol/L LAB CHEMISTRY METHOD 04/11/2025 11:14 AM EDT [facility] Anion Gap 11 5 - 14 LAB CHEMISTRY METHOD 04/11/2025 11:14 AM EDT [facility] Glucose 96 70 - 199 mg/dL LAB CHEMISTRY METHOD 04/11/2025 11:14 AM EDT [facility] BUN 12 7 - 17 mg/dL LAB CHEMISTRY METHOD 04/11/2025 11:14 AM [facility] Creatinine 0.50 0.50 - 1.00 mg/dL LAB CHEMISTRY METHOD 04/11/2025 11:14 AM EDT [facility] eGFR 125 >=60 mL/min/1. 73m2 LAB CHEMISTRY METHOD 04/11/2025 11:14 AM T [facility] Comment:Calculation based on the Chronic Kidney Disease Epidemiology Collaboration (CKD-EPI) equation refit without adjustment for race. BUN/Creatinine Ratio 24.0(H) 12.0 - 20.0 LAB CHEMISTRY METHOD 04/11/2025 11:14 AM [facility] Calcium 8.9 8.4 - 10.2 mg/dL LAB CHEMISTRY METHOD 04/11/2025 11:14 AM T [facility] AST (SGOT) 12 5 - 40 unit/L LAB CHEMISTRY METHOD 04/11/2025 11:14 AM EDT [facility] ALT (SGPT) 12 7 - 52 unit/L LAB CHEMISTRY METHOD 04/11/2025 11:14 AM EDT [facility] Alkaline Phosphatase 66 34 - 104 unit/L LAB CHEMISTRY METHOD 04/11/2025 11:14 AM EDT [facility] Total Protein 6.8 6.4 - 8.5 g/dL LAB CHEMISTRY METHOD 04/11/2025 11:14 AM EDT [facility] Albumin 3.7 3.5 - 5.0 g/dL LAB CHEMISTRY METHOD 04/11/2025 11:14 AM EDT [facility] Total Bilirubin 0.5 0.3 - 1.0 mg/dL LAB CHEMISTRY METHOD 04/11/2025 11:14 AM EDT [facility] Blood Venous blood specimen / Unknown Venipuncture / Unknown 04/11/2025 10:32 AM EDT 04/11/2025 10:40 AM EDT Leatha Aviles MD LAB BLOOD ORDERABLES Final Result [facility] [address] [place] [address], [place] [phone] * POCT Glucose, blood (04/11/2025 8:23 AM EDT) Only the most recent of21 resultswithin the time period is included. Glucose POCT 85 70 - 199 mg/dL 04/11/2025 8:23 AM EDT [facility] Comment: Fasting Reference Range: 70-99 mg/dL Non-Fasting Reference Range: 70-199 mg/dL Blood Capillary blood specimen / Unknown 04/11/2025 8:23 AM EDT 04/11/2025 8:24 AM EDT Reggie Nickerson MD LAB POINT OF CARE TE ST DOCKED DEVICE UNSOLICITED RESULTS Final Result [facility] [address] [place] [address], [place] [phone] * Continuous EEG (04/11/2025 7:05 AM EDT) [...] Manda Pineda MD, 325 mg at 04/10/25 0813 atorvastatin (LIPITOR) tablet 80 mg, 80 mg, oral, Nightly, Manda Pineda MD, 80 mg at 04/09/25 214 cloBAZam (ONFI) tablet 10 mg, 10 mg, oral, Nightly, Manda Pineda MD, 10 mg at 04/09/25 214 clonazePAM (KlonoPIN) tablet 0.5 mg, 0.5 mg, oral, TID PRN, Otto Duffy MD jhzolrcqrgbxavk-vvxdsicz-gprcvvbuz-simethicone-lidocaine (MAGIC MOUTHWASH) suspension, 10 mL, Mouth/Throat, 4x [...] daily, Otto Duffy MD, 500,000 Units at 04/10/251703 OXcarbazepine (TRILEPTAL) tablet 150 mg, 150 mg, oral, Daily, Manda Pineda MD, 150 mg at 04/10/25812 OXcarbazepine (TRILEPTAL) tablet 300 mg, 300 mg, oral, Nightly, Manda Pineda MD, 300 mg at 04/09/252140 pantoprazole (PROTONIX) EC tablet 40 mg, 40 [...] predominant Main term 2: Rhythmic delta activity (HARNESS REPAIRER) + Sharp (S) Prevalence: Occasional (1-9%) Duration: [...] seizures Sterling Hurtado MD Epileptologist/ Staff Neurologist [facility] us Leatha Aviles MD NEUROLOGY ORDERABLES Final Result [facility] * Continuous EEG (04/10/2025 6:07 AM EDT) [...] mg, oral, TID PRN, Otto Duffy MD osfzvtmluonkjtm-dommqupx-ubzokeusn-simethicone-lidocaine (MAGIC MOUTHWASH) suspension, 10 mL, Mouth/Throat, 4x daily, Manda iPneda MD, 10 mL at 04/10/25 1704 [START [...] Manda Pineda MD, 150 mg at 04/10/25 08 OXcarbazepine (TRILEPTAL) tablet 300 mg, 300 mg, [...] predominant Main term 2: Rhythmic delta activity (HARNESS REPAIRER) + Sharp (S) Prevalence: Occasional (1-9%) Duration: [...] encephalopathy Sterling Hurtado MD Epileptologist/ Staff Neurologist [facility] us Leatha Aviles MD NEUROLOGY ORDERABLES [...] Manda Pineda MD, 325 mg at 04/09/25 1009 atorvastatin (LIPITOR) tablet 80 mg, 80 mg, oral, Nightly, Manda Pineda MD, 80 mg at 04/08/251943 cloBAZam (ONFI) tablet 10 mg, 10 mg, oral, Nightly, Manda Pineda MD, 10 mg at 04/08/251943 gtvlojjgwbnhrtp-rkntmzcm-ykkzxfhjn-simethicone-lidocaine (MAGIC MOUTHWASH) suspension, 10 mL, Mouth/Throat, 4x daily, Manda Pineda MD, 10 mL at 04/09/251003 hydrocortisone sod succinate injection 50 mg, 50 mg, intravenous, q6h, Manda Pineda MD, 50 mg at 04/09/25 1009 lamoTRIgine (LaMICtal) tablet 100 mg, 100 mg, oral, BID, Manda Pineda MD, 100 mg at 04/09/25 100 lamoTRIgine (LaMICtal) tablet 25 mg, 25 mg, oral, BID, Manda Pineda MD, 25 mg at 04/09/25 100 levETIRAcetam (KEPPRA) injection 750 mg, 750 mg, [...] daily, Manda Pineda MD, 500,000 Units at 04/09/251002 OXcarbazepine (TRILEPTAL) tablet 150 mg, 150 mg, oral, Daily, Manda Pineda MD, 150 mg at 04/09/251003 OXcarbazepine (TRILEPTAL) tablet 300 mg, 300 mg, oral, Nightly, Manda Pineda MD, 300 mg at 04/08/251943 [Held by provider] sodium chloride tablet 1 [...] predominant Main term 2: Rhythmic delta activity (HARNESS REPAIRER) + Sharp (S) Prevalence: Occasional (1-9%) Duration: [...] seen. Sterling Hurtado MD Epileptologist/ Staff Neurologist [facility] us Leatha Aviles MD NEUROLOGY ORDERABLES [...] is a Rapid EEG acquired with a [employer] EEG machine with 10 lead, 8 channel system positioned circumferentially, spaced according to the lateral chains of the 10-20 international system of EEG electrode placements. Vertex and paracentral recording electrodes are not included. The entire segments of the EEG were scanned by the attending physician. The [employer] System used the Clarity algorithm to analyze brain activity and detect seizures/status epilepticus to support reading of the EEG. Performed with [employer], [employer] Status Epilepticus Monitor, NTAP ICD-10 PCS Code = [id number] Video recorded: No Clinical Information History: Antoni [...] Pineda MD, 10 mg at 04/07/25 2133 vuhtemkmbgjcmoq-jyxsrapd-shwmrhhlt-simethicone-lidocaine (MAGIC MOUTHWASH) suspension, 10 mL, Mouth/Throat, 4x daily, Manda Pineda MD hydrocortisone sod succinate injection 50 mg, 50 mg, intravenous, q6h, Manda Pnieda MD, 50 mg at 04/08/25 0830 lacosamide (VIMPAT) injection 50 mg, 50 mg, intravenous, q12h, Manda Pineda MD, 50 mg at 04/08/25 0826 lamoTRIgine (LaMICtal) tablet 100 mg, 100 mg, oral, BID, Manda Pineda MD, 100 mg at 04/08/25 0835 lamoTRIgine (LaMICtal) tablet 25 mg, 25 mg, oral, BID, Manda Pineda MD, 25 mg at 04/08/25834 levETIRAcetam (KEPPRA) injection 750 mg, 750 mg, intravenous, BID, Manda Pineda MD, 750 mg at 04/08/25827 levothyroxine (SYNTHROID, LEVOTHROID) tablet 50 mcg, 50 mcg, oral, Once per day on Thursday, Manda Pineda MD, 50 mcg at 04/08/25630 LORazepam (ATIVAN) injection 2 mg, 2 mg, intravenous, q4h PRN, Manda Pineda MD nystatin (MYCOSTATIN) 100,000 unit/mL suspension 500,000 Units, 500,000 Units, Swish & Swallow, 4x daily, Manda Pineda MD, 500,000 Units at 04/08/25834 OXcarbazepine (TRILEPTAL) tablet 150 mg, 150 mg, oral, Daily, Manda Pineda MD, 150 mg at 04/08/2536 OXcarbazepine (TRILEPTAL) tablet 300 mg, 300 mg, oral, Nightly, Manda Pineda MD sodium chloride 0.9 % infusion, 75 mL/hr, intravenous, Continuous, Manda Pineda MD, Last Rate: 75 mL/hr at 04/08/25630, 75 mL/hr at 04/08/25630 [Held by provider] [...] predominant Main term 2: Rhythmic delta activity (HARNESS REPAIRER) + Sharp (S) Prevalence: Occasional (1-9%) Duration: [...] seen. Sterling Hurtado MD Epileptologist/ Staff Neurologist [facility] us Leatha Aviles MD NEUROLOGY ORDERABLES Final Result NATUS * (ABNORMAL) CBC auto differential (04/08/2025 8:14 AM EDT) Only the most recent of3 resultswithin the time period is included. WBC 8.3 4.0 - 10.5 K/mcL LAB HEMETOLOGY METHOD 04/08/2025 9:07 AM EDT [facility] RBC 4.79 4.20 - 5.40 M/mcL LAB HEMETOLOGY METHOD 04/08/2025 9:07 AM EDT [facility] Hemoglobin 14.5 12.5 - 16.0 g/dL LAB HEMETOLOGY METHOD 04/08/2025 9:07 AM EDT [facility] Hematocrit 43.9 37.0 - 47.0 % LAB HEMETOLOGY METHOD 04/08/2025 9:07 AM EDT [facility] MCV 91.7 78.0 - 100.0 FL LAB HEMETOLOGY METHOD 04/08/2025 9:07 AM EDT [facility] MCH 30.4 25.0 - 33.0 pcg LAB HEMETOLOGY METHOD 04/08/2025 9:07 AM EDT [facility] MCHC 33.1 32.0 - 36.0 g/dL LAB HEMETOLOGY METHOD 04/08/2025 9:07 AM EDT [facility] RDW 13.3 12.1 - 16.2 % LAB HEMETOLOGY METHOD 04/08/2025 9:07 AM EDT [facility] Platelets 265 150 - 450 K/mcL LAB HEMETOLOGY METHOD 04/08/2025 9:07 AM EDT [facility] MPV 8.5 7.4 - 11.4 FL LAB HEMETOLOGY METHOD 04/08/2025 9:07 AM EDT [facility] Neutrophils Relative 84.7(H) 44.0 - 74.0 % LAB HEMETOLOGY METHOD 04/08/2025 9:07 AM EDT [facility] Lymphocytes Relative 10.9(L) 20.0 - 48.0 % LAB HEMETOLOGY METHOD 04/08/2025 9:07 AM EDT [facility] Monocytes Relative 3.8 2.0 - 12.0 % LAB HEMETOLOGY METHOD 04/08/2025 9:07 AM EDT [facility] Eosinophils Relative 0.1 0.0 - 6.0 % LAB HEMETOLOGY METHOD 04/08/2025 9:07 AM EDT [facility] Basophils Relative 0.5 0.0 - 2.0 % LAB HEMETOLOGY METHOD 04/08/2025 9:07 AM EDT [facility] Neutrophils Absolute 7.00 1.80 - 7.80 K/mcL LAB HEMETOLOGY METHOD 04/08/2025 9:07 AM EDT [facility] Lymphocytes Absolute 0.90(L) 1.00 - 3.20 K/mcL LAB HEMETOLOGY METHOD 04/08/2025 9:07 AM EDT [facility] Monocytes Absolute 0.30 0.00 - 0.80 K/mcL LAB HEMETOLOGY METHOD 04/08/2025 9:07 AM EDT [facility] Eosinophils Absolute 0.00 0.00 - 0.50 K/mcL LAB HEMETOLOGY METHOD 04/08/2025 9:07 AM EDT [facility] Basophils Absolute 0.00 0.00 - 0.20 K/mcL LAB HEMETOLOGY METHOD 04/08/2025 9:07 AM EDT [facility] Blood Venous blood specimen / Unknown Venipuncture / Unknown 04/08/2025 8:14 AM EDT 04/08/2025 8:57 AM EDT Leatha Aviles MD LAB BLOOD ORDERABLES Final Result [facility] [address] [place] [address], [place] [phone] * (ABNORMAL) Oxcarbazepine level (04/08/2025 8:14 AM EDT) Only the most recent of2 resultswithin the time period is included. Oxcarbazepine 4.1(L) 10 - 35 ug/mL 04/12/2025 1:41 PM EDT [facility] Comment: If applicable, any drug confirmation testing reported here was developed and the performance characteristics determined by [facility]. This confirmation testing has not been cleared or approved by the FDA. The laboratory is regulated under CLIA as qualified to perform high-complexity testing. This test is used for patient testing purposes. It should not be regarded as investigational or for research. Test performed at [facility], [address] , [place] [address] Leisa Barragan MD, PhD - Samples And Repairs Preparer Blood Venous blood specimen / Unknown Venipuncture / Unknown 04/08/2025 8:14 AM EDT 04/08/2025 8:57 AM EDT us Leatha Aviles MD LAB BLOOD ORDERABLES Final Result [facility] [address] [place] [address] * Levetiracetam level (04/08/2025 8:14 AM EDT) Levetiracetam 12.1 3.0 - 60.0 ug/mL 04/12/2025 6:16 AM EDT [facility] Comment: Steady state trough serum or plasma levels following doses of 1000 to 3000 mg/Day: 3 to 37 ug/mL. The same dosage regimen will typically result in peak levels of 10 to 60 ug/mL, at approximately 1.5 hours post dose. If applicable, any drug confirmation testing reported here was developed and the performance characteristics determined by [facility]. This confirmation testing has not been cleared or approved by the FDA. The laboratory is regulated under CLIA as qualified to perform high-complexity testing. This test is used for patient testing purposes. It should not be regarded as investigational or for research. Test performed at [facility], [address] , [place] [address] Leisa Barragan MD, PhD - Samples And Repairs Preparer Blood Venous blood specimen / Unknown Venipuncture / Unknown 04/08/2025 8:14 AM EDT 04/08/2025 8:57 AM EDT Leatha Aviles MD LAB BLOOD ORDERABLES Final Result [facility] [address] [place] [address] * (ABNORMAL) Thyroid stimulating hormone (04/08/2025 8:14 AM EDT) Pathologist [facility] TSH 0.25(L) 0.45 - 5.33 mcIU/mL LAB CHEMISTRY METHOD 04/08/2025 9:54 AM EDT [facility] Blood Venous blood specimen / Unknown Venipuncture / Unknown 04/08/2025 8:14 AM EDT 04/08/2025 8:57 AM EDT us Leatha Aviles MD LAB BLOOD ORDERABLES Final Result [facility] [address] [place] [address], [place] [phone] * Thyroxine free (04/08/2025 8:14 AM EDT) Free T4 0.70 0.50 - 1.30 ng/dL LAB CHEMISTRY METHOD 04/10/2025 10:21 AM EDT [facility] Blood Venous blood specimen / Unknown Venipuncture / Unknown 04/08/2025 8:14 AM EDT 04/08/2025 8:57 AM EDT Reggie Nickerson MD LAB BLOOD ORDERABLES Final Re sult [facility] [address] [place] [address], [place] [phone] * ECG-Annotated (04/08/2025) Provider Onbase ECG ORDERABLES Final Result * [...] Signed Date: 04/06/2025 13:35 ET Workstation ID: [id number] Transcribed By: Self Edit Transcribed Date: 04/06/2025 13:32 ET Narrative 04/06/2025 1:35 PM EDT INDICATION: Headache, classic migraine; breakthrough seizure Technique: Axial images were obtained from the skull base to the vertex without contrast enhancement. Scanner: [email or web address].[email or web address] 64 slice VCT Dose reduction technique: ASIR [...] base to the vertexwithout contrast enhancement. Scanner: [employer]tech 64 slice VCT Dose reduction technique: ASIR [...] Signed Date: 04/06/2025 13:35 ET Workstation ID: [id number] Transcribed By: Self Edit Transcribed Date: 04/06/2025 13:32 ET us Carlie Morales MD IMG CT PROCEDURES Final Result * Phosphorus (04/06/2025 5:25 AM EDT) Only the most recent of2 resultswithin the time period is included. Phosphorus 3.3 2.5 - 4.5 mg/dL LAB CHEMISTRY METHOD 04/06/2025 7:16 AM EDT [facility] Blood Venous blood specimen / Unknown Venipuncture / Unknown 04/06/2025 5:25 AM EDT 04/06/2025 6:15 AM EDT us Carlie Morales MD LAB BLOOD ORDERABLES Final Resu lt [facility] [address] [place] [address], [place] [phone] * CT Chest wo Contrast (04/05/2025 9:41 [...] lymphadenopathy. 5. Small [place]atal [place] ([id number]) -------- FINAL REPORT -------- Dictated By: Ludy Duran Dictated Date: 04/05/2025 09:45 ET Assigned Physician: Ludy Duran Reviewed and Electronically Signed By: Ludy Duran Signed Date: 04/05/2025 09:50 ET Workstation ID: [id number] Transcribed By: Self Edit Transcribed Date: 04/05/2025 09:45 ET Narrative 04/05/2025 9:50 AM EDT History: Recurrent aspiration pneumonia. Comparison: 10/15/24 Technique: Helical volumetric imaging of the thorax was performed without IV contrast. DLP: 436.56 mGy/cm [employer] Cross Iterative reconstruction technique Findings: Evaluation of the [...] was performed withoutIV contrast. DLP: 436.56 mGy/cm [employer] Cross Iterative reconstruction technique Findings: Evaluation of the [...] lymphadenopathy. 5. Small [place]atal [place] ([id number]) -------- FINAL REPORT -------- Dictated By: Ludy Duran Dictated Date: 04/05/2025 09:45 ET Assigned Physician: Ludy Duran Reviewed and Electronically Signed By: Ludy Duran Signed Date: 04/05/2025 09:50 ET Workstation ID: [id number] Transcribed By: Self Edit Transcribed Date: 04/05/2025 09:45 ET Diana LE IMG CT PROCEDURES Final Result * Complete blood count (04/05/2025 5:20 AM EDT) [facility] WBC 10.6 4.8 - 10.8 K/mcL LAB HEMETOLOGY METHOD 04/05/2025 6:31 AM EDT [facility] RBC 4.70 3.80 - 4.80 M/mcL LAB HEMETOLOGY [facility] Hemoglobin 14.4 11.5 - 16.0 g/dL LAB HEMETOLOGY METHOD 04/05/2025 6:31 AM EDT [facility] Hematocrit 43.0 35.0 - 47.0 % LAB HEMETOLOGY METHOD 04/05/2025 6:31 AM EDT [facility] MCV 90.9 79.0 - 98.0 FL LAB HEMETOLOGY METHOD 04/05/2025 6:31 AM EDT [facility] MCH 30.4 27.0 - 32.0 pcg LAB HEMETOLOGY METHOD [facility]/05[facility]2025 [facility] MCHC 33.5 32.0 - 37.0 g/dL LAB HEMETOLOGY METHOD 04/05/2025 6:[facility] RDW 12.4 11.0 - 15.0 % LAB HEMETOLOGY METHOD 04/05/2025 6:[facility] Platelets 295 130 - 400 K/mcL LAB HEMETOLOGY METHOD 04/05/2025 6:31 AM EDT [facility] MPV 10.5 7.0 - 11.0 FL LAB HEMETOLOGY METHOD 04/05/2025 6:31 AM EDT [facility] NRBC 0.0 <1.0 % LAB HEMETOLOGY METHOD 04/05/2025 6:31 AM EDT [facility] NRBC Absolute 0.00 <0.10 K/mcL LAB HEMETOLOGY METHOD 04/05/2025 6:31 AM EDT [facility] Blood Venous blood specimen / Unknown Venipuncture / Unknown 04/05/2025 5:20 AM EDT 04/05/2025 6:12 AM EDT us Yue Zavala MD LAB BLOOD ORDERABLES Final Res ult Performing Organization Address [facility]/ZIP Co de Phone Number [facility] [address] [place] [address], [place] [phone] * (ABNORMAL) Osmolality (04/05/2025 5:20 AM EDT) Osmolality Bertin 274(L) 280 - 300 mOsm/kg LAB CHEMISTRY METHOD 04/05/2025 10:14 AM EDT [facility] Blood Venous blood specimen / Unknown Venipuncture / Unknown 04/05/2025 5:20 AM EDT 04/05/2025 6:12 AM EDT us Carlie Morales MD LAB BLOOD ORDERABLES Final Resu lt Performing Organization Address City/[facility]/ZIP Co de Phone Number [facility] [address] [place] [address], [place] [phone] * Creatine kinase (04/05/2025 5:20 AM EDT) Total CK 61 22 - 269 unit/L LAB CHEMISTRY METHOD 04/05/2025 9:42 AM EDT [facility] Blood Venous blood specimen / Unknown Venipuncture / Unknown 04/05/2025 5:20 AM EDT 04/05/2025 6:12 AM EDT Carlie Morales MD LAB BLOOD ORDERABLES Final Resu lt Performing Organization Address [facility]/ZIP Co de Phone Number [facility] [address] [place] [address], * Lactate, with Reflex (04/04/2025 6:44 PM EDT) LACTIC ACID 1.7 0.4 - 2.0 mmol/L LAB CHEMISTRY METHOD 04/04/2025 7:26 PM EDT [facility] Blood Venous blood specimen / Unknown Venipuncture / Unknown 04/04/2025 6:44 PM EDT 04/04/2025 6:50 PM EDT Wendie Cooper MD LAB BLOOD ORDERABLES Final Resul t Performing Organization Address [facility]/ZIP Co de Phone Number [facility] [address] [place] [address], [place] [phone] * Lamotrigine level (04/04/2025 6:44 PM EDT) Lamotrigine (Lamictal) Level 5.9 2.0 - 15.0 ug/mL 04/07/2025 12:28 PM EDT [facility] Comment: Lamotrigine toxic level: >20 ug/mL The reference range is not well established. It may be as wide as 1 - 20 ug/mL. If applicable, any drug confirmation testing reported here was developed and the performance characteristics determined by [facility]. This confirmation testing has not been cleared or approved by the FDA. The laboratory is regulated under CLIA as qualified to perform high-complexity testing. This test is used for patient testing purposes. It should not be regarded as investigational or for research. Test performed at [facility], [facility] [address], [place] [address] Leisa Barragan MD, PhD - Samples And Repairs Preparer Blood Venous blood specimen / Unknown Venipuncture / Unknown 04/04/2025 6:44 PM EDT 04/04/2025 6:49 PM EDT us Wendie Cooper MD LAB BLOOD ORDERABLES Final Resul t [facility] [address] [place] [address] * [id number], RSV, Influenza A and B qualitative RT-PCR (04/04/2025 1:28 PM EDT) Influenza A PCR Not Detected Not Detected LAB MICROBIOLOGY METHOD 04/04/2025 2:51 PM EDT [facility] Influenza B PCR Not Detected Not Detected LAB MICROBIOLOGY METHOD 04/04/2025 2:51 PM EDT [facility] RSV PCR Not Detected Not Detected LAB MICROBIOLOGY METHOD 04/04/2025 2:51 PM EDT [facility] SARS COV-2 Not Detected Not Detected LAB MICROBIOLOGY METHOD 04/04/2025 2:51 PM EDT [facility] Swab Both anterior nares / Unknown Non-blood Collection / Unknown 04/04/2025 1:28 PM EDT 04/04/2025 2:08 PM EDT Narrative [facility] - 04/04/2025 2:51 PM EDT Disclaimer: Testing was performed using the [employer] GeneXpert Xpress SARS-CoV-2 _Flu_RSV PLUS PCR assay. [...] for Healthcare providers can be found at https://www.fda.gov/media/974104/download. Fact sheet for Healthcare patients can be found at https://www.fda.gov/media/091142/download. Wendie Cooper MD LAB MICROBIOLOGY - GENERAL ORDER UTE Final Result Performing Organization Address [facility] Co de Phone Number [facility] [address] [place] [address], * ECG 12 lead (04/04/2025 11:02 AM EDT) Ventricular Rate ECG 93 BPM GEMUSE Atrial Rate 93 BPM GEMUSE P-R Interval 160 ms GEMUSE QRS Duration 76 ms GEMUSE Q-T Interval 350 ms GEMUSE QTc 435 ms GEMUSE P Wave Morris 30 degrees GEMUSE R Morris 56 degrees GEMUSE T Morris -7 degrees GEMUSE ECG Interpretation Normal sinus rhythm T wave abnormality, consider inferior ischemia T wave abnormality, consider anterior ischemia When compared with ECG of 14-OCT-2024 17:27, No significant change was found Confirmed by KIANNA MELENDREZ ([id number]) on 04/04/2025 11:47:21 PM GEMUSE 04/04/2025 11:0 2 AM EDT 04/04/2025 11:47 PM EDT Wendie Cooper MD ECG ORDERABLES Final Result Performing Organization Address [facility] Co de Phone Number GEMUSE * Prolactin (04/04/2025 10:40 AM EDT) Prolactin 5.30 See Comment ng/mL LAB CHEMISTRY METHOD 04/04/2025 11:30 AM EDT [facility] Comment: Prolactin Reference Ranges (ng/mL) Non 2.2 - 30.3 8.1 - 347.6 Postmenopausal 0.7 - 31.5 Blood Venous blood specimen / Unknown Venipuncture / Unknown 04/04/2025 10:40 AM EDT 04/04/2025 10:52 AM EDT us Wendie Cooper MD LAB BLOOD ORDERABLES Final Resul t Performing Organization Address [facility] de Phone Number [facility] [address] [place] [address], [place] [phone] * hCG, serum, qualitative (04/04/2025 10:40 AM EDT) hCG Qual Negative Negative 04/04/2025 8:36 PM EDT [facility] Blood Venous blood specimen / Unknown Venipuncture / Unknown 04/04/2025 10:40 AM EDT 04/04/2025 10:52 AM EDT us Wendie Cooper MD LAB BLOOD ORDERABLES Final Resul t Performing Organization Address [facility] de Phone Number [facility] [address] [place] [address], [place] [phone] * (ABNORMAL) Carbamazepine level, total (Tegretol) (04/04/2025 10:40 AM EDT) Carbamazepine Level <0.5(L) 8.0 - 12.0 mcg/mL LAB CHEMISTRY METHOD 04/04/2025 2:09 PM EDT [facility] Blood Venous blood specimen / Unknown Venipuncture / Unknown 04/04/2025 10:40 AM EDT 04/04/2025 10:52 AM EDT us Wendie Cooper MD LAB BLOOD ORDERABLES Final Resul t Performing Organization Address [facility] de Phone Number [facility] [address] [place] [address], [place] [phone] * OR CRITICAL CARE 30-74 MINUTES (04/04/2025 9:57 AM EDT) Narrative Wendie Cooper MD - 04/04/2025 9:57 AM EDT Wendie [...] or life-threatening deterioration of the following conditions: TRUCK LOADER failure or compromise Critical care was time [...] Care discussed with: admitting provider Comments: Neurolog Wendie Cooper MD IN CLINIC/BEDSIDE ORDERABLES Fin al Result * Hepatitis C antibody (02/27/2025 8:54 AM EDT) Hepatitis C Antibody Negative Negative LAB CHEMISTRY METHOD 02/27/2025 1:23 PM EDT [facility] Blood Venous blood specimen / Unknown Venipuncture / Unknown 02/27/2025 8:54 AM EDT 02/27/2025 8:54 AM EDT Ileana Theodore NP LAB BLOOD ORDERABLES Final Resu lt [facility] [address] [place] [address], * Depression Screening (05/11/2024) Depression Screening abstracted Historical Provider MD HEALTH MAINTENANCE Final Result from Last 3 Months or Most Recently Relevant to Health Maintenance Insurance [place]ICARE [place]ICA[place] Advance Directives Documents on File Type Date Recorded Patient Investigation Clerk Expl anation Advance Directives and Living Will 04/12/2025 1:20 PM Power of Account Executive [employer] 04/12/2025 1:20 PM Advance Directives and Living Will 04/10/2025 9:35 AM PROXY Power of Account Executive [employer] 04/05/2025 10:49 AM Dura ble Power of Account Executive [employer] Power of Account Executive [employer] 04/05/2025 10:47 AM Dura ble Power of [...] Agents on File Name Relationship Healthcare Agent Relationshi p Communication Codey Lynne Mother Health Care Agent Stanislaw Benites Father First Alternate Health Care Agent Care Teams Skein Straightener Relationship Specialty Start Date End Date Sid Jo MD [address] [place] [phone] PCP - General Internal Medicine 06/29/24
--- OUTSIDE RECORDS SUMMARY | 2025-06-14 22:47 | XMS_ITS ---
Author Organization [facility] [address] [place] [address] [place] [address] Phone Care Team Providers Care Brusher Operator Name Role Phone Sid Jo MD Primary Care Provider [phone] Active Problems Problem Noted Date Diagnosed Date Seizure ([facility] V24, [facility] V28) 04/07/2025 Recurrent seizures ([facility] V24, [facility] V28) Esophagitis 10/16/2024 Multifocal pneumonia 10/15/2024 Anemia 05/24/2024 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 Overview (05/24/2024): [...] pathologic fractures, neurofibromatosis Malignant neoplasm of brain ([facility] V24, [facility] V28) 06/19/2006 Overview (05/24/2024): followed by dr zamora and oncology yearly PDD (pervasive developmental disorder) 6 Hypothyroidism 06/19/2006 Overview (05/24/2024): on synthroid 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 She agreed. Intractable epilepsy ([facility] V24, [facility] V28) 05/04/2006 Overview (05/24/2024): Previously followed by dr malagon, at transfer to Dr Watts was on Dilantin and Phenobarb, care transferred to dr fareed watts 12/28 (Adult Nerurology at [facility]), switch to dr trevino 05/01, [...] Overview (05/24/2024): see neuropsych eval 07/30 Neurofibromatosis ([facility] V24, [facility] V28) 06/2006 Current Treatment and Therapy Plans No current plan information found. Past Treatment and Therapy Plans No past plan information found. Lifetime Dose Tracking * Chemical Lifetime Dose Automatic Entry Manual Entr y CTDIvol 9.15 mGy 9.15 mGy 0 mGy
== END 2025-06-14 22:26 | disposition home or self-care (01) ==
PROVIDERS: Physician Assistant Medical; Emergency Provider Emergency Medicine; PCP Internal Medicine
DX: E86.0 Dehydration (principal); R11.10 Vomiting, unspecified; J02.9 Acute pharyngitis, unspecified; Z03.818 Encounter for observation for suspected exposure to other biological agents ruled out
CPT/HCPCS: 80053; 83735; 85025; 87502; 87635; 87651; 99283; 99284

== ENCOUNTER 2025-06-18 11:49 | Emergency (ER) | payer MEDICARE, MEDICAID, SELFPAY ==
--- NOTE | ~2025-06-18 | XR_ITS ---
CLINICAL HISTORY: weakness 1 view chest x-ray Comparison: None Findings: There is a left-sided stimulator. There is enlargement of the cardiopericardial silhouette. There is increase of interstitial lung markings. There are additional patchy opacities of the lungs. No acute fracture. IMPRESSION: Cardiomegaly with pulmonary vascular congestion. Patchy opacities of the lungs. Superimposed infection can not be excluded. This document has been electronically signed by: Jocelyn Posey MD on 06/18/2025 19:09:19
--- NOTE | ~2025-06-18 | CT_ITS ---
CLINICAL HISTORY: difficu;ty walking CT head without contrast. COMPARISON: 04/23/2025 FINDINGS: Mucosal thickening present within the ethmoid sinuses. Mastoid air cells are clear. No calvarial fracture. Atherosclerotic intracranial vasculature. No mass or mass effect. No intracranial hemorrhage or abnormal extra-axial fluid collection. Bilateral basal ganglia mineralization. Chronic lacunar infarcts present within the basal ganglia bilaterally versus prominent perivascular spaces. There is unchanged low-density area in the bilateral anterior temporal lobe white matter. Ventricles are proportion with the degree of djqm-tq-yppqashu global cerebral volume loss without evidence of hydrocephalus. Basilar cisterns are patent. Posterior fossa is unremarkable. IMPRESSION: 1. Stable examination from prior CT. 2. Atherosclerotic intracranial vasculature, greater than expected for age. 3. Mexn-ar-afhpcxdl global cerebral volume loss, greater than expected for age. 4. 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 Unchanged low-density area in the bilateral anterior temporal lobe white matter. Further evaluation by brain MRI as indicated. This document has been electronically signed by: Jocelyn Posey MD on 06/18/2025 19:03:57
--- NOTE | 2025-06-18 11:52 | ED.GENADULT ---
HPI - General Adult General Chief complaint: Weakness Stated complaint: cant walk, cant eat, dizziness, fatigue Time Seen by Provider: 06/18/25 15:51 History of Present Illness ED Provider: Rolando OROZCO narrative: The patient is a 34-year-old female with a history of a seizure disorder as well as a previous stroke and physical and intellectual disabilities. According to the family the patient has been much less active over the last 3 or 4 days. The family says that she is normally able to walk on her own but she has a required a lot of assistance over the last 3 or 4 days which is unusual. Additionally the patient has not been eating very much. Additionally the patient has been sleeping a great deal. The family wonders whether this might be the result of stopping hydrocortisone. I believe the patient has been thought to have a history of adrenal insufficiency and has been on hydrocortisone 10 mg in the morning and 5 mg in the evening for a long time. The family says that about 2 weeks ago this medication seemed to has been stopped. The family says they had not been given any indication for why this might has been the case but they have not been giving the hydrocortisone for the last 2 weeks. There has been no fevers, sweats, chills. The patient denies headache, chest pain, abdominal pain. The patient had an episode of vomiting 4 days ago when she previous came to the emergency room but there has been no ongoing vomiting. No diarrhea. Related Data Home Medications ?Medication ?Instructions ?Recorded ?Confirmed amoxicillin 875 mg-potassium 1 tab PO BID 12/11/21 clavulanate 125 mg tablet ascorbic acid (vitamin C) 500 mg 500 mg PO DAILY 12/11/21 chewable tablet (Vitamin C) aspirin 325 mg tablet 325 mg PO DAILY 12/11/21 cholecalciferol (vitamin D3) 25 25 mcg PO DAILY 12/11/21 mcg (1,000 unit) tablet clobazam 10 mg tablet 10 mg PO BEDTIME 12/11/21 estradiol 14 mcg/24 hr weekly 1 patch topical QWEEK 12/11/21 transdermal patch (Menostar) ferrous sulfate 325 mg (65 mg 325 mg PO DAILY 12/11/21 iron) tablet (FeroSul) lamotrigine 100 mg tablet mg PO 12/11/21 lamotrigine 25 mg tablet,extended 0 mg PO BID PRN 12/11/21 release 24 hr levothyroxine 50 mcg tablet 50 mcg PO DAILY 12/11/21 omeprazole 40 mg capsule,delayed 40 mg PO DAILY 12/11/21 release oxcarbazepine 150 mg tablet 300 mg PO BID 12/11/21 progesterone micronized 100 mg 100 mg PO BEDTIME 12/11/21 capsule sodium chloride 1,000 mg soluble 2,000 mg PO DAILY 12/11/21 tablet Previous Rx's ?Medication ?Instructions ?Recorded clindamycin HCl 300 mg capsule 300 mg PO TID 7 days #21 caps 04/23/25 (Cleocin HCl) oxycodone 5 mg/5 mL oral solution 5 mg (5 mL) PO Q8H PRN pain #100 mL 04/23/25 ondansetron 4 mg disintegrating 4 mg PO Q8H PRN nausea and 06/14/25 tablet vomiting #7 tabs hydrocortisone 5 mg tablet See Rx Instructions .Route 06/18/25 .COMPLEX #270 tabs Allergies Allergy/AdvReac Type Severity Reaction Status Date / Time carbamazepine (From Tegretol) Allergy Unknown Verified 06/18/25 11:56 zonisamide (From Zonegran) Allergy Unknown Verified 06/18/25 11:56 Review of Systems Review of Systems: Yes all other systems are reviewed and are negative [facility] Social History Social History Patient Tobacco Use Status: Never used Tobacco Advance Directives Date on File: 04/23/25 Physical Exam ED Vital Signs: Vital Signs - 24 hr 06/18/25 11:53 06/18/25 20:25 Temperature 97.6 F 97.6 F Pulse Rate 94 94 Respiratory Rate 18 18 Blood Pressure 111/80 111/80 Pulse Oximetry 95 95 Oxygen Delivery Method Room Air Room Air BMI result Body Mass Index 26.9 Const Other: The patient is a chronically ill-appearing 34-year-old. The patient is awake and alert. She does not appear obviously acutely ill. HENMT Other: I think there is some mild left-sided facial weakness. I believe this is chronic. Otherwise the face is unremarkable. Eyes Other: Pupils are round equal, conjunctivae are clear Neck Other: The neck is supple. No adenopathy. Resp Effort & Inspection: normal respiratory effort Auscultation: clear to auscultation bilaterally Cardio Rate: regular rate Rhythm: regular rhythm Heart sounds: S1 normal heart sound present and S2 normal heart sound present GI Other: Abdomen was soft and nontender Skin Other: The skin is dry and unremarkable Neuro Other: The patient is awake and alert. She has an unusual demeanor. She seems pleasant. I think she may have some mild left-sided facial weakness. Eye movements seem intact. Speech seems clear. She has some mild left arm weakness compared to the right. Her left leg weakness seems more pronounced than her left arm weakness. She required assistance with walking. Extrem Other: No peripheral edema. No calf asymmetry or tenderness. Course Course Course Narrative: Lizzie Allen RESOLUTION REP 06/18/25 1154 This is a rapid medical exam. Deferred additional HPI, ROS, PE to primary provider. 34-year-old female with a history of developmental delay, kinsey hypopituitarism, renal stones and neurofibromatosis type 1, medically refractory seizures s/p VNS, left BKA here with complaints difficulty walking, decreased oral intake, fatigue. Came of hydrocortisone 2 weeks ago abruptly which mom believes correlates with her symptoms. Mom reports she tried to fill the hydrocortisone but was told they have no more refills and when she called the office she was told that they were no longer going to refill it. Unsure reason why, Has appt 07/06 with wellness nurse (YOLANDA Lentz). Will obtain labs, UA VSS Medications Administered Discontinued Medications Generic Name Dose Route Start Last Admin Trade Name Paulo PRN Reason Stop Dose Admin Hydrocortisone 5 mg 06/18/25 18:47 06/18/25 19:41 Hydrocortisone 10 Mg Tablet PO 06/18/25 18:48 5 mg ONCE ONE Administration Medical Decision Making Medical Decision Making [facility] Narrative: The patient is a 34-year-old female with a history of multiple medical problems. According to the family she has been walking less well over the last several days and eating less and sleeping more. The patient has normal vital signs. She has unremarkable labs. Clinically my suspicion for an acutely dangerous process is not very high. She apparently walking less well than usual. She has an unchanged head CT. The family also points out that her hydrocortisone which she has been taking for a very long time according to the family was abruptly stopped a proximally 2 weeks ago. The family was not told why this medication was being stopped. I was able to contact the covering grocery clerk marking for [employer]. The covering grocery clerk marking could not see any definite indication that this medication should be stopped. I therefore think that the stoppage of this medication was probably some kind of a bureaucratic accident rather than an intentional cessation of the medication. We will restart the patient on her previous dose of hydrocortisone. My hope is that with the rastafari of hydrocortisone the patient may return to her usual behaviors. The family seems comfortable with this plan. Lab Data 06/18/25 12:19 06/18/25 12:19 Labs: Lab Results 06/18/25 Range/Units 12:19 WBC 4.9 (4.8-10.8) X10*3/uL RBC 4.73 (4.20-5.50) X10*6/uL Hgb 14.5 (12.0-16.0) g/dl Hct 43.3 (37.0-47.0) % MCV 91.5 (80.0-98.0) fL MCH 30.7 (27.0-33.0) pg MCHC 33.5 (31.0-35.0) g/dl RDW 13.1 (11.0-16.0) % Plt Count 307 (160-400) X10*3/uL MPV 9.4 (9.4-12.3) fL Immature Gran % (Auto) 0.6 H (0.0-0.4) % Neut % (Auto) 53.2 (45-73) % Lymph % (Auto) 29.3 (20-40) % [place] % (Auto) 10.6 (2-11) % Eos % (Auto) 5.1 H (0-4) % Baso % (Auto) 1.2 (0-2) % Lymph # (Auto) 1.4 (1.2-4.9) X10*3/uL [place] # (Auto) 0.5 (0.1-1.2) X10*3/uL Eos # (Auto) 0.3 (0.0-0.4) X10*3/uL Baso # (Auto) 0.1 (0.0-0.2) X10*3/uL Abs Immat Gran (auto) 0.03 (0.00-0.03) X10*3/uL Absolute Neuts (auto) 2.6 (2.0-8.3) x10*3/uL Absolute Nucleated RBC 0.000 (0.0-0.012) X10*3/uL Nucleated RBC % (auto) 0.0 (0.0-0.2) /100WBC Sodium 143 (135-145) mmol/L Potassium 3.8 (3.3-5.1) mmol/L Chloride 107 (96-108) mmol/L Carbon Dioxide 26 (22-29) mmol/L Anion Gap 14 (12-20) BUN 3 L (9-16) mg/dL Creatinine 0.62 (0.5-1.4) mg/dL Estim Creat Clear Calc 86.2 Estimated GFR > 60 Random Glucose 86 (60-115) mg/dL Calcium 8.9 (8.4-10.2) mg/dL Magnesium 1.9 (1.6-2.6) mg/dL Total Bilirubin 0.5 (0.0-1.0) mg/dL Direct Bilirubin 0.2 (0.0-0.5) mg/dL AST 55 H (5-31) U/L ALT 39 H (0-31) U/L Alkaline Phosphatase 69 (39-117) U/L Troponin I High Sens < 2.7 (<3.5-17.0) ng/L NT-Pro-B Natriuret Pep 63.2 (<300) pg/mL Total Protein 7.1 (6.5-8.0) g/dL Albumin 3.9 (3.5-5.0) g/dL Discharge Plan Discharge Clinical Impression: Weakness Patient Disposition: Home, Self-Care Additional Instructions: As far as I can tell she is supposed to continue taking the hydrocortisone as she has been taking it before. Therefore please resume the dosing of the hydrocortisone as before. I have sent a prescription for this purpose to the [facility] drugstore. Also continue her other medications. Please keep your appointment on Thursday with her primary care provider. Return to the emergency room if significantly worse. Prescriptions: New hydrocortisone 5 mg tablet See Rx Instructions .ROUTE .COMPLEX Qty: 270 0RF Rx Instructions: 5 mg orally ;Take 2 tablets by mouth in the morning and 1 tablet by mouth in the evening No Action ondansetron 4 mg tablet,disintegrating 4 mg PO Q8H PRN (Reason: nausea and vomiting) Qty: 7 0RF clindamycin HCl [Cleocin HCl] 300 mg capsule 300 mg PO TID 7 Days Qty: 21 0RF oxycodone 5 mg/5 mL solution 5 mg PO Q8H PRN (Reason: pain) Qty: 100 0RF Rx Instructions: Partial Fill upon patient request. ferrous sulfate [FeroSul] 325 mg (65 mg iron) tablet 325 mg PO DAILY ascorbic acid (vitamin C) [Vitamin C] 500 mg tablet,chewable 500 mg PO DAILY amoxicillin-pot clavulanate 875-125 mg tablet 1 tab PO BID omeprazole 40 mg capsule,delayed release(DR/EC) 40 mg PO DAILY lamotrigine 100 mg tablet PO Menostar 14 mcg/24 hr patch weekly 1 patch topical QWEEK clobazam 10 mg tablet 10 mg PO BEDTIME cholecalciferol (vitamin D3) 25 mcg (1,000 unit) tablet 25 mcg PO DAILY oxcarbazepine 150 mg tablet 300 mg PO BID levothyroxine 50 mcg tablet 50 mcg PO DAILY lamotrigine 25 mg tablet extended release 24hr 0 mg PO BID PRN progesterone micronized 100 mg capsule 100 mg PO BEDTIME sodium chloride 1,000 mg tablet,soluble 2,000 mg PO DAILY aspirin 325 mg tablet 325 mg PO DAILY Referrals: Sid Jo III, MD [Primary Care Provider, Medical] Interventions: ED Discharge Assessment Last Done: 06/18/25 20:25 Discharge Date/Time: 06/18/25 20:28 Print Language: Latvian
[2025-06-18 11:53] VITALS: BP 111/80; PULSE 94; RESP 18; TEMP 36.4; O2SAT 95; BMI 26.9
[2025-06-18 12:22] LABS: MANUAL DIFF FLAG NO
[2025-06-18 12:24] LABS: Hematocrit 43.3 % (37.0-47.0); Hemoglobin 14.5 g/dl (12.0-16.0); Imm Gran Abs Auto 0.03 X10*3/uL (0.00-0.03); Imm Gran Pct Auto 0.6 % (0.0-0.4); Lymphocytes Absolute Auto 1.4 X10*3/uL (1.2-4.9); Mean Corpuscular HGB Conc 33.5 g/dl (31.0-35.0); Mean Corpuscular Hemoglobin 30.7 pg (27.0-33.0); Mean Corpuscular Volume 91.5 fL (80.0-98.0); NRBC Abs Auto 0.000 X10*3/uL (0.0-0.012); NRBC Pct Auto 0.0 /100WBC (0.0-0.2); Platelet Count 307 X10*3/uL (160-400); Red Blood Count 4.73 X10*6/uL (4.20-5.50); White Blood Count 4.9 X10*3/uL (4.8-10.8)
[2025-06-18 12:48] LABS: Alanine Aminotransferase 39 U/L (0-31); Albumin Level 3.9 g/dL (3.5-5.0); Alkaline Phosphatase 69 U/L (39-117); Anion Gap 14 (12-20); Aspartate Amino Transferase 55 U/L (5-31); Blood Urea Nitrogen 3 mg/dL (9-16); Calcium 8.9 mg/dL (8.4-10.2); Carbon Dioxide 26 mmol/L (22-29); Chloride 107 mmol/L (96-108); Creatinine Clr Calc Pharmacy 86.2; Estimated Glomerular Filt Rate > 60; Magnesium 1.9 mg/dL (1.6-2.6); Potassium 3.8 mmol/L (3.3-5.1); Sodium 143 mmol/L (135-145); Total Protein 7.1 g/dL (6.5-8.0)
--- OUTSIDE RECORDS SUMMARY | 2025-06-18 15:59 | XMS_ITS | Encounter Summary ---
Author Organization [facility] Address [address] [place] [address] Care Team Providers Care Identification Clerk Name Role Phone Sid Jo MD Primary Care Provider [phone] Encounter Details Date Type Department Care Team (Late st Contact Info) Description 06/12/2025 Telephone Adult Medicine [facility] [address] [place] [address] Sid Jo MD [address] [place], [place] Social History Tobacco Use Types Packs/Day [...] for your loved ones. For example, child support officer or elderly care for an older adult? [...] Care Team (Late st Contact Info) Description 06/21/2025 3:30 PM EDT Office Visit Adult Medicine [address] [phone] Julissa Melendez PA [address] [place] [address] 07/06/2025 8:20 AM EST Office Visit [address] [phone] Andres Pisano MD [address] [place] [address] 12/07/2025 8:30 AM EDT Office Visit Adult Medicine [address] [phone] Sid Jo MD [address] [place] [address] documented as of this encounter Visit Diagnoses Not on filedocumented in this encounter Care Teams Identification Clerk Relationship Specialty Start Date End Date Sid Jo MD [address] [place] [address] PCP - General Internal Medicine 06/29/24 documented as of this encounter
--- OUTSIDE RECORDS SUMMARY | 2025-06-18 15:59 | XMS_ITS | Clinical Summary ---
Author Organization [facility] [address] [place] [address] [place] [address] Phone Care Team Providers Care Senior [employer] Parachutist Name Role Phone Sid Jo MD Primary Care Provider [phone] Allergies Active Allergy Reactions Criticality Noted Date [...] Active diphenhydramine -aluminum-magne sium-simethicon e-lidocaine (MAGIC MOUTHWASH) [phone] mg/30 mL liquid suspension Use 10 [...] Problems Problem Noted Date Diagnosed Date Seizure ([facility] V24, [facility] V28) 04/07/2025 Recurrent seizures ([facility] V24, [facility] V28) Esophagitis 10/16/2024 Multifocal pneumonia 10/15/2024 Anemia 05/24/2024 Late effect of cerebrovascular accident (CVA) 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) 11/03/19 Overview (05/24/2024): Offered growth hormone [...] pathologic fractures, neurofibromatosis Malignant neoplasm of brain ([facility] V24, [facility] V28) 06/19/2006 Overview (05/24/2024): followed by dr zamora and oncology yearly PDD (pervasive developmental disorder) 6 Hypothyroidism 06/19/2006 Overview (05/24/2024): on synthroid Hypopituitarism ([facility] V24) 06/19/2006 Overview (05/24/2024): delayed puberty, followed by dr weinstein, on estrogen patch and provera cycling Consult RETAIL PHARMACIST- Dr Nieves 04/01, pelvic ultrasound and 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 She agreed. Intractable epilepsy (CMS/HCC V24, [facility] V28) 05/04/2006 Overview (05/24/2024): Previously followed by dr malagon, at transfer to Dr Watts was on Dilantin and Phenobarb, care transferred to dr fareed watts 12/28 (Adult Nerurology at [facility]), switch to dr trevino 05/01, dr elizondo [...] Encounters Date Type Department Care Team Description 06/16/2025 Telephone Adult Medicine [address] [phone] Selene Dorsey [place] 06/14/2025 Nurse Triage Adult Medicine [address] [phone] Sid Jo MD 06/12/2025 Telephone Adult Medicine [address] [phone] Sid Jo MD 06/12/2025 Telephone Adult Medicine [address] [phone] Sid Jo MD 06/05/2025 Telephone Adult Medicine [address] [phone] Sid Jo MD 05/25/2025 Telephone Adult Medicine [address] [phone] Sid Jo MD 05/22/2025 Results Follow-Up Adult Medicine [address], [place] [phone] Sid Jo MD 05/19/2025 9:50 AM EDT - 05/19/2025 11:59 PM EDT Hospital Encounter [address] [phone] Rib pain on right side Discharge Disposition: Home or Self Care 05/19/2025 9:00 AM EDT Office Visit Adult Medicine [address] [phone] Sid Jo MD Routine physical examination (Primary Dx); High cholesterol; Hyponatremia; Hypothyroidism, unspecified type; Need for prophylactic vaccination and inoculation against influenza; Rib pain on right side; Late effect of cerebrovascular accident (CVA); Intractable epilepsy without status epilepticus, unspecified epilepsy type (CMS/HCC V24, CMS/HCC V28); Mild intellectual disability; Recurrent seizures (CMS/HCC V24, CMS/HCC V28) 04/28/2025 Telephone Adult Medicine [address] [phone] Sid Jo MD 04/21/2025 11:29 AM EDT - 04/21/2025 1:43 PM EDT Emergency [facility] Emergency [address] [place] [phone] Aphthous ulcer (Primary Dx) Discharge Disposition: Home or Self Care 04/20/2025 Telephone Adult Medicine [address] [phone] Selene Dorsey [place] 04/17/2025 1:30 PM EDT Office Visit Adult [address] [phone] Sid Jo MD Recurrent seizures ([facility] V24, [facility] V28) (Primary Dx); Anemia, unspecified type; Gastroesophageal reflux disease, unspecified whether esophagitis present 04/11/2025 Telephone Adult Medicine [address] [phone] Selene Dorsey MA 04/07/2025 6:44 PM EDT - 04/11/2025 2:12 PM EDT Hospital Encounter [facility] Interim Care 8[address] [place] [phone] Hemalatha Cardoso MD Hewan, Henly Horace, MD Singh, Gagandeep, MD Udit, Chitreaka, MD Seizure ([facility] V24, [facility] V28) (Primary Dx) Discharge Disposition: Home or Self Care 04/04/2025 9:58 AM EDT - 04/07/2025 5:46 PM EDT Hospital Encounter [facility] Unit [address] [place] [phone] Wendie Cooper MD Bukalo, Nermina, MD Nasser, Nada S, MD Status epilepticus ([facility] V24, [facility] V28) (Primary Dx); Seizure secondary to subtherapeutic anticonvulsant medication ([facility] V24, [facility] V28); Hyponatremia; Recurrent seizures ([facility] V24, [facility] V28) Discharge Disposition: Short Term Hospital from Last 3 Months Immunizations Immunization Administration Dates Next Due COVID-19 (Pfizer/Comirnaty) 12yo and older 06/24/2024 DTP 01/27/1990,1988 DTaP (Infanrix) 6wks to less than 7yo 07/10/1993 [id number] (Pentacel) 2mo to less than 5yo 01/27/1990 [...] 06/19/1999,10/08/1989 Meningococcal MCV4P 06/19/2006 OPV 07/10/1993, 0,1988,09/19 Pfizer SARS-CoV-2 COVID-19, mRNA, LNP-S, preservative free 08/22/2021,01/23/2021 Td Tetanus diptheria (Tdvax) 7yo and older 11/19/2017,12/10/2000 Tdap Tetanus diptheria acell ular pertussis (Boostrix; Adacel) 7yo and older 03/18/2011,06/23/2007 Varicella live (Varivax) 12m o and older 1989 Surgical History Surgery Date Site/Laterality Comments OTHER SURGICAL HISTORY 1994 PROCEDURE: HISTORICAL BELOW KNEE AMP; COMMENT: secondary to to pathological fracture OTHER SURGICAL HISTORY 2005 PROCEDURE: DC INJECTION AA&/STRD VAGUS NERVE; COMMENT: vagus nerve stimulator, again in 2019 ESOPHAGOGASTRODUODENOSCOPY 05/21/2021 PROCEDURE: DC EGD TRANSORAL BIOPSY SINGLE/MULTIPLE; COMMENT: Grade C [...] disorder, not elsewhere classified; COMMENT: inpatient [facility] 09/[facility], on Prozac and Respirdal Other [...] Anemia DX:Anemia CVA (cerebral vascular accid ent) ([facility] V24, [facility] V28) Hypothyroid Hypopituitarism ([facility] V24) ACTH deficiency ([facility] V24) GERD (gastroesophageal reflu x disease) Hyperlipidemia Legally blind Hearing loss Growth hormone deficiency ([facility] V24) Hyponatremia Family History Medical History Relation [...] Alive Yves Stanislaw Brother 2 Alive Rosales Alegre 01/16 Father Alive Kamari Stanislaw Maternal Grandfather Maternal Grandmother Alive Mother Alive Lynne Trujillod 06/25 Paternal Grandfather Paternal Grandmother Social History [...] for your loved ones. For example, child adolescent psychiatrist or elderly care for an older [...] 3:30 PM EDT Office Visit Adult Medicine [address] [phone] Julissa Melendez PA [address] [place] [address] 07/06/2025 8:20 AM EST Office Visit Endocrinology [address] [phone] Andres Pisano MD [address] [place] [address] 12/07/2025 8:30 AM EDT Office Visit Adult Medicine [address] [phone] Sid Jo MD [address] [place] [phone] Health Maintenance Due Date Last Done Comments Pneumococcal Vaccine: Pediatrics (0 to 5 Years) and At-Risk Patients (6 to 49 Years) (1 of 2 - PCV) 2007 Cervical Cancer Screening: Pap Smear 2009 HPV Vaccines (1 - Risk 3-dose SCDM series) 2015 HIV Screening 08/02/2022 Medicare Annual Wellness Visit 08/02/2022 Depression Screening 08/24/2024 05/11/2024 COVID-19 Vaccine (5 - Pfizer risk 2023- season) 2025 06/24/2024, 08/22/2021, 01/23/2021, Additional history [...] LEVEL Timed 04/04/2025 6:4 4 PM EDT [id number], RSV, FLU A AND B QUALITATIVE RT-PCR, [...] AND DIFFERENTIAL STAT 04/04/2025 10:40 AM EDT DC CRITICAL CARE 30-74 MINUTES Routine 04/04/2025 9:57 [...] Signed Date: 05/19/2025 12:47 ET Workstation ID: [id number] Transcribed By: Self Edit Transcribed Date: 05/19/2025 [...] Signed Date: 05/19/2025 12:47 ET Workstation ID: [id number] Transcribed By: Self Edit Transcribed Date: 05/19/2025 12:44 ET us Sid Jo MD IMG XR PROCEDURES Final Result * Thyroid stimulating hormone with reflex to free t4 and free t3 (05/19/2025 9:45 AM EDT) Pathologist [facility] TSH 1.01 0.40 - 4.00 mcIU/mL LAB CHEMISTRY METHOD 05/19/2025 5:17 PM EDT [facility] Blood Venous blood specimen / Unknown Venipuncture / Unknown 05/19/2025 9:45 AM EDT 05/19/2025 9:45 AM EDT us Sid oJ MD LAB BLOOD ORDERABLES Final Resu lt [facility] [address] [place] [address], [place] [phone] * Lipid panel with reflex to direct LDL (05/19/2025 9:45 AM EDT) Cholesterol 119 0 - 200 mg/dL [facility] Triglycerides 64 0 - 150 mg/dL LAB CHEMISTRY METHOD 05/19/2025 5:[address] [facility] HDL 63 >=40 mg/dL LAB CHEMISTRY METHOD 05/19/2025 5:[address] [facility] LDL Calculated 43 0 - 100 mg/dL LAB [facility]STR[facility]/19[facility]2025 [facility] Comment:Estimated LDL Calcul ated using equation: Total cholesterol - HDL cholesterol - (Triglycerides/5) VLDL Cholesterol Jose G 12.8 mg/dL LAB CHEMISTRY METHOD 05/19/2025 5:[address] [facility] Non HDL Chol. (LDL+VLDL) 56 <145 mg/dL LAB CHEMISTRY METHOD 05/19/2025 5:[address] [facility] Chol/HDL Ratio 1.9 0.0 - 4.4 LAB CHEMISTRY METHOD 05/19/2025 5:[address] [facility] Blood Venous blood specimen / Unknown Venipuncture / Unknown 05/19/2025 9:45 AM EDT 05/19/2025 9:45 AM EDT us Sid Jo MD LAB BLOOD ORDERABLES Final Resu lt [facility] [address] [place] [address], * Basic metabolic panel (05/19/2025 9:45 AM EDT) Only the most recent of3 resultswithin the time period is included. Sodium 135 133 - 145 mmol/L LAB CHEMISTRY METHOD 05/19/2025 4:[address] [facility] Potassium 3.5 3.5 - 5.5 mmol/L LAB CHEMISTRY METHOD 05/19/2025 4:[address] [facility] Chloride 101 96 - 110 mmol/L LAB CHEMISTRY METHOD 05/19/2025 4:58 PM EDT [facility] CO2 28 21 - 32 mmol/L LAB CHEMISTRY METHOD 05/19/2025 4:58 PM EDT [facility] Anion Gap 6 3 - 11 LAB CHEMISTRY METHOD 05/19/2025 4:58 PM EDT [facility] Glucose 88 70 - 100 mg/dL LAB CHEMISTRY METHOD 05/19/2025 4:58 PM EDT [facility] BUN 6 5 - 25 mg/dL LAB CHEMISTRY METHOD 05/19/2025 4:58 PM T [facility] Creatinine 0.67 0.50 - 1.10 mg/dL LAB [facility]STRY [facility]/19[facility]25 4:[facility] eGFR 116 >=60 mL/min/1. 73m2 LAB CHEMISTRY METHOD 05/19/2025 4:58 PM EDT [facility] Comment:Calculation based on the Chronic Kidney Disease Epidemiology Collaboration (CKD-EPI) equation refit without adjustment for race. BUN/Creatinine Ratio 9.0 LAB CHEMISTRY METHOD 05/19/2025 4:[address] [facility] Calcium 9.1 8.5 - 10.5 mg/dL LAB CHEMISTRY METHOD 05/19/2025 4:[address] [facility] Blood Venous blood specimen / Unknown Venipuncture / Unknown 05/19/2025 9:45 AM EDT 05/19/2025 9:45 AM EDT us Sid Jo MD LAB BLOOD ORDERABLES Final Resu lt [facility] [address] [place] [address], * Magnesium (04/11/2025 10:32 AM EDT) Only the most recent of4 resultswithin the time period is included. Magnesium 2.0 1.7 - 2.8 mg/dL LAB CHEMISTRY METHOD 04/11/2025 11:14 AM EDT [facility] Blood Venous blood specimen / Unknown Venipuncture / Unknown 04/11/2025 10:32 AM EDT 04/11/2025 10:40 AM EDT us Reggie Nickerson MD LAB BLOOD ORDERABLES Final Re sult [facility] [address] [place] [address], [place] [phone] * (ABNORMAL) Comprehensive metabolic panel (04/11/2025 10:32 AM EDT) Only the most recent of4 resultswithin the time period is included. Sodium 132(L) 135 - 145 mmol/L LAB CHEMISTRY METHOD 04/11/2025 11:14 AM EDT [facility] Potassium 3.6 3.5 - 5.1 mmol/L LAB CHEMISTRY METHOD 04/11/2025 11:14 AM EDT [facility] Chloride 98 98 - 107 mmol/L LAB CHEMISTRY METHOD 04/11/2025 11:14 AM EDT [facility] CO2 23(L) 24 - 32 mmol/L LAB CHEMISTRY METHOD 04/11/2025 11:14 AM EDT [facility] Anion Gap 11 5 - 14 LAB CHEMISTRY METHOD 04/11/2025 11:14 AM EDT [facility] Glucose 96 70 - 199 mg/dL LAB CHEMISTRY METHOD 04/11/2025 11:14 AM EDT [facility] BUN 12 7 - 17 mg/dL LAB CHEMISTRY METHOD 04/11/2025 11:14 AM EDT [facility] Creatinine 0.50 0.50 - 1.00 mg/dL LAB CHEMISTRY METHOD 04/11/2025 11:14 AM EDT [facility] eGFR 125 >=60 mL/min/1. 73m2 LAB CHEMISTRY METHOD 04/11/2025 11:14 AM EDT [facility] Comment:Calculation based on the Chronic Kidney Disease Epidemiology Collaboration (CKD-EPI) equation refit without adjustment for race. BUN/Creatinine Ratio 24.0(H) 12.0 - 20.0 LAB CHEMISTRY METHOD 04/11/2025 11:14 AM EDT [facility] Calcium 8.9 8.4 - 10.2 mg/dL LAB CHEMISTRY METHOD 04/11/2025 11:14 AM EDT [facility] AST (SGOT) 12 5 - 40 unit/L LAB CHEMISTRY METHOD 04/11/2025 11:14 AM EDT [facility] ALT (SGPT) 12 7 - 52 unit/L LAB CHEMISTRY METHOD 04/11/2025 11:14 AM EDT [facility] Alkaline Phosphatase 66 34 - 104 unit/L LAB CHEMISTRY METHOD 04/11/2025 11:14 AM EDT [facility] Total Protein 6.8 6.4 - 8.5 g/dL LAB CHEMISTRY METHOD 04/11/2025 11:14 AM EDT [facility] Albumin 3.7 3.5 - 5.0 g/dL LAB CHEMISTRY METHOD 04/11/2025 11:14 AM EDT [facility] Total Bilirubin 0.5 0.3 - 1.0 mg/dL LAB CHEMISTRY METHOD 04/11/2025 11:14 AM EDT [facility] Blood Venous blood specimen / Unknown Venipuncture / Unknown 04/11/2025 10:32 AM EDT 04/11/2025 10:40 AM EDT us Leatha Aviles MD LAB BLOOD ORDERABLES Final Result [facility] [address] [place] [address], [place] [phone] * POCT Glucose, blood (04/11/2025 8:23 AM EDT) Only the most recent of21 resultswithin the time period is included. Glucose POCT 85 70 - 199 mg/dL 04/11/2025 8:23 AM EDT [facility] Comment: Fasting Reference Range: 70-99 mg/dL Non-Fasting Reference Range: 70-199 mg/dL Blood Capillary blood specimen / Unknown 04/11/2025 8:23 AM EDT 04/11/2025 8:24 AM EDT us Reggie Nickerson MD LAB POINT OF CARE TE ST DOCKED DEVICE UNSOLICITED RESULTS Final Result [facility] [address] [place] [address], [place] [phone] * Continuous EEG (04/11/2025 7:05 AM EDT) [...] mg, oral, TID PRN, Otto Duffy MD fclfpdmuvapiadk-vjxwsvth-fukkdiyqc-simethicone-lidocaine (MAGIC MOUTHWASH) suspension, 10 mL, Mouth/Throat, 4x daily, Manda Pineda MD, 10 mL at 04/10/251703 [START ON 04/11/2025] hydrocortisone (CORTEF) tablet 10 mg, 10 mg, oral, q AM AND hydrocortisone (CORTEF) tablet 5 mg, 5 mg, oral, Nightly, Otto Duffy MD lacosamide (VIMPAT) injection 50 mg, 50 mg, intravenous, q12h, Otto Duffy MD, 50 mg at 04/10/25811 lamoTRIgine (LaMICtal) tablet 125 mg, 125 mg, [...] predominant Main term 2: Rhythmic delta activity (CERTIFIED VETERINARY TECHNICIAN) + Sharp (S) Prevalence: Occasional (1-9%) Duration: [...] seizures Sterling Hurtado MD Epileptologist/ Staff Neurologist [facility] us Leatha Aviles MD NEUROLOGY ORDERABLES Final Result [facility] * Continuous EEG (04/10/2025 6:07 AM EDT) Narrative [facility] - 04/10/2025 11:20 AM EDT Sterling Dozier [...] mg, oral, TID PRN, Otto Duffy MD vhbrsocaxoxnmal-asdtijom-sisqedotn-simethicone-lidocaine (MAGIC MOUTHWASH) suspension, 10 mL, Mouth/Throat, 4x [...] predominant Main term 2: Rhythmic delta activity (CERTIFIED VETERINARY TECHNICIAN) + Sharp (S) Prevalence: Occasional (1-9%) Duration: [...] encephalopathy Sterling Hurtado MD Epileptologist/ Staff Neurologist [facility] us Leatha Aviles MD NEUROLOGY ORDERABLES [...] tablet 10 mg, 10 mg, oral, Nightly, Madna Pineda MD, 10 mg at 04/08/251943 ghuwngzhvrhdnyy-fczyujff-mlitfwwkf-simethicone-lidocaine (MAGIC MOUTHWASH) suspension, 10 mL, Mouth/Throat, 4x daily, Manda Pineda MD, 10 mL at 04/09/25 100 hydrocortisone sod succinate injection 50 mg, 50 [...] Manda Pineda MD, 500,000 Units at 04/09/25 1003 OXcarbazepine (TRILEPTAL) tablet 150 mg, 150 mg, oral, Daily, Manda Pineda MD, 150 mg at 04/09/25 1004 OXcarbazepine (TRILEPTAL) tablet 300 mg, 300 mg, [...] predominant Main term 2: Rhythmic delta activity (CERTIFIED VETERINARY TECHNICIAN) + Sharp (S) Prevalence: Occasional (1-9%) Duration: [...] seen. Sterling Hurtado MD Epileptologist/ Staff Neurologist [facility] us Leatha Aviles MD NEUROLOGY ORDERABLES Final Result [facility] * Continuous EEG (04/09/2025 6:04 AM EDT) Narrative [facility] - 04/08/2025 8:48 AM EDT Sterling Dozier MD 04/08/2025 8:48 AM Continuous Electroencephalography (EEG) Report Recording Information: Start Time: Apr 07, 2025 22:01 PM End Time: Apr 08, 2025 00:07 AM Duration: 02:06:39 (127 minutes) Recording Techniques Description of procedure: This is a Rapid EEG acquired with a digital gamesGRABR EEG machine with 10 lead, 8 channel system positioned circumferentially, spaced according to the lateral chains of the 10-20 international system of EEG electrode placements. Vertex and paracentral recording electrodes are not included. The entire segments of the EEG were scanned by the attending physician. The gamesGRABR System used the Clarity algorithm to analyze brain activity and detect seizures/status epilepticus to support reading of the EEG. Performed with [employer], gamesGRABR Status Epilepticus Monitor, NTAP ICD-10 PCS Code = [id number] Video recorded: No Clinical Information History: Antoni [...] Nightly, Manda Pineda MD, 80 mg at 04/07/252132 cloBAZam (ONFI) tablet 10 mg, 10 mg, oral, Nightly, Manda Pineda MD, 10 mg at 04/07/252132 fbculkdkgpmgieq-ikduiali-phrznvgos-simethicone-lidocaine (MAGIC MOUTHWASH) suspension, 10 mL, Mouth/Throat, 4x daily, Manda Pineda MD hydrocortisone sod succinate injection 50 mg, 50 mg, intravenous, q6h, Manda iPneda MD, 50 mg at 04/08/2530 lacosamide (VIMPAT) injection 50 mg, 50 mg, intravenous, q12h, Manda Pineda MD, 50 mg at 04/08/25825 lamoTRIgine (LaMICtal) tablet 100 mg, 100 mg, oral, BID, Manda Pineda MD, 100 mg at 04/08/25834 lamoTRIgine (LaMICtal) tablet 25 mg, 25 mg, [...] predominant Main term 2: Rhythmic delta activity (CERTIFIED VETERINARY TECHNICIAN) + Sharp (S) Prevalence: Occasional (1-9%) Duration: [...] seen. Sterling Hurtado MD Epileptologist/ Staff Neurologist [facility] us Leatha Aviles MD NEUROLOGY ORDERABLES Final Result [facility] * (ABNORMAL) CBC auto differential (04/08/2025 8:14 AM EDT) Only the most recent of3 resultswithin the time period is included. WBC 8.3 4.0 - 10.5 K/mcL LAB HEMETOLOGY METHOD 04/08/2025 9:07 AM EDT [facility] RBC 4.79 4.20 - 5.40 M/mcL LAB HEMETOLOGY METHOD 04/08/2025 9:07 AM EDT [facility] Hemoglobin 14.5 12.5 - 16.0 g/dL LAB HEMETOLOGY METHOD 04/08/2025 9:07 AM EDT [facility] Hematocrit 43.9 37.0 - 47.0 % LAB HEMETOLOGY METHOD 04/08/2025 9:07 AM EDT [facility] MCV 91.7 78.0 - 100.0 FL LAB HEMETOLOGY METHOD 04/08/2025 9:07 AM EDT [facility] MCH 30.4 25.0 - 33.0 pcg LAB HEMETOLOGY METHOD 04/08/2025 9:07 AM EDT [facility] MCHC 33.1 32.0 - 36.0 g/dL LAB HEMETOLOGY METHOD 04/08/2025 9:07 AM EDT [facility] RDW 13.3 12.1 - 16.2 % LAB HEMETOLOGY METHOD 04/08/2025 9:07 AM EDT [facility] Platelets 265 150 - 450 K/mcL LAB HEMETOLOGY METHOD 04/08/2025 9:07 AM EDT [facility] MPV 8.5 7.4 - 11.4 FL LAB HEMETOLOGY METHOD 04/08/2025 9:07 AM EDT [facility] Neutrophils Relative 84.7(H) 44.0 - 74.0 % LAB HEMETOLOGY METHOD 04/08/2025 9:07 AM EDT [facility] Lymphocytes Relative 10.9(L) 20.0 - 48.0 % LAB HEMETOLOGY METHOD 04/08/2025 9:07 AM EDT [facility] Monocytes Relative 3.8 2.0 - 12.0 % LAB HEMETOLOGY METHOD 04/08/2025 9:07 AM EDT [facility] Eosinophils Relative 0.1 0.0 - 6.0 % LAB HEMETOLOGY METHOD 04/08/2025 9:07 AM EDT [facility] Basophils Relative 0.5 0.0 - 2.0 % LAB HEMETOLOGY METHOD 04/08/2025 9:07 AM T [facility] Neutrophils Absolute 7.00 1.80 - 7.80 K/mcL LAB HEMETOLOGY METHOD 04/08/2025 9:07 AM EDT [facility] Lymphocytes Absolute 0.90(L) 1.00 - 3.20 K/mcL LAB HEMETOLOGY METHOD 04/08/2025 9:07 AM EDT [facility] Monocytes Absolute 0.30 0.00 - 0.80 K/mcL LAB HEMETOLOGY METHOD 04/08/2025 9:07 AM EDT [facility] Eosinophils Absolute 0.00 0.00 - 0.50 K/mcL LAB HEMETOLOGY METHOD 04/08/2025 9:07 AM EDT [facility] Basophils Absolute 0.00 0.00 - 0.20 K/mcL LAB HEMETOLOGY METHOD 04/08/2025 9:07 AM EDT [facility] Blood Venous blood specimen / Unknown Venipuncture / Unknown 04/08/2025 8:14 AM EDT 04/08/2025 8:57 AM EDT Leatha Aviles MD LAB BLOOD ORDERABLES Final Result [facility] [address] [place] [address], [place] [phone] * (ABNORMAL) Oxcarbazepine level (04/08/2025 8:14 AM EDT) Only the most recent of2 resultswithin the time period is included. Oxcarbazepine 4.1(L) 10 - 35 ug/mL 04/12/2025 1:41 PM EDT [facility] Comment: If applicable, any drug confirmation testing reported here was developed and the performance characteristics determined by [facility]. This confirmation testing has not been cleared or approved by the FDA. The laboratory is regulated under CLIA as qualified to perform high-complexity testing. This test is used for patient testing purposes. It should not be regarded as investigational or for research. Test performed at [facility], [address] , [place] [address] Leisa Barragan MD, PhD - Certified Master [employer] Blood Venous blood specimen / Unknown Venipuncture / Unknown 04/08/2025 8:14 AM EDT 04/08/2025 8:57 AM EDT us Leatha Aviles MD LAB BLOOD ORDERABLES Final Result Performing Organization Address City/[facility]/ZIP Co de Phone Number [facility] [address] [place] [address] * Levetiracetam level (04/08/2025 8:14 AM EDT) Levetiracetam 12.1 3.0 - 60.0 ug/mL 04/12/2025 6:[address] [facility] Comment: Steady state trough serum or plasma levels following doses of 1000 to 3000 mg/Day: 3 to 37 ug/mL. The same dosage regimen will typically result in peak levels of 10 to 60 ug/mL, at approximately 1.5 hours post dose. If applicable, any drug confirmation testing reported here was developed and the performance characteristics determined by [facility] [facility]. This confirmation testing has not been cleared or approved by the FDA. The laboratory is regulated under CLIA as qualified to perform high-complexity testing. This test is used for patient testing purposes. It should not be regarded as investigational or for research. Test performed at [facility], [address] [facility], [place] [address] Leisa Barragan MD, PhD - Certified Master Locksmith Blood Venous blood specimen / Unknown Venipuncture / Unknown 04/08/2025 8:14 AM EDT 04/08/2025 8:57 AM EDT us Leatha Aviles MD LAB BLOOD ORDERABLES Final Result Performing Organization Address City/[facility]/ZIP Co de Phone Number [facility] [address] [place] [address] * (ABNORMAL) Thyroid stimulating hormone (04/08/2025 8:14 AM EDT) TSH 0.25(L) 0.45 - 5.33 mcIU/mL LAB CHEMISTRY METHOD 04/08/2025 9:54 AM EDT [facility] Blood Venous blood specimen / Unknown Venipuncture / Unknown 04/08/2025 8:14 AM EDT 04/08/2025 8:57 AM EDT Leatha Aviles MD LAB BLOOD ORDERABLES Final Result Performing Organization Address City/[facility]/ZIP Co de Phone Number [facility] [address] [place] [address], * Thyroxine free (04/08/2025 8:14 AM EDT) [facility] Signature Free T4 0.70 0.50 - 1.30 ng/dL LAB CHEMISTRY METHOD 04/10/2025 10:21 AM EDT [facility] Blood Venous blood specimen / Unknown Venipuncture / Unknown 04/08/2025 8:14 AM EDT 04/08/2025 8:57 AM EDT Reggie Nickerson MD LAB BLOOD ORDERABLES Final Re sult Performing Organization Address [facility]/ZIP Co de Phone Number [facility] [address] [place] [address], [place] [phone] * ECG-Annotated (04/08/2025) Provider Onbase ECG ORDERABLES [...] study. -------- FINAL REPORT -------- Dictated By: Citlaly, Parshant Dictated Date: 04/06/2025 13:32 ET Assigned Physician: Doni Boucher Reviewed and Electronically Signed By: Doni Boucher Signed Date: 04/06/2025 13:35 ET Workstation ID: [id number] Transcribed By: Self Edit Transcribed Date: 04/06/2025 13:32 ET Narrative 04/06/2025 1:35 PM EDT INDICATION: Headache, classic migraine; breakthrough seizure Technique: Axial images were obtained from the skull base to the vertex without contrast enhancement. Scanner: GE LightSpeed 64 slice VCT Dose reduction technique: ASIR [...] base to the vertexwithout contrast enhancement. Scanner: GE LightSpeed 64 slice VCT Dose reduction technique: ASIR [...] Signed Date: 04/06/2025 13:35 ET Workstation ID: [id number] Transcribed By: Self Edit Transcribed Date: 04/06/2025 13:32 ET us Carlie Morales MD IMG CT PROCEDURES Final Result * Phosphorus (04/06/2025 5:25 AM EDT) Only the most recent of2 resultswithin the time period is included. Phosphorus 3.3 2.5 - 4.5 mg/dL LAB CHEMISTRY METHOD 04/06/2025 7:16 AM EDT [facility] Blood Venous blood specimen / Unknown Venipuncture / Unknown 04/06/2025 5:25 AM EDT 04/06/2025 6:15 AM EDT us Carlie Morales MD LAB BLOOD ORDERABLES Final Resu lt [facility] [address] [place] [address], [place] [phone] * CT Chest wo Contrast (04/05/2025 9:41 [...] lymphadenopathy. 5. Small hiatal hernia. [place] ([id number]) -------- FINAL REPORT -------- Dictated By: Ludy Duran Dictated Date: 04/05/2025 09:45 ET Assigned Physician: Ludy Duran Reviewed and Electronically Signed By: Ludy Duran Signed Date: 04/05/2025 09:50 ET Workstation ID: [id number] Transcribed By: Self Edit Transcribed Date: 04/05/2025 09:45 ET Narrative 04/05/2025 9:50 AM EDT History: Recurrent aspiration pneumonia. Comparison: 10/15/24 Technique: Helical volumetric imaging of the thorax was performed without IV contrast. DLP: 436.56 mGy/cm [employer] Kershaw Iterative reconstruction technique Findings: Evaluation of the [...] was performed withoutIV contrast. DLP: 436.56 mGy/cm [email or web address] Iterative reconstruction technique Findings: Evaluation of the [...] developing thoracic lymphadenopathy. 5. Small hiatal hernia. [place] ([id number]) -------- FINAL REPORT -------- Dictated By: Ludy Duran Dictated Date: 04/05/2025 09:45 ET Assigned Physician: Ludy Duran Reviewed and Electronically Signed By: Ludy Duran Signed Date: 04/05/2025 09:50 ET Workstation ID: [id number] Transcribed By: Self Edit Transcribed Date: 04/05/2025 09:45 ET Diana LE IMG CT PROCEDURES Final Result * Complete blood count (04/05/2025 5:20 AM EDT) WBC 10.6 4.8 - 10.8 K/mcL LAB [facility]EM[facility]OLOGY [facility] RBC 4.70 3.80 - 4.80 M/mcL LAB HEMETOLOGY METHOD [facility]/05[facility]2025 6[facility] Hemoglobin 14.4 11.5 - 16.0 g/dL LAB HEMETOLOGY METHOD 04/05/2025 6:[address] [facility] Hematocrit 43.0 35.0 - 47.0 % LAB HEMETOLOGY METHOD 04/05/2025 6:[address] [facility] MCV 90.9 79.0 - 98.0 FL LAB HEMETOLOGY METHOD 04/05/2025 6:[address] [facility] MCH 30.4 27.0 - 32.0 pcg LAB HEMETOLOGY METHOD 04/05/2025 6:31 AM EDT [facility] MCHC 33.5 32.0 - 37.0 g/dL LAB HEMETOLOGY METHOD 04/05/2025 6:31 AM EDT [facility] RDW 12.4 11.0 - 15.0 % LAB HEMETOLOGY METHOD 04/05/2025 6:31 AM EDT [facility] Platelets 295 130 - 400 K/mcL LAB HEMETOLOGY METHOD 04/05/2025 6:31 AM EDT [facility] MPV 10.5 7.0 - 11.0 FL LAB HEMETOLOGY METHOD 04/05/2025 6:31 AM EDT [facility] NRBC 0.0 <1.0 % LAB HEMETOLOGY METHOD 04/05/2025 6:31 AM EDT [facility] NRBC Absolute 0.00 <0.10 K/mcL LAB HEMETOLOGY METHOD 04/05/2025 6:31 AM EDT [facility] Blood Venous blood specimen / Unknown Venipuncture / Unknown 04/05/2025 5:20 AM EDT 04/05/2025 6:12 AM EDT us Yue Zavala MD LAB BLOOD ORDERABLES Final Res ult [facility] [address] [place] [address], * (ABNORMAL) Osmolality (04/05/2025 5:20 AM EDT) Osmolality Bertin 274(L) 280 - 300 mOsm/kg LAB CHEMISTRY METHOD 04/05/2025 10:14 AM EDT [facility] Blood Venous blood specimen / Unknown Venipuncture / Unknown 04/05/2025 5:20 AM EDT 04/05/2025 6:12 AM EDT Carlie Morales MD LAB BLOOD ORDERABLES Final Resu lt Performing Organization Address [facility]/ZIP Co de Phone Number [facility] [address] [place] [address], [place] [phone] * Creatine kinase (04/05/2025 5:20 AM EDT) Total CK 61 22 - 269 unit/L LAB CHEMISTRY METHOD 04/05/2025 9:42 AM EDT [facility] Blood Venous blood specimen / Unknown Venipuncture / Unknown 04/05/2025 5:20 AM EDT 04/05/2025 6:12 AM EDT us Carlie Morales MD LAB BLOOD ORDERABLES Final Resu lt Performing Organization Address [facility] Co de Phone Number [facility] [address] [place] [address], [place] [phone] * Lactate, with Reflex (04/04/2025 6:44 PM EDT) LACTIC ACID 1.7 0.4 - 2.0 mmol/L LAB CHEMISTRY METHOD 04/04/2025 7:26 PM EDT [facility] Blood Venous blood specimen / Unknown Venipuncture / Unknown 04/04/2025 6:44 PM EDT 04/04/2025 6:50 PM EDT us Wendie Cooper MD LAB BLOOD ORDERABLES Final Resul t Performing Organization Address City/[facility]/ZIP Co de Phone Number [facility] [address] [place] [address], [place] [phone] * Lamotrigine level (04/04/2025 6:44 PM EDT) Lamotrigine (Lamictal) Level 5.9 2.0 - 15.0 ug/mL 04/07/2025 12:[address] [facility] Comment: Lamotrigine toxic level: >20 ug/mL The reference range is not well established. It may be as wide as 1 - 20 ug/mL. If applicable, any drug confirmation testing reported here was developed and the performance characteristics determined by [facility]. This confirmation testing has not been cleared or approved by the FDA. The laboratory is regulated under CLIA as qualified to perform high-complexity testing. This test is used for patient testing purposes. It should not be regarded as investigational or for research. Test performed at [facility], [address] , [place] [address] Leisa Barragan MD, PhD - Certified Master Locksmith Blood Venous blood specimen / Unknown Venipuncture / Unknown 04/04/2025 6:44 PM EDT 04/04/2025 6:49 PM EDT Wendie Cooper MD LAB BLOOD ORDERABLES Final Resul t [facility] [address] [place] [address] * [id number], RSV, Influenza A and B qualitative RT-PCR (04/04/2025 1:28 PM EDT) Influenza A PCR Not Detected Not Detected LAB MICROBIOLOGY METHOD 04/04/2025 2:51 PM EDT [facility] Influenza B PCR Not Detected Not Detected LAB MICROBIOLOGY METHOD 04/04/2025 2:51 PM EDT [facility] RSV PCR Not Detected Not Detected LAB MICROBIOLOGY METHOD 04/04/2025 2:51 PM EDT [facility] SARS COV-2 Not Detected Not Detected LAB MICROBIOLOGY METHOD 04/04/2025 2:51 PM EDT [facility] Swab Both anterior nares / Unknown Non-blood Collection / Unknown 04/04/2025 1:28 PM EDT 04/04/2025 2:08 PM EDT [facility] - 04/04/2025 2:51 PM EDT Disclaimer: Testing was performed using the [employer] GeneXpert Xpress SARS-CoV-2 _Flu_RSV PLUS PCR assay. [...] for Healthcare providers can be found at https://www.fda.gov/media/942328/download. Fact sheet for Healthcare patients can be found at https://www.fda.gov/media/615285/download. us Wendie Cooper MD LAB MICROBIOLOGY - GENERAL ORDER UTE Final Result [facility] [address] [place] [address], * ECG 12 lead (04/04/2025 11:02 AM EDT) Ventricular Rate ECG 93 BPM GEMUSE Atrial Rate 93 BPM GEMUSE P-R Interval 160 ms GEMUSE QRS Duration 76 ms GEMUSE Q-T Interval 350 ms GEMUSE QTc 435 ms GEMUSE P Wave [place] 30 degrees GEMUSE R [place] 56 degrees GEMUSE T [place] -7 degrees GEMUSE ECG Interpretation Normal sinus [...] Organization Address [facility] de Phone Number GEMUSE * Prolactin (04/04/2025 10:40 AM EDT) Pathologist [facility] Prolactin 5.30 See Comment ng/mL LAB CHEMISTRY METHOD 04/04/2025 11:30 AM EDT [facility] Comment: Prolactin Reference Ranges (ng/mL) Non 2.2 - 30.3 8.1 - 347.6 Postmenopausal 0.7 - 31.5 Blood Venous blood specimen / Unknown Venipuncture / Unknown 04/04/2025 10:40 AM EDT 04/04/2025 10:52 AM EDT us Wendie Cooper MD LAB BLOOD ORDERABLES Final Resul t Performing Organization Address [facility] de Phone Number [facility] [address] [place] [address], [place] [phone] * hCG, serum, qualitative (04/04/2025 10:40 AM EDT) [facility] hCG Qual Negative Negative 04/04/2025 8:36 PM EDT [facility] Blood Venous blood specimen / Unknown Venipuncture / Unknown 04/04/2025 10:40 AM EDT 04/04/2025 10:52 AM EDT us Wendie Cooper MD LAB BLOOD ORDERABLES Final Resul t Performing Organization Address [facility] Co de Phone Number [facility] [address] [place] [address], [place] [phone] * (ABNORMAL) Carbamazepine level, total (Tegretol) (04/04/2025 10:40 AM EDT) Carbamazepine Level <0.5(L) 8.0 - 12.0 mcg/mL LAB CHEMISTRY METHOD 04/04/2025 2:09 PM EDT [facility] Blood Venous blood specimen / Unknown Venipuncture / Unknown 04/04/2025 10:40 AM EDT 04/04/2025 10:52 AM EDT us Wendie Cooper MD LAB BLOOD ORDERABLES Final Resul t [facility] [address] [place] [address], [place] [phone] * DC CRITICAL CARE 30-74 MINUTES (04/04/2025 9:57 AM [...] or life-threatening deterioration of the following conditions: RN APPEALS failure or compromise Critical care was time [...] Hepatitis C antibody (02/27/2025 8:54 AM EDT) Pathologist [facility] Hepatitis C Antibody Negative Negative LAB CHEMISTRY METHOD 02/27/2025 1:23 PM EDT [facility] Blood Venous blood specimen / Unknown Venipuncture / Unknown 02/27/2025 8:54 AM EDT 02/27/2025 8:54 AM EDT Ileana Theodore DIRECTOR ACUTE LAB BLOOD ORDERABLES Final Resu lt [facility] [address] [place] [address], * Depression Screening (05/11/2024) Pathologist [facility] Depression Screening abstracted Historical Provider HEALTH MAINTENANCE Final Result from Last 3 Months or Most Recently Relevant to Health Maintenance Insurance [place]ARE [place]ICA[place] Advance Directives Documents on File Type Date Recorded Patient Dermatology Physician Expl anation Advance Directives and Living Will 04/12/2025 1:20 PM Power of Manager Respiratory Care 04/12/2025 1:20 PM Advance Directives and Living Will 04/10/2025 9:35 AM PROXY Power of Manager Respiratory Care 04/05/2025 10:49 AM Dura ble Power of Manager Respiratory Care Power of Manager Respiratory Care 04/05/2025 10:47 AM Dura ble Power of [...] Agents on File Name Relationship Healthcare Agent [facility] Communication Codey Lynne [facility] Health Care Agent Stanislaw Benites [facility] Health Care Agent Care Teams Senior [employer] Relationship Specialty Start Date End Date Sid Jo MD [address] [place] [phone] PCP - General Internal Medicine 06/29/24
--- OUTSIDE RECORDS SUMMARY | 2025-06-18 15:59 | XMS_ITS | Clinical Summary ---
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
--- OUTSIDE RECORDS SUMMARY | 2025-06-18 15:59 | XMS_ITS ---
Author Name [facility] Organization Unknown Results Test Name/Text Value Interpretation Date Range Source Magnesium SerPl-mCnc 2.0 mg/dL 04/11/2025 1.7 - 2. 8 [facility] Chloride SerPl-sCnc 98.0 mmol/L 04/11/2025 98 - 10 7 [facility] Bilirub SerPl-mCnc 0.5 mg/dL 04/11/2025 0.3 - 1 [facility] BUN SerPl-mCnc 12.0 mg/dL 04/11/2025 7 - 17 [facility] Calcium SerPl-mCnc 8.9 mg/dL 04/11/2025 8.4 - 10.2 [facility] BUN/Creat SerPl 24.0 Above high normal 04/11/2025 12 - 20 [facility] Glucose SerPl-mCnc 96.0 mg/dL 04/11/2025 70 - 199 [facility] Creat SerPl-mCnc 0.5 mg/dL 04/11/2025 0.5 - 1 CT [facility] ALP SerPl-cCnc 66.0 unit/L 04/11/2025 34 - 104 CT [facility] CO2 SerPl-sCnc 23.0 mmol/L Below low normal 04/11/2025 24 - 32 [facility] eGFRcr SerPlBld CKD-EPI 2020 125.0 mL/min/1.73m 2 04/11/2025 - [facility] Prot SerPl-mCnc 6.8 g/dL 04/11/2025 6.4 - 8.5 [facility] ALT SerPl-cCnc 12.0 unit/L 04/11/2025 7 - 52 CT [facility] AST SerPl-cCnc 12.0 unit/L 04/11/2025 5 - 40 CT [facility] Albumin SerPl-mCnc 3.7 g/dL 04/11/2025 3.5 - 5 [facility] Anion Gap SerPl Calc-sCnc 11.0 04/11/2025 5 - 14 [facility] Potassium SerPl-sCnc 3.6 mmol/L 04/11/2025 3.5 - 5 .1 [facility] Sodium SerPl-sCnc 132.0 mmol/L Below low normal 04/11/2025 1 35 - 145 [facility] Glucose Bld-mCnc 85.0 mg/dL 04/11/2025 70 - 199 C [facility] Glucose Bld-mCnc 117.0 mg/dL 04/11/2025 70 - 199 [facility] Glucose Bld-mCnc 128.0 mg/dL 04/10/2025 70 - 199 [facility] Glucose Bld-mCnc 96.0 mg/dL 04/10/2025 70 - 199 C [facility] Potassium SerPl-sCnc 3.0 mmol/L Below low normal 04/09/2025 3.5 - 5.1 [facility] AST SerPl-cCnc 12.0 unit/L 04/09/2025 5 - 40 CT _[facility] Anion Gap SerPl Calc-sCnc 11.0 04/09/2025 5 - 14 [facility] ALT SerPl-cCnc 13.0 unit/L 04/09/2025 7 - 52 CT [facility] BUN/Creat SerPl 16.0 04/09/2025 12 - 20 [facility] BUN SerPl-mCnc 8.0 mg/dL 04/09/2025 7 - 17 [facility] Bilirub SerPl-mCnc 0.5 mg/dL 04/09/2025 0.3 - 1 [facility] Sodium SerPl-sCnc 132.0 mmol/L Below low normal 04/09/2025 1 35 - 145 [facility] CO2 SerPl-sCnc 24.0 mmol/L 04/09/2025 24 - 32 CT [facility] Albumin SerPl-mCnc 4.1 g/dL 04/09/2025 3.5 - 5 [facility] Chloride SerPl-sCnc 97.0 mmol/L Below low normal 04/09/2025 98 - 107 [facility] Creat SerPl-mCnc 0.5 mg/dL 04/09/2025 0.5 - 1 CT [facility] Glucose SerPl-mCnc 108.0 mg/dL 04/09/2025 70 - 199 [facility] eGFRcr SerPlBld CKD-EPI 2020 125.0 mL/min/1.73m 2 04/09/2025 - [facility] Prot SerPl-mCnc 7.5 g/dL 04/09/2025 6.4 - 8.5 [facility] ALP SerPl-cCnc 66.0 unit/L 04/09/2025 34 - 104 CT [facility] Calcium SerPl-mCnc 9.3 mg/dL 04/09/2025 8.4 - 10.2 [facility] Glucose Bld-mCnc 118.0 mg/dL 04/09/2025 70 - 199 [facility] Glucose Bld-mCnc 98.0 mg/dL 04/08/2025 70 - 199 C [facility] 10OH-Carbazepine SerPl-mCnc 4.1 ug/mL Below low normal 04/12/2025 10 - 35 [facility] levETIRAcetam SerPl-mCnc 12.1 ug/mL 04/12/2025 3 - 60 [facility] T4 Free SerPl-mCnc 0.7 ng/dL 04/10/2025 0.5 - 1.3 [facility] TSH SerPl DL<=0.005 mIU/L-aCnc 0.25 mcIU/mL Below low normal 04/08/2025 0.45 - 5.33 [facility] Anion Gap SerPl Calc-sCnc 10.0 04/08/2025 5 - 14 [facility] Creat SerPl-mCnc 0.4 mg/dL Below low normal 04/08/2025 0.5 - 1 [facility] ALP SerPl-cCnc 60.0 unit/L 04/08/2025 34 - 104 CT [facility] BUN SerPl-mCnc 6.0 mg/dL Below low normal 04/08/2025 7 - 17 [facility] ALT SerPl-cCnc 13.0 unit/L 04/08/2025 7 - 52 CT [facility] Sodium SerPl-sCnc 133.0 mmol/L Below low normal 04/08/2025 1 35 - 145 [facility] Glucose SerPl-mCnc 89.0 mg/dL 04/08/2025 70 - 199 [facility] CO2 SerPl-sCnc 23.0 mmol/L Below low normal 04/08/2025 24 - 32 [facility] AST SerPl-cCnc 13.0 unit/L 04/08/2025 5 - 40 CT [facility] Prot SerPl-mCnc 7.3 g/dL 04/08/2025 6.4 - 8.5 [facility] Chloride SerPl-sCnc 100.0 mmol/L 04/08/2025 98 - 1 07 [facility] Albumin SerPl-mCnc 4.0 g/dL 04/08/2025 3.5 - 5 [facility] Potassium SerPl-sCnc 3.4 mmol/L Below low normal 04/08/2025 3.5 - 5.1 [facility] BUN/Creat SerPl 15.0 04/08/2025 12 - 20 [facility] eGFRcr SerPlBld CKD-EPI 2020 132.0 mL/min/1.73m 2 04/08/2025 - [facility] Bilirub SerPl-mCnc 0.4 mg/dL 04/08/2025 0.3 - 1 [facility] Calcium SerPl-mCnc 8.9 mg/dL 04/08/2025 8.4 - 10.2 [facility] Magnesium SerPl-mCnc 2.0 mg/dL 04/08/2025 1.7 - 2. 8 [facility] Eosinophil # Bld Auto 0.0 K/mcL 04/08/2025 0 - 0.5 [facility] Monocytes NFr Bld Auto 3.8 % 04/08/2025 2 - 12 [facility] Eosinophil NFr Bld Auto 0.1 % 04/08/2025 0 - 6 [facility] Monocytes # Bld Auto 0.3 K/mcL 04/08/2025 0 - 0.8 [facility] PMV Bld Auto 8.5 FL 04/08/2025 7.4 - 11.4 [facility] Lymphocytes NFr Bld Auto 10.9 % Below low normal 04/08/2025 20 - 48 [facility] Basophils NFr Bld Auto 0.5 % 04/08/2025 0 - 2 [facility] Neutrophils # Bld Auto 7.0 K/mcL 04/08/2025 1.8 - 7.8 [facility] Platelet # Bld Auto 265.0 K/mcL 04/08/2025 150 - 4 50 [facility] Hct VFr Bld Auto 43.9 % 04/08/2025 37 - 47 CT [facility] Hgb Bld-mCnc 14.5 g/dL 04/08/2025 12.5 - 16 [facility] MCHC RBC Auto-EntMCnc 33.1 g/dL 04/08/2025 32 - 36 [facility] RDW RBC Auto 13.3 % 04/08/2025 12.1 - 16.2 [facility] MCH RBC Qn Auto 30.4 pcg 04/08/2025 25 - 33 [facility] Basophils # Bld Auto 0.0 K/mcL 04/08/2025 0 - 0.2 [facility] Neutrophils NFr Bld Auto 84.7 % Above high normal 04/08/2025 44 - 74 [facility] RBC # Bld Auto 4.79 M/mcL 04/08/2025 4.2 - 5.4 [facility] RBC Auto 91.7 FL 04/08/2025 78 - 100 [facility] WBC # Bld Auto 8.3 K/mcL 04/08/2025 4 - 10.5 [facility] Lymphocytes # Bld Auto 0.9 K/mcL Below low normal 04/08/2025 1 - 3.2 [facility] Glucose Bld-[facility] 121.0 mg/dL 04/08/2025 70 - 199 [facility] History of Medication Use Medication Directions Dispensed Refills Start Date End Date Stat levETIRAcetam (KEPPRA) tablet 750 mg 750 mg, oral, 2 times daily, First dose on Thu04/11/25 at 2100 04/12/2025 active hydrocortisone (CORTEF) tablet 10 mg [Order 1 Start] Name: hydrocortisone (CORTEF) tablet 10 mg Signed Summary: 10 mg, oral, Every morning, First dose on Thu04/11/25 at 0700 [Order 1 End] [Order 2 Start] Name: hydrocortisone (CORTEF) tablet 5 mg Signed Summary: 5 mg, oral, Nightly, First dose on Thu04/10/25 at 2100 [Order 2 End] 04/11/2025 active lacosamide (VIMPAT) 50 mg tablet Take 1 tablet (50 mg total) by mouth 2 (two) times a day. Max Daily Amount: 100 mg 04/11/2025 active levETIRAcetam (KEPPRA) 750 mg tablet Take 1 tablet (750 mg total) by mouth 2 (two) times a day. 04/11/2025 active lamoTRIgine (LaMICtal) tablet 125 mg 125 mg, oral, 2 times daily, First dose on Thu04/09/25 at 2100 04/10/2025 active clonazePAM (KlonoPIN) 0.5 mg tablet Take 1 tablet (0.5 mg total) by mouth 3 (three) times a day if needed for seizures. Max Daily Amount: 1.5 mg 04/09/2025 active OXcarbazepine (TRILEPTAL) tablet 300 mg 300 mg, oral, Nightly, First dose (after last modification) on Thu04/08/25 at 2100, Via NG tube Hazardous Medication Intact: - Single pair of ASTM standard [id number] certified gloves - Eye/face protection if vomit or potential to spit up Manipulated: - Double pair of ASTM standard [id number] certified glove 04/09/2025 active levETIRAcetam (KEPPRA) injection 750 mg 750 mg, intravenous, Administer over 5 Minutes, 2 times daily, First dose (after last modification) on Thu04/08/25 at 0900, IV push over 5 minutes for doses up to 1500 mg. 04/08/2025 aborted aspirin EC tablet 325 mg 325 mg, oral, Daily, First dose on 04/08/25 at 0900, Do not crush, chew, or split. 04/08/2025 active atorvastatin (LIPITOR) tablet 80 mg 80 mg, oral, Nightly, First dose on Thu04/07/25 at 2115 04/08/2025 active cloBAZam (ONFI) tablet 10 mg 10 mg, oral, Nightly, First dose (after last modification) on Thu04/07/25 at 2100, Hazardous Medication Intact: - Single pair of ASTM standard [id number] certified gloves - Eye/face protection if vomit or potential to spit up Manipulated: - Double pair of ASTM standard [id number] certified gloves - Eye/face 04/08/2025 active levothyroxine (SYNTHROID, LEVOTHROID) tablet 50 mcg 50 mcg, oral, User specified (Once per day on Thursday), First dose on 04/08/25 at 0600, ORAL ROUTE: take on an empty stomach and separate from other medications. ENTERAL TUBE ROUTE: If newly initiated enteral nutrition duration is over 5 days, hold entera 04/08/2025 active OXcarbazepine (TRILEPTAL) tablet 150 mg 150 mg, oral, Daily, First dose (after last modification) on 04/08/25 at 0900, Via NG tube Hazardous Medication Intact: - Single pair of ASTM standard [id number] certified gloves - Eye/face protection if vomit or potential to spit up Manipulated: - Double pair of ASTM standard [id number] certified gloves 04/08/2025 active hydrocortisone sod succinate injection 50 mg 50 mg, intravenous, Every 8 hours, First dose (after last modification) on 04/09/25 at 2245, For IV or IM injection, prepare solution by aseptically adding not more than 2 mL of Bacteriostatic Water for Injection or Bacteriostatic Sodium Chloride Injection to the contents of one vial. 04/07/2025 aborted lacosamide (VIMPAT) injection 50 mg 50 mg, intravenous, Administer over 5 Minutes, Every 12 hours, First dose (after last reorder) on 04/09/25 at 2100, For 7 doses, IV push over 5 minutes for doses up to 400 mg. 04/07/2025 5 aborted levETIRAcetam (KEPPRA) injection Infuse 2.5 mL (250 mg total) into a venous catheter 2 (two) times a day for 2 doses. 04/07/2025 5 aborted LORazepam (ATIVAN) injection 2 mg 2 mg, intravenous, Every 4 hours PRN, seizures, Starting on 04/09/25 at 1131, Prior to IV use, lorazepam injection should be DILUTED with an equal volume of compatible solution; Rate of administration should NOT exceed 2 mg/min. 04/07/2025 active nystatin (MYCOSTATIN) 100,000 unit/mL suspension 500,000 Units 500,000 Units, Swish & Swallow, 4 times daily, First dose (after last reorder) on 04/09/25 at 1700, For 6 doses 04/07/2025 5 completed sodium chloride 0.9 % infusion 75 mL/hr, intravenous, Continuous, Starting on Thu04/07/25 at 2045 04/07/2025 aborted diphenhydramine-alu rnfjy-qflltxfsz-kax ethicone-lidocaine (MAGIC MOUTHWASH) suspension 10 mL, Mouth/Throat, 4 times daily, First dose (after last modification) on 04/08/25 at 0900 04/07/2025 active OXcarbazepine (TRILEPTAL) 300 mg tablet Take 1 tablet (300 mg total) by mouth at bedtime. 04/07/2025 active pantoprazole (PROTONIX) EC tablet 40 mg 40 mg, oral, Every morning before breakfast, First dose on 04/10/25 at 1545, Do not crush, chew, or split. 02/08/2025 active cloBAZam (ONFI) 10 mg tablet TAKE 1 TABLET BY MOUTH AT BEDTIME 01/23/2025 active levothyroxine (SYNTHROID, LEVOTHROID) 50 mcg tablet Take 1 tab daily 6 days a week 06/30/2024 active sodium chloride tablet 1 g 10/29/2023 active lamoTRIgine (LaMICtal) tablet 100 mg 100 mg, oral, 2 times daily, First dose (after last modification) on Thu04/07/25 at 2100, Via NG tube 02/23/2023 5 aborted lamoTRIgine (LaMICtal) tablet 25 mg 25 mg, oral, 2 times daily, First dose (after last modification) on Thu04/07/25 at 2100, Via NG tube 02/23/2023 5 aborted ascorbic acid (VITAMIN C) 500 mg chewable tablet Chew 2 tablets (1,000 mg total) 1 (one) time each day. 07/23/2022 active buffered aspirin (BUFFERIN) 325 mg tablet Take 1 tablet (325 mg total) by mouth 1 (one) time each day. active ferrous sulfate 325 mg (65 mg iron) EC tablet Take 1 tablet (325 mg total) by mouth 3 (three) times a day with meals. Do not crush, chew, or split. active hydrocortisone (CORTEF) 5 mg tablet Take 1 tablet (5 mg total) by mouth 1 (one) time each day. Take 2 tablets (10 mg) in the morning and 1 tablet (5 mg) in the evening active Allergies Allergen Reaction Severity Comment Documented Date Source Status SULFAMETHOXAZOLE -TRIMETHOPRIM SEIZURES 02/10/2025 [facility] active LINEZOLID 02/23/2023 [facility] active AMOXICILLIN-POT CLAVULANATE GI INTOLERANCE 05/06/2020 [facility] active VALPROIC ACID Hyponatremia a nd thrombocytopenia 10/2806/23/2007 [facility] active CARBAMAZEPINE RASH 03/15/2006 [facility] active GABAPENTIN RASH 03/15/2006 [facility] active ZONISAMIDE RASH 03/15/2006 [facility] active Problems Problem Status Onset Date Problem Type Date of Resoluti on Source Mild intellectual disability active 2006-05-04 ProblemAct [facility] 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-29 ProblemAct [facility] Hepatitis active 2007-03-23 ProblemAct [facility] Allergic rhinitis active 2006-06-19 ProblemAct [facility] 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 2007-11-03 ProblemAct [facility] Hypothyroidism active 2006-06-19 ProblemAct [facility] Congenital transverse deficiency of lower limb active 2006-06-19 ProblemAct [facility] [place] [place] [facility] [place] active 2006-05-04 ProblemAct [facility] Hearing loss active 2009-11-22 ProblemAct [facility] Hyponatremia active 2008-05-17 ProblemAct [facility] [place] [place] [facility] [place] active 2025-04-07 ProblemAct [facility] Esophagitis active 2024-10-16 ProblemAct [facility] Recurrent seizures [place] [place] [facility] [place] active 2025-04-04 ProblemAct [facility] PDD (pervasive developmental disorder) active 2006-06-19 ProblemAct [facility] Multifocal pneumonia active 2024-10-15 ProblemAct [facility] Anemia active 2024-05-24 ProblemAct [facility] Neurofibromatosis [place] [place] [facility] [place] active 2006-05-04 ProblemAct [facility] Malignant neoplasm of brain [place] [place] [facility] [place] active 2006-06-19 ProblemAct [facility] Late effect of cerebrovascular accident (CVA) active 2020-11-02 ProblemAct [facility] Immunizations Vaccine Date Source Lot Number Status COVID-19 (Wally/Comirnaty) 12yo and older 06/24/2024 [facility] completed Influenza trivalent, 0.5mL, preservative free (Fluarix; FluLaval; Fluzone) ages 6mo and older (Afluria) 3 years and older 06/18/2024 [facility] [id number] completed Influenza Quadravalent, MDCK , 0.5ml, preservative free (Flucelvax) 6mo and older 07/23/2023 [facility] [id number] completed Influenza Quadravalent, MDCK , 0.5ml, preservative free (Flucelvax) 6mo and older 06/24/2022 [facility] [id number] completed Wally SARS-CoV-2 COVID-19, mRNA, LNP-S, preservative free 08/22/2021 [facility] completed Influenza Quadravalent, MDCK , 0.5ml, preservative free (Flucelvax) 6mo and older 06/19/2021 [id number] Pfizer SARS-CoV-2 COVID-19, mRNA, LNP-S, preservative free 01/23/2021 [facility] [id number] completed Influenza Quadravalent, MDCK , 0.5ml, preservative free (Flucelvax) 6mo and older 07/05/2020 [facility] [id number] completed Influenza Quadravalent, MDCK , 0.5ml, preservative free (Flucelvax) 6mo and older 06/10/2019 [facility] [id number] completed Influenza trivalent, 0.5mL ( Fluzone High-dose) 65yo and older 08/20/2018 [facility] comple daniel Influenza Quadravalent, MDCK , 0.5ml, with preservative (Flucelvax) 6mo and older 07/04/2018 [facility] [id number] completed Td Tetanus diptheria (Tdvax) 7yo and older 11/19/2017 [facility] [id number] completed Influenza Quadravalent, MDCK , 0.5ml, with preservative (Flucelvax) 6mo and older 05/18/2017 [facility] [id number] completed Influenza trivalent, with pr eservative (Fluzone; Afluria) 6mo and older 06/26/2016 [facility] [id number] completed Influenza trivalent, with pr eservative (Fluzone; Afluria) 6mo and older 05/23/2015 [facility] [id number] completed Influenza trivalent, with pr eservative (Fluzone; Afluria) 6mo and older 06/09/2014 [facility] [id number] completed Influenza trivalent, with pr eservative (Fluzone; Afluria) 6mo and older 05/30/2013 [facility] [id number] completed Influenza trivalent, with pr eservative (Fluzone; Afluria) 6mo and older 07/30/2011 [facility] [id number] completed Tdap Tetanus diptheria acell ular pertussis (Boostrix; Adacel) 7yo and older 03/18/2011 [facility] [id number] completed Influenza trivalent, with pr eservative (Fluzone; Afluria) 6mo and older 06/27/2010 [facility] [id number] completed H1N1 Inj Preservative Free 06/22/2009 [facility] [id number] completed Influenza trivalent, with pr eservative (Fluzone; Afluria) 6mo and older 06/21/2008 [facility] [id number] completed Influenza trivalent, with pr eservative (Fluzone; Afluria) 6mo and older 06/23/2007 [facility] [id number] completed Tdap Tetanus diptheria acell ular pertussis (Boostrix; Adacel) 7yo and older 06/23/2007 [facility] [id number] completed Influenza trivalent, with pr eservative (Fluzone; Afluria) 6mo and older 07/21/2006 [facility] [id number] completed Meningococcal MCV4P 06/19/2006 [facility] [id number] compl eted Influenza trivalent, with pr eservative (Fluzone; Afluria) 6mo and older 05/20/2005 [facility] completed Hepatitis B Pediatric (Enger ix B; Recombivax HB) to less than 20 yo 04/20/2001 [facility] completed Hepatitis B Pediatric (Enger ix B; Recombivax HB) to less than 20 yo 01/12/2001 [facility] completed Hepatitis B Pediatric (Enger ix B; Recombivax HB) to less than 20 yo 12/10/2000 [facility] completed Td Tetanus diptheria (Tdvax) 7yo and older 12/10/2000 [facility] completed MMR, measles mumps and rubel la Live (Priorix; M-M-R II) 12mo and older 06/19/1999 [facility] completed DTaP (Infanrix) 6wks to less than 7yo 07/10/1993 [facility] N completed OPV 07/10/1993 [facility] completed MGaQ-DKN-[id number] (Pentacel) 2mo to less than 5yo 01/27/1990 [facility] completed DTP 01/27/1990 [facility] completed Hib (HbOC) 01/27/1990 [facility] completed OPV 01/27/1990 [facility] completed MMR, measles mumps and rubel la Live (Priorix; M-M-R II) 12mo and older 10/08/1989 [facility] completed Diptheria & Tetanus, 6wks to less than 7yo 09/25/1989 [facility] completed Varicella live (Varivax) 12mo and older 1989 [facility] completed Diptheria & Tetanus, 6wks to less than 7yo 1988 [facility] completed OPV 1988 [facility] completed DTP 1988 [facility] completed OPV 1988 [facility] completed Encounters Encounter Type Encounter Reason Primary Diagnosis Location Date Inpatient breakthrough seizures Unspecifie d convulsions (CMS/HCC V24, CMS/HCC V28[place] [facility] [place] Care Team Organization Name Specialty Phone Email Start Date End Da te [facility] [place] [facility] 04/14/2025 [facility] 04/12/2025 [facility] [place] [facility] 04/07/2025 [facility] 07/01/2022
--- OUTSIDE RECORDS SUMMARY | 2025-06-18 15:59 | XMS_ITS ---
Author Organization [facility] [address] [place] [address] [place] [address] Phone Care Team Providers Care Global Risk Management Director Name Role Phone Sid Jo MD Primary Care Provider [phone] Active Problems Problem Noted Date Diagnosed Date [place] [place] [facility] V28) 04/07/2025 Recurrent seizures [place] [place] [facility] V28) Esophagitis 10/16/2024 Multifocal pneumonia 10/15/2024 Anemia 05/24/2024 Late effect of cerebrovascular accident (CVA) 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) 11/03/19 Overview (05/24/2024): Offered growth hormone [...] pathologic fractures, neurofibromatosis Malignant neoplasm of brain ([facility] V24, [facility] V28) 06/19/2006 Overview (05/24/2024): followed by dr zamora and oncology yearly PDD (pervasive developmental disorder) 6 Hypothyroidism 06/19/2006 Overview (05/24/2024): on synthroid 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 She agreed. Intractable epilepsy ([facility] V24, [facility] V28) 05/04/2006 Overview (05/24/2024): Previously followed by dr malagon, at transfer to Dr Watts was on Dilantin and Phenobarb, care transferred to dr fareed watts 12/28 (Adult Nerurology at [facility]), switch to dr trevino 05/01, [...] Overview (05/24/2024): see neuropsych eval 07/30 Neurofibromatosis ([facility] V24, [facility] V28) 06/2006 Current Treatment and Therapy Plans No current plan information found. Past Treatment and Therapy Plans No past plan information found. Lifetime Dose Tracking * Chemical Lifetime Dose Automatic Entry Manual Entr y CTDIvol 9.15 mGy 9.15 mGy 0 mGy
--- OUTSIDE RECORDS SUMMARY | 2025-06-18 15:59 | XMS_ITS | Encounter Summary ---
Author Organization [facility] Address [address] [place] [address] Care Team Providers Care Division Controller Name Role Phone Sid Jo MD Primary Care Provider [phone] Reason for Visit * Reason Onset Date Comments Hospital Follow-up 06/16/2025 Patient nicolas jacobsen is concerned patient is still not eating and excessively sleeping Encounter Details Date Type Department Care Team (Late st Contact Info) Description 06/16/2025 Telephone Adult Medicine [address] [phone] Selene Dorsey MA Social History Tobacco Use [...] care for your loved ones. For example, children's book author or elderly care for an older adult? [...] Progress Notes * Tonya Vazquez RN - 06/16/2025 10:10 AM EDT An appointment was made for her to be seen in the office on 06/21/25 at 3:30 pm with Julissa Melendez and she is in agreement with this plan. She was instructed to take the pt to the ER if she develops and new or worsening symptoms prior to her appointment. * Selene Dorsey MA - 06/16/2025 9:32 AM EDT Hospital/ER follow up appointment needed Hospital patient was treated at: [facility] Was this only an ER visit or was the patient admitted to the hospital? ER Visit only Date of visit if ER visit only: 06/14/25 If patient was admitted what was the date of discharge? Reason/diagnosis for visit or stay: vomiting/not eating/hard time walking/lots of phlegm When was the patient told to follow up? With in 1week Was visit or stay related to an injury? If yes, what was the date of injury (DOI)? No If yes, was the injury due to: Not 3rd alliance party related documented in this encounter Plan of Treatment Upcoming Encounters Date Type Department Care Team (Late st Contact Info) Description 06/21/2025 3:30 PM EDT Office Visit Adult Medicine [address] [phone] Julissa Melendez PA [address] [place] [address] 07/06/2025 8:20 AM EST Office Visit [address] [phone] Andres Pisano MD [address] [place] [address] 12/07/2025 8:30 AM EDT Office Visit Adult [address] [phone] Sid Jo MD [address] [place] [address] documented as of this encounter Visit Diagnoses Not on filedocumented in this encounter Care Teams Division Controller Relationship Specialty Start Date End Date Sid Jo MD [address] [place] [address] PCP - General Internal Medicine 06/29/24 documented as of this encounter
--- OUTSIDE RECORDS SUMMARY | 2025-06-18 15:59 | XMS_ITS | Encounter Summary ---
Author Organization [facility] Address [address] [place] [address] Care Team Providers Care Pinion Staker Name Role Phone Sid Jo MD Primary Care Provider [phone] Reason for Visit * Reason Onset Date Comments Immunizations 06/05/2025 Encounter Details Date Type Department Care Team (Late st Contact Info) Description 06/05/2025 Telephone Adult Medicine [address] [phone] Sid Jo MD [address] [place] [address] Social History Tobacco Use Types Packs/Day Years [...] care for your loved ones. For example, director of early childhood or elderly care for an older adult? [...] 3:30 PM EDT Office Visit Adult Medicine [address] [phone] Julissa Melendez PA [address] [place] [address] 07/06/2025 8:20 AM EST Office Visit [address] [phone] Andres Pisano MD [address] [place] [address] 12/07/2025 8:30 AM EDT Office Visit Adult Medicine [address] [phone] Sid Jo MD [address] [place] [address] documented as of this encounter Visit Diagnoses Not on filedocumented in this encounter Care Teams Pinion Staker Relationship Specialty Start Date End Date Sid Jo MD [address] [place] [address] PCP - General Internal Medicine 06/29/24 documented as of this encounter
--- OUTSIDE RECORDS SUMMARY | 2025-06-18 15:59 | XMS_ITS | Encounter Summary ---
Author Organization [facility] Address [address] [place] [address] Care Team Providers Care Tuck Pointer Helper Name Role Phone Sid Jo MD Primary Care Provider [phone] Reason for Visit * Reason Onset Date Comments Forms/questionnaires 06/12/2025 Encounter Details Date Type Department Care Team (Late st Contact Info) Description 06/12/2025 Telephone Adult Medicine [address] [phone] Sid Jo MD [address] [place] [address] Social History Tobacco Use Types Packs/Day Years [...] in this encounter Progress Notes * Norah Dickinosn - 06/12/2025 11:29 AM EDT Patient mother called wanting to know when was the last time or if her daughter ever had gotten a pneumonia vaccines. documented in this encounter Plan of Treatment Upcoming Encounters Date Type Department Care Team (Late st Contact Info) Description 06/21/2025 3:30 PM EDT Office Visit Adult Medicine [address] [phone] Julissa Melendez PA [address] [place] [address] 07/06/2025 8:20 AM EST Office Visit [address] [phone] Andres Pisano MD [address] [place] [address] 12/07/2025 8:30 AM EDT Office Visit Adult Medicine [address] [phone] Sid Jo MD [address] [place] [address] documented as of this encounter Visit Diagnoses Not on filedocumented in this encounter Care Teams Tuck Pointer Helper Relationship Specialty Start Date End Date Sid Jo MD [address] [place] [address] PCP - General Internal Medicine 06/29/24 documented as of this encounter
--- OUTSIDE RECORDS SUMMARY | 2025-06-18 15:59 | XMS_ITS | Encounter Summary ---
Author Organization [facility] Address [address] [place] [address] Care Team Providers Care Medication Assistant Name Role Phone Sid Jo MD Primary Care Provider [phone] Encounter Details Date Type Department Care Team (Late st Contact Info) Description 05/22/2025 Results Follow-Up Adult Medicine [address] [phone] Sid Jo MD [address] [place] [address] Social History Tobacco Use Types Packs/Day Years [...] for your loved ones. For example, child development instructor or elderly care for an older adult? [...] 3:30 PM EDT Office Visit Adult Medicine [address] [phone] Julissa Melendez PA [address] [place] [address] 07/06/2025 8:20 AM EST Office Visit [address] [phone] Andres Pisano MD [address] [place] [address] 12/07/2025 8:30 AM EDT Office Visit Adult Medicine [address] [phone] Sid Jo MD [address] [place] [phone] documented as of this encounter Visit Diagnoses Not on filedocumented in this encounter Care Teams Medication Assistant Relationship Specialty Start Date End Date Sid Jo MD [address] [place] [address] PCP - General Internal Medicine 06/29/24 documented as of this encounter
--- OUTSIDE RECORDS SUMMARY | 2025-06-18 15:59 | XMS_ITS | Encounter Summary ---
Author Organization [facility] Address [address] [place] [address] Care Team Providers Care Manufacturing Area Manager Name Role Phone Sid Jo MD Primary Care Provider [phone] Reason for Visit * Reason Onset Date Comments Vomiting 06/14/2025 Postcoital Mucus Check 06/14/2025 Encounter Details Date Type Department Care Team (Late st Contact Info) Description 06/14/2025 Nurse Triage Adult Medicine [address] [phone] Sid Jo MD [address] [place] [address] Social History Tobacco Use Types Packs/Day Years [...] your loved ones. For example, child welfare social worker or elderly care for an older adult? [...] plan and states she will go to [facility] ER. Reason for Disposition [1] Drinking very [...] does not get a period. Protocols used: [id number] * Norah Alok - 06/14/2025 4:52 PM [...] traveled recently to another state outside of [place], [place], [place], [place], [place], [place], [place]? no o If yes, did you [...] of accident/Injury: No If yes, gather 3rd libertarian insurance information Third Libertarian Information: not applicable PCP: Sid Jo MD Payor: MEDICARE / Plan: MEDICARE PART A & B / Product Type: Medicare / documented in this encounter Plan of Treatment Upcoming Encounters Date Type Department Care Team (Late st Contact Info) Description 06/21/2025 3:30 PM EDT Office Visit Adult [address] [phone] Julissa Melendez PA [address] [place] [address] 07/06/2025 8:20 AM EST Office Visit [address] [phone] Andres Pisano MD [address] [place] [address] 12/07/2025 8:30 AM EDT Office Visit Adult [address] [phone] Sid Jo MD [address] [place] [address] documented as of this encounter Visit Diagnoses Not on filedocumented in this encounter Care Teams Manufacturing Area Manager Relationship Specialty Start Date End Date Sid Jo MD [address] [place] [address] PCP - General Internal Medicine 06/29/24 documented as of this encounter
--- NOTE | 2025-06-18 17:04 | ECG_ITS ---
Test Reason : WEAKNESS Blood Pressure : */* mmHG Vent. Rate : 94 BPM Atrial Rate : 94 BPM P-R Int : 146 ms QRS Dur : 80 ms QT Int : 366 ms P-R-T Axes : 28 62 -33 degrees QTcB Int : 457 ms Normal sinus rhythm ST & T wave abnormality, consider inferior ischemia ST & T wave abnormality, consider anterolateral ischemia Abnormal ECG No previous ECGs available Referred By: Kalin Marshall Electronically Signed By: ZAHIRA COMBS
--- NOTE | 2025-06-18 19:33 | PC.NURSE ---
Pharmacy contacted for cortef dose, awaiting arrival.
[2025-06-18 20:10] LABS: NT Pro B Type Natriuretic Pept 63.2 pg/mL (<300)
[2025-06-18 20:11] LABS: Troponin-I High Sensitivity < 2.7 ng/L (<3.5-17.0)
[2025-06-18 20:25] VITALS: BP 111/80; PULSE 94; RESP 18; TEMP 36.4; O2SAT 95
== END 2025-06-18 20:28 | disposition home or self-care (01) ==
PROVIDERS: Nurse Practitioner Family; Emergency Provider Emergency Medicine; PCP Internal Medicine
DX: R53.1 Weakness (principal); R42 Dizziness and giddiness; F79 Unspecified intellectual disabilities; G40.909 Epilepsy, unspecified, not intractable, without status epilepticus; Z86.73 Personal history of transient ischemic attack (TIA), and cerebral infarction without residual deficits; Z79.899 Other long term (current) drug therapy
CPT/HCPCS: 36415; 70450; 71045; 80048; 80076; 83735; 83880; 84484; 85025; 93005; 99283; 99284

== ENCOUNTER → 2025-06-18 17:04 | Outpatient (BNV) | payer MEDICARE, MEDICAID, SELFPAY | PROVIDERS: Emergency Provider Emergency Medicine; PCP Internal Medicine; Visit Provider Internal Medicine | DX: R94.31 Abnormal electrocardiogram [ECG] [EKG] (principal); R53.1 Weakness | CPT/HCPCS: 93010 ==

== ENCOUNTER → 2025-06-18 17:04 | Outpatient (BNV) | payer MEDICARE, MEDICAID, SELFPAY | PROVIDERS: Emergency Provider Emergency Medicine; PCP Internal Medicine; Visit Provider Nuclear Medicine | DX: G31.89 Other specified degenerative diseases of nervous system (principal); I63.81 Other cerebral infarction due to occlusion or stenosis of small artery; I67.2 Cerebral atherosclerosis; I51.7 Cardiomegaly; R09.89 Other specified symptoms and signs involving the circulatory and respiratory systems | CPT/HCPCS: 70450; 71045 ==